=== PATIENT | female | born 1975 | race Caucasian/White ===

== ENCOUNTER → 2016-07-25 | Outpatient (CLI) | payer OTHER ==
[~2016-07-25] MED LIST: CHOL100010 PO; CHOL100027 PO; CRFL PO; DICY10CA55 PO; DOCU-94 PO; GLC/500 PO; HYDR-5688 PO; LORA-741 PO; METO50TA16 PO; MOME50SP5; ONDA4TAB10 SL; PANT40TA PO; ZNTT/150 PO
--- NOTE | 2016-07-25 16:47 | MAMMOGRAPHY REPORT ---
BILATERAL DIGITAL SCREENING MAMMOGRAM TOMOSYNTHESIS WITH CAD: 07/25/2016 CLINICAL HISTORY: Routine screening. Patient has no complaints. TECHNIQUE: Breast tomosynthesis in addition to standard 2D mammography was performed. Current study was also evaluated with a Computer Aided Detection (CAD) system. COMPARISON: Comparison is made to exams dated: 07/23/2015 mammogram, 03/04/2014 mammogram - [facility], and 02/11/2013 mammogram. BREAST COMPOSITION: There are scattered areas of fibroglandular density in both breasts. FINDINGS: The parenchymal pattern is similar to prior mammograms. No suspicious mass, architectural distortion or cluster of microcalcifications is seen. IMPRESSION: ACR BI-RADS CATEGORY 2: BENIGN There is no mammographic evidence of malignancy. A 1 year screening mammogram is recommended. The p atient will receive written notification of the results. Approximately 10% of breast cancers are not detected with mammography. A negative mammographic repor t should not delay biopsy if a clinically suggestive mass is present. Radha Hendrickson M.D. ay/:07/25/2016 16:19:43 Client Engagement Manager: Ebony DOMINGUEZ(R)(M), [facility] letter sent: Normal 1/2 BI-RADS Code: ACR BI-RADS Category 2: Benign
== END | disposition home or self-care (01) ==
LOC: C.MAMM 13:35
PROVIDERS: ATTEND Internal Medicine
DX: Z12.31 Encounter for screening mammogram for malignant neoplasm of breast (principal)

== ENCOUNTER 2016-08-15 05:40 | Emergency (ER) | payer OTHER ==
[~2016-08-15] VITALS: Ht 162.6 cm; Wt 77.9 kg
[~2016-08-15 05:40] MED LIST changes: -CHOL100027 PO; -CRFL PO; -DICY10CA55 PO; -HYDR-5688 PO
[2016-08-15 05:44] VITALS: TEMP 36.7; Ht 162.6 cm; Wt 77.9 kg
[2016-08-15] MEDS ORDERED: ONDANSETRON INJ 2 MG/ML 2 ML VIAL IV STA (06:02)
[2016-08-15] MEDS ORDERED: CHOL100027 PO (06:11)
[2016-08-15] MEDS ORDERED: MoRPHine SULFATE 4 MG/ML 1 ML CARP\\VIAL IV ONE (06:15)
[2016-08-15] MEDS ORDERED: SODIUM CHLORIDE 0.9% 1000ML 1,000 ML IV ONE (06:15)
[2016-08-15 06:32] LABS: BASO % 0.3 %; BASO ABS # 0.03 K/uL (0-0.2); COMPLETE YES; EOS % 2.3 %; HEMATOCRIT 42.8 % (37-47); IG% 0.3 %; LYMPH % 31.9 %; MEAN CELL VOLUME 90.3 fL (80-100); MEAN CORPUSCULAR HEMOGLOBIN 31.4 pg (25-34); MEAN CORPUSCULAR HGB CONC 34.8 g/dl (32-36); MEAN PLATELET VOLUME 10.4 fL (7.4-10.4); MONO % 6.1 %; NEUT % 59.1 %; PLATELET COUNT 217 K/uL (130-400); RED BLOOD COUNT 4.74 M/uL (4.2-5.4); WHITE BLOOD COUNT 11.28 K/uL (4.8-10.8)
[2016-08-15 06:51] LABS: BUN/CREATININE RATIO 12.5 (10-20); CALCIUM 8.8 mg/dl (8.5-10.1); CREATININE 0.96 mg/dl (0.60-1.20); MANUAL MICROSCOPIC REQUIRED? YES; URINE APPEARANCE CLEAR (CLEAR); URINE BILIRUBIN NEG (NEG); URINE COLOR YELLOW; URINE NITRITE NEG (NEG); URINE SPECIFIC GRAVITY >= 1.030 (1.000-1.030); UROBILINOGEN NEG (NEG)
[2016-08-15 06:53] LABS: ALB/GLOB RATIO 1.1 (0.9-2)
[2016-08-15 07:01] LABS: REVIEW REQ? NO
[2016-08-15 07:13] LABS: URINE BACTERIA 1+ (NEG); URINE MUCUS PRESENT (NONE PRSENT)
[2016-08-15 07:14] LABS: URINE RBC 0-4 /hpf (0-4)
[2016-08-15 07:16] LABS: ZZUR CULT IF INDIC CLEAN CATCH YES
--- NOTE | 2016-08-15 07:46 | DIAGNOSTIC IMAGING REPORT ---
Right upper quadrant ultrasound GALLBLADDER-ABD LIMITED CLINICAL HISTORY: RUQ abd pain TECHNIQUE: Ultrasound COMPARISON STUDY: None Findings: Normal gallbladder. Liver is uniform. Pancreas and right kidney are unremarkable. IMPRESSION: Negative study Electronically signed by: Diego Landers M.D. 08/15/2016 7:45 AM Dictated Date/Time: 08/15/2016 7:43 AM
--- NOTE | 2016-08-15 09:09 | EMERGENCY ROOM VISIT NOTE ---
ED Visit Note Patient was signed to me at change of shift by Cecil Uribe PA-C pending ultrasound reports. Please refer to his dictation for entire historical and physical examination information. Ultrasound results demonstrate no acute findings. Patient's labs were reviewed. Patient was seen and evaluated by myself. She is complaining of increasing pain in the RIGHT upper quadrant after having an ultrasound performed. I did repeat abdominal exam. Patient is minimally tender in the RIGHT upper quadrant. She had no tenderness with distraction. She is not guarding. Abdomen is soft otherwise. Patient was provided one [place] for breakthrough pain. She was provided a short prescription at home. Prescription drug monitoring per gram was reviewed prior to providing a prescription for home. The patient was encouraged to follow up with her primary care provider in 24-48 hours for repeat abdominal exam. She was educated on worrisome symptoms for return visit to the emergency department. Patient discharged home afebrile and in good condition.
[2016-08-15] MEDS ORDERED: HYDR-5688 PO (09:12)
[2016-08-15] MEDS ORDERED: HYDROCODONE/ACETAMOPHEN 5/325MG TAB PO ONE (09:15)
[2016-08-15 09:31] VITALS: BP 97/48; PULSE 64; O2SAT 99
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
== END 2016-08-15 09:32 | disposition home or self-care (01) ==
LOC: C.EDB 05:42
DX: R10.11 Right upper quadrant pain (principal); E11.9 Type 2 diabetes mellitus without complications; F41.9 Anxiety disorder, unspecified; F17.200 Nicotine dependence, unspecified, uncomplicated; Z98.51 Tubal ligation status; Z79.84 Long term (current) use of oral hypoglycemic drugs; Z79.899 Other long term (current) drug therapy; Z88.5 Allergy status to narcotic agent; Z91.041 Radiographic dye allergy status; Z91.09 Other allergy status, other than to drugs and biological substances; Z83.3 Family history of diabetes mellitus; Z80.9 Family history of malignant neoplasm, unspecified; Z82.49 Family history of ischemic heart disease and other diseases of the circulatory system

== ENCOUNTER 2016-11-16 10:40 | Emergency (ER) | payer OTHER ==
[~2016-11-16] VITALS: Ht 162.6 cm; Wt 77.9 kg
[~2016-11-16 10:40] MED LIST changes: -CHOL100010 PO; +CHOL100027 PO; +HYDR-5688 PO; -MOME50SP5
[2016-11-16 10:44] VITALS: TEMP 36.6; Ht 162.6 cm; Wt 77.9 kg
[2016-11-16 12:05] LABS: BASO % 0.2 %; BASO ABS # 0.02 K/uL (0-0.2); COMPLETE YES; EOS % 1.9 %; HEMATOCRIT 42.5 % (37-47); IG% 0.2 %; LYMPH % 37.7 %; LYMPH ABS # 3.25 K/uL (1.2-3.4); MEAN CELL VOLUME 90.6 fL (80-100); MEAN CORPUSCULAR HEMOGLOBIN 30.9 pg (25-34); MEAN CORPUSCULAR HGB CONC 34.1 g/dl (32-36); MEAN PLATELET VOLUME 10.7 fL (7.4-10.4); MONO % 7.1 %; NEUT % 52.9 %; PLATELET COUNT 203 K/uL (130-400); RED BLOOD COUNT 4.69 M/uL (4.2-5.4); WHITE BLOOD COUNT 8.61 K/uL (4.8-10.8)
[2016-11-16 12:11] LABS: URINE APPEARANCE CLEAR (CLEAR); URINE BILIRUBIN NEG (NEG); URINE COLOR YELLOW; URINE NITRITE NEG (NEG); URINE PH 7.5 (4.5-7.5); URINE SPECIFIC GRAVITY 1.007 (1.000-1.030); UROBILINOGEN NEG (NEG); ZZUR CULT IF INDIC CLEAN CATCH NO
[2016-11-16 12:17] LABS: MANUAL MICROSCOPIC REQUIRED? NO; REVIEW REQ? NO
[2016-11-16 12:29] LABS: BUN/CREATININE RATIO 11.5 (10-20); CREATININE 0.87 mg/dl (0.60-1.20); POTASSIUM 4.3 mmol/L (3.5-5.1)
[2016-11-16 12:31] LABS: ALB/GLOB RATIO 1.2 (0.9-2)
[2016-11-16] MEDS ORDERED: SODIUM CHLORIDE 0.9% 1000ML 1,000 ML IV STA (12:31)
[2016-11-16] MEDS ORDERED: ONDANSETRON INJ 2 MG/ML 2 ML VIAL IV STA (12:31)
[2016-11-16] MEDS ORDERED: MoRPHine SULFATE 4 MG/ML 1 ML CARP\\VIAL IV STA (12:31)
--- NOTE | 2016-11-16 13:15 | DIAGNOSTIC IMAGING REPORT ---
Right upper quadrant ultrasound GALLBLADDER-ABD LIMITED CLINICAL HISTORY: ABDOMINAL PAIN/GI pain. Nausea. TECHNIQUE: Ultrasound COMPARISON STUDY: 08/15/2016 FINDINGS: Negative gallbladder. Common bile duct 4.5 mm. Liver spleen and pancreas are unremarkable. Right kidney is negative for hydronephrosis. IMPRESSION: Negative study. No change from the prior exam. Electronically signed by: Diego Landers M.D. 11/16/2016 1:14 PM Dictated Date/Time: 11/16/2016 1:12 PM
[2016-11-16] MEDS ORDERED: SUCRALFATE 1 GM/10 ML UDC PO STA (14:04)
[2016-11-16] MEDS ORDERED: DICYCLOMINE HCL 10 MG CAP PO ONE (14:15)
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
[2016-11-16] MEDS ORDERED: DICY10CA55 PO (15:49)
[2016-11-16] MEDS ORDERED: CRFL PO (15:49)
[2016-11-16 16:23] VITALS: BP 97/60; PULSE 53; O2SAT 100
== END 2016-11-16 16:24 | disposition home or self-care (01) ==
LOC: C.EDC 11:49
DX: R10.13 Epigastric pain (principal); E11.9 Type 2 diabetes mellitus without complications; F41.9 Anxiety disorder, unspecified; K21.9 Gastro-esophageal reflux disease without esophagitis; Z98.51 Tubal ligation status; F17.200 Nicotine dependence, unspecified, uncomplicated; Z79.4 Long term (current) use of insulin; Z79.899 Other long term (current) drug therapy; Z88.5 Allergy status to narcotic agent; Z91.041 Radiographic dye allergy status; Z91.09 Other allergy status, other than to drugs and biological substances; Z83.3 Family history of diabetes mellitus; Z80.9 Family history of malignant neoplasm, unspecified; Z82.49 Family history of ischemic heart disease and other diseases of the circulatory system

== ENCOUNTER → 2016-11-25 | Outpatient (CLI) | payer OTHER ==
[~2016-11-25] MED LIST changes: +CRFL PO; +DICY10CA55 PO
[2016-11-30 16:27] LABS: IGA SERUM 168 mg/dL (81-463); TIS TRANS IGA 1 U/mL (<4)
== END | disposition home or self-care (01) ==
LOC: C.LAB1850 16:55
PROVIDERS: ATTEND Registered Nurse
DX: R11.0 Nausea (principal); R10.9 Unspecified abdominal pain

== ENCOUNTER → 2016-12-06 | Outpatient (CLI) | payer OTHER ==
[~2016-12-06] MED LIST changes: +SINCALIDE INJ 1.5 MCG in SODIUM CHLORIDE 0.9% 100ML 100 ML IV SCH
--- NOTE | 2016-12-06 13:05 | DIAGNOSTIC IMAGING REPORT ---
NUCLEAR MEDICINE HEPATOBILIARY SCAN WITH EJECTION FRACTION ANALYSIS CLINICAL HISTORY: R11.0 [id number] Abdominal [id number] COMPARISON STUDY: Biliary ultrasound dated 11/16/2016 FINDINGS: The patient was injected with 5.3 mCi of technetium 90 9M Choletec. Anterior imaging was performed. Hepatic excretion appeared unremarkable. There was normal passage of activity into small bowel. The gallbladder was first visualized on the 15 minute image. A 1 hour, the patient was administered 1.5 mcg of sincalide utilizing a 30 minute infusion. The gallbladder ejection fraction was normal measuring 74%. The patient did report abdominal pain with Kinevac infusion. IMPRESSION: 1. No evidence of cystic duct obstruction 2. Normal gallbladder ejection fraction of 74% 3. The patient reported abdominal pain with Kinevac infusion. Electronically signed by: Nathen Sweet M.D. 12/06/2016 1:04 PM Dictated Date/Time: 12/06/2016 1:02 PM
== END | disposition home or self-care (01) ==
LOC: C.NUCL 10:35
PROVIDERS: ATTEND Registered Nurse
DX: R11.0 Nausea (principal); R10.9 Unspecified abdominal pain

== ENCOUNTER → 2017-01-23 | Outpatient (CLI) | payer OTHER ==
[~2017-01-23] MED LIST changes: -SINCALIDE INJ 1.5 MCG in SODIUM CHLORIDE 0.9% 100ML 100 ML IV SCH
--- NOTE | 2017-01-23 10:51 | DIAGNOSTIC IMAGING REPORT ---
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 The cardiomediastinal silhouette is normal. The lungs are clear. The pulmonary vasculature is normal. IMPRESSION: Negative study. No change from the prior exam. The above report was generated using voice recognition software. It may contain grammatical, syntax or spelling errors. Electronically signed by: Diego Landers M.D. 01/23/2017 10:50 AM Dictated Date/Time: 01/23/2017 10:49 AM
[2017-01-23 12:33] LABS: ALT/SGPT 19 U/L (12-78); AST/SGOT 12 U/L (15-37); BLOOD UREA NITROGEN 10 mg/dl (7-18); BUN/CREATININE RATIO 11.1 (10-20); CALCIUM 8.7 mg/dl (8.5-10.1); CARBON DIOXIDE 28 mmol/L (21-32); CHLORIDE 106 mmol/L (98-107); CREATININE 0.94 mg/dl (0.60-1.20); GLUCOSE 134 mg/dl (70-99); POTASSIUM 4.1 mmol/L (3.5-5.1); SODIUM 139 mmol/L (136-145)
[2017-01-23 12:36] LABS: ALB/GLOB RATIO 1.2 (0.9-2); ALKALINE PHOSPHATASE 65 U/L (45-117)
== END | disposition home or self-care (01) ==
LOC: C.RAD1850 09:53
PROVIDERS: ATTEND Urology
DX: N28.89 Other specified disorders of kidney and ureter (principal)

== ENCOUNTER → 2017-02-16 | Outpatient (CLI) | payer OTHER ==
[~2017-02-16] MED LIST changes: -HYDR-5688 PO
== END | disposition home or self-care (01) ==
LOC: C.PATHSPEC 17:29
PROVIDERS: ATTEND Dermatology
DX: L91.8 Other hypertrophic disorders of the skin (principal)

== ENCOUNTER 2017-02-18 13:56 | Emergency (ER) | payer OTHER ==
[~2017-02-18] VITALS: Ht 162.6 cm; Wt 77.9 kg
[2017-02-18 14:04] VITALS: TEMP 36.6; Ht 162.6 cm; Wt 77.9 kg
[2017-02-18] MEDS ORDERED: MoRPHine SULFATE 4 MG/ML 1 ML CARP\\VIAL IV STA (14:16)
[2017-02-18] MEDS ORDERED: ONDANSETRON INJ 2 MG/ML 2 ML VIAL IV STA (14:16)
[2017-02-18 15:01] LABS: BASO % 0.3 %; BASO ABS # 0.02 K/uL (0-0.2); COMPLETE YES; HEMATOCRIT 41.3 % (37-47); IG% 0.3 %; LYMPH % 40.1 %; LYMPH ABS # 3.05 K/uL (1.2-3.4); MEAN CELL VOLUME 90.6 fL (80-100); MEAN CORPUSCULAR HGB CONC 35.4 g/dl (32-36); MEAN PLATELET VOLUME 10.4 fL (7.4-10.4); MONO % 5.8 %; NEUT % 51.5 %; PLATELET COUNT 230 K/uL (130-400); RED BLOOD COUNT 4.56 M/uL (4.2-5.4); WHITE BLOOD COUNT 7.61 K/uL (4.8-10.8)
[2017-02-18] MEDS ORDERED: HYDROmorphone INJ 1 MG/ML SYR IV STA (15:06)
[2017-02-18 15:20] LABS: BUN/CREATININE RATIO 10.1 (10-20); CALCIUM 8.9 mg/dl (8.5-10.1); CREATININE 0.95 mg/dl (0.60-1.20); POTASSIUM 3.9 mmol/L (3.5-5.1)
--- NOTE | 2017-02-18 15:46 | DIAGNOSTIC IMAGING REPORT ---
CHEST 2 VIEWS ROUTINE CLINICAL HISTORY: Chest pain. Evaluate for pneumothorax. COMPARISON STUDY: Chest radiograph January 23, 2017. FINDINGS: Lung volumes are normal. No consolidation is identified. No pneumothorax or pleural effusion is present. Cardiomediastinal silhouette is normal. Appearance of the chest is unchanged. IMPRESSION: No acute cardiopulmonary findings. Electronically signed by: Ricky Mendoza M.D. 02/18/2017 3:45 PM Dictated Date/Time: 02/18/2017 3:44 PM
--- NOTE | 2017-02-18 15:48 | DIAGNOSTIC IMAGING REPORT ---
THORACIC SPINE 3 VIEWS ROUTINE CLINICAL HISTORY: Chest and upper back pain. Evaluate for fracture. COMPARISON STUDY: Chest radiograph March 28, 2016. FINDINGS: Alignment of the thoracic spine is anatomic. There is no acute fracture. Several Schmorl's nodes are unchanged since earlier CT of March 25, 2016 with slight loss of vertebral body height at the T10 and L2 levels. There is minimal multilevel degenerative disc disease. There is no acute thoracic spine fracture. IMPRESSION: 1. No acute thoracic spine fracture or subluxation. 2. No change in a few Schmorl's nodes with slight loss of height of the superior endplates of L2 and T10. This is chronic. 3. Minimal multilevel degenerative disc disease of the thoracic spine. Electronically signed by: Ricky Mendoza M.D. 02/18/2017 3:47 PM Dictated Date/Time: 02/18/2017 3:45 PM
[2017-02-18 16:52] VITALS: BP 154/76; PULSE 54; O2SAT 98
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
== END 2017-02-18 16:59 | disposition home or self-care (01) ==
LOC: C.EDB 13:59
DX: R07.9 Chest pain, unspecified (principal); M54.6 Pain in thoracic spine; E11.9 Type 2 diabetes mellitus without complications; F17.210 Nicotine dependence, cigarettes, uncomplicated; F41.9 Anxiety disorder, unspecified; Z83.3 Family history of diabetes mellitus; Z80.9 Family history of malignant neoplasm, unspecified; Z82.49 Family history of ischemic heart disease and other diseases of the circulatory system; Z79.899 Other long term (current) drug therapy

== ENCOUNTER → 2017-03-09 | Outpatient (CLI) | payer OTHER ==
[~2017-03-09] MED LIST changes: -CRFL PO; -DICY10CA55 PO; -DOCU-94 PO; -ONDA4TAB10 SL
== END | disposition home or self-care (01) ==
LOC: C.PATHSPEC 11:05
PROVIDERS: ATTEND Plastic Surgery
DX: L72.0 Epidermal cyst (principal)

== ENCOUNTER 2017-04-02 21:45 | Emergency (ER) | payer OTHER ==
[~2017-04-02] VITALS: Ht 162.6 cm; Wt 79.0 kg
[2017-04-02 21:51] VITALS: TEMP 37.3; Ht 162.6 cm; Wt 79.0 kg
[2017-04-02] MEDS ORDERED: HYDROmorphone INJ 1 MG/ML SYR IV STA (22:12)
[2017-04-02] MEDS ORDERED: ONDANSETRON INJ 2 MG/ML 2 ML VIAL IV STA (22:12)
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
[2017-04-02 23:20] VITALS: BP 114/80; PULSE 78; O2SAT 98
== END 2017-04-02 23:21 | disposition home or self-care (01) ==
LOC: C.EDB 21:46 → C.EDC 23:21
DX: M25.512 Pain in left shoulder (principal); F41.9 Anxiety disorder, unspecified; E11.9 Type 2 diabetes mellitus without complications; Z83.3 Family history of diabetes mellitus; Z82.49 Family history of ischemic heart disease and other diseases of the circulatory system; F17.200 Nicotine dependence, unspecified, uncomplicated

== ENCOUNTER → 2017-05-17 | Outpatient (CLI) | payer OTHER | END | disposition home or self-care (01) | LOC: C.LABBFT 14:12 | PROVIDERS: ATTEND Nurse Practitioner | DX: R39.9 Unspecified symptoms and signs involving the genitourinary system (principal) ==

== ENCOUNTER → 2017-06-07 | Outpatient (CLI) | payer OTHER ==
[2017-06-07 18:04] LABS: URINE APPEARANCE CLEAR (CLEAR); URINE BILIRUBIN NEG (NEG); URINE COLOR YELLOW; URINE EPITHELIAL CELL AUTO >30 /lpf (0-5); URINE NITRITE NEG (NEG); URINE PH 6.5 (4.5-7.5); URINE SPECIFIC GRAVITY 1.012 (1.000-1.030); UROBILINOGEN NEG (NEG)
[2017-06-07 18:20] LABS: REVIEW REQ? NO
[2017-06-07 18:21] LABS: MANUAL MICROSCOPIC REQUIRED? NO
== END | disposition home or self-care (01) ==
LOC: C.LABBFT 14:54
PROVIDERS: ATTEND Nurse Practitioner
DX: R39.9 Unspecified symptoms and signs involving the genitourinary system (principal)

== ENCOUNTER → 2017-07-13 | Outpatient (CLI) | payer OTHER ==
[2017-07-13 12:45] LABS: ALBUMIN 3.9 gm/dl (3.4-5.0); ALT/SGPT 17 U/L (12-78); BLOOD UREA NITROGEN 12 mg/dl (7-18); CALCIUM 9.5 mg/dl (8.5-10.1); CARBON DIOXIDE 26 mmol/L (21-32); CHOLESTEROL 173 mg/dl (0-200); CREATININE 0.83 mg/dl (0.60-1.20); GLUCOSE 90 mg/dl (70-99); POTASSIUM 4.3 mmol/L (3.5-5.1); SODIUM 138 mmol/L (136-145)
[2017-07-13 12:48] LABS: ALKALINE PHOSPHATASE 59 U/L (45-117); AST/SGOT 10 U/L (15-37); LDL CHOLESTEROL CALCULATED 105 mg/dl; TOTAL PROTEIN 7.3 gm/dl (6.4-8.2)
[2017-07-13 13:17] LABS: HEMOGLOBIN A1C 5.3 % (4.5-5.6)
== END | disposition home or self-care (01) ==
LOC: C.LABBFT 10:21
PROVIDERS: ATTEND Physician Assistant Medical
DX: C64.9 Malignant neoplasm of unspecified kidney, except renal pelvis (principal); E11.9 Type 2 diabetes mellitus without complications

== ENCOUNTER → 2017-07-26 | Outpatient (CLI) | payer OTHER ==
--- NOTE | 2017-07-27 13:43 | MAMMOGRAPHY REPORT ---
BILATERAL DIGITAL SCREENING MAMMOGRAM TOMOSYNTHESIS WITH CAD: 07/26/2017 CLINICAL HISTORY: Routine screening. The patient reported pain in the left breast for 3-4 weeks to o interventional technologist during this screening exam. TECHNIQUE: Breast tomosynthesis in addition to standard 2D mammography was performed. Current study was also evaluated with a Computer Aided Detection (CAD) system. COMPARISON: Comparison is made to exams dated: 07/25/2016 mammogram, 07/23/2015 mammogram, 03/04/2014 ma mmogram - [facility], and 02/11/2013 mammogram. BREAST COMPOSITION: There are scattered areas of fibroglandular density in both breasts. FINDINGS: There is a newly visualized oval circumscribed 11 x 8 mm mass in the approximate 1:00 midd le one third of the left breast. A square-shaped pain marker overlies the left breast at approximate ly 12:00 and it is unclear if this new mass corresponds with the patient's pain. Nevertheless, addit ional targeted ultrasound and possible additional mammographic views are recommended. No other suspicious mass, architectural distortion or cluster of microcalcifications is seen bilatera lly. IMPRESSION: ACR BI-RADS CATEGORY 0: INCOMPLETE EVALUATION: NEED ADDITIONAL IMAGING EVALUATION The newly visualized oval, 11 x 8 mm mass in the approximate 1:00 left breast needs additional evalua tion. The area of pain described by the patient should also be evaluated with ultrasound during diag nostic workup. The patient will be called to schedule an appointment. Approximately 10% of breast cancers are not detected with mammography. A negative mammographic report should not delay biopsy if a clinically suggestive mass is present. Radha Hendrickson M.D. ay/:07/26/2017 15:49:33 Delivery Rep: Ebony DOMINGUEZ(Moraima)(M), [facility] letter sent: Addl Imaging 0 BI-RADS Code: ACR BI-RADS Category 0: Incomplete Evaluation: Need Additional Imaging Evaluation
== END | disposition home or self-care (01) ==
LOC: C.MAMM 13:33
PROVIDERS: ATTEND Internal Medicine
DX: Z12.13 Encounter for screening for malignant neoplasm of small intestine (principal); N63.21 Unspecified lump in the left breast, upper outer quadrant

== ENCOUNTER 2017-07-29 17:42 | Emergency (ER) | payer OTHER ==
[~2017-07-29] VITALS: Ht 162.6 cm; Wt 79.6 kg
[2017-07-29 17:48] VITALS: TEMP 36.9; Ht 162.6 cm; Wt 79.6 kg
[2017-07-29 17:53] VITALS: O2SAT 100
[2017-07-29] MEDS ORDERED: ONDANSETRON INJ 2 MG/ML 2 ML VIAL IV STA ×2 (18:01→20:42)
[2017-07-29] MEDS ORDERED: METOPROLOL TARTRATE 1 MG/ML VIAL IV STA ×2 (18:01→19:14)
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
[2017-07-29] MEDS ORDERED: SODIUM CHLORIDE 0.9% 1000ML 1,000 ML IV ONE (18:15)
[2017-07-29 18:20] LABS: BASO % 0.2 %; BASO ABS # 0.02 K/uL (0-0.2); EOS % 1.4 %; EOS ABS # 0.13 K/uL (0-0.5); HEMATOCRIT 44.5 % (37-47); HEMOGLOBIN 15.7 g/dL (12.0-16.0); IG# 0.01 K/uL (0.00-0.02); LYMPH % 38.6 %; LYMPH ABS # 3.62 K/uL (1.2-3.4); MEAN CELL VOLUME 88.5 fL (80-100); MEAN CORPUSCULAR HEMOGLOBIN 31.2 pg (25-34); MEAN CORPUSCULAR HGB CONC 35.3 g/dl (32-36); MONO % 6.3 %; MONO ABS # 0.59 K/uL (0.11-0.59); NEUT % 53.4 %; PLATELET COUNT 267 K/uL (130-400); RED CELL DISTRIBUTION WIDTH CV 12.8 % (11.5-14.5); RED CELL DISTRIBUTION WIDTH SD 41.3 fL (36.4-46.3); WHITE BLOOD COUNT 9.37 K/uL (4.8-10.8)
--- NOTE | 2017-07-29 19:03 | DIAGNOSTIC IMAGING REPORT ---
CHEST ONE VIEW PORTABLE HISTORY: Atypical chest pain to shoulder blades. COMPARISON: Chest 02/18/2017. FINDINGS: The lungs are clear. Cardiac silhouette is normal in size. No pleural effusions. No pneumothorax. IMPRESSION: No acute process. Electronically signed by: Gen Eason M.D. 07/29/2017 7:02 PM Dictated Date/Time: 07/29/2017 7:01 PM
[2017-07-29] MEDS ORDERED: METH8TAB5 PO (19:11)
[2017-07-29] MEDS ORDERED: PANT40TA2 PO (19:11)
[2017-07-29] MEDS ORDERED: RANI150T2 PO (19:11)
[2017-07-29] MEDS ORDERED: LORA0.5T12 PO (19:11)
[2017-07-29] MEDS ORDERED: GLC500 PO (19:11)
[2017-07-29] MEDS ORDERED: METO25TA56 PO (19:11)
[2017-07-29 19:24] LABS: ALBUMIN 4.2 gm/dl (3.4-5.0); CALCIUM 9.5 mg/dl (8.5-10.1); CREATININE 1.07 mg/dl (0.60-1.20); TOTAL PROTEIN 8.1 gm/dl (6.4-8.2)
[2017-07-29 19:25] LABS: CKMB 1.6 ng/ml (0.5-3.6); LIPASE 136 U/L (73-393)
[2017-07-29] MEDS ORDERED: HYDROmorphone INJ 1 MG/ML SYR IV STA (19:30)
[2017-07-29 19:53] LABS: POTASSIUM 3.8 mmol/L (3.5-5.1)
[2017-07-29] MEDS ORDERED: TRAM-10 PO (20:56)
[2017-07-29 21:03] VITALS: BP 110/85; PULSE 89; O2SAT 99
--- NOTE | 2017-07-29 21:09 | EMERGENCY ROOM VISIT NOTE ---
ED Visit Note First contact with patient: 17:49 The patient was seen and examined with Keli Pandey PA-C. I agree with the history, physical and findings. Please see the note for disposition and details. She is doing well and feeling much better. She was counseled on drinking and her medications.
== END 2017-07-29 21:12 | disposition home or self-care (01) ==
LOC: C.EDB 17:43 → C.EDC 21:12
DX: R00.2 Palpitations (principal); R07.9 Chest pain, unspecified; F41.9 Anxiety disorder, unspecified; E11.9 Type 2 diabetes mellitus without complications; Z79.84 Long term (current) use of oral hypoglycemic drugs; Z87.891 Personal history of nicotine dependence; Z83.3 Family history of diabetes mellitus; Z80.9 Family history of malignant neoplasm, unspecified; Z82.49 Family history of ischemic heart disease and other diseases of the circulatory system

== ENCOUNTER → 2017-07-31 | Outpatient (CLI) | payer OTHER ==
[~2017-07-31] MED LIST changes: -CHOL100027 PO; -GLC/500 PO; +GLC500 PO; -LORA-741 PO; +LORA0.5T12 PO; +METH8TAB5 PO; +METO25TA56 PO; -METO50TA16 PO; -PANT40TA PO; +PANT40TA2 PO; +RANI150T2 PO; +TRAM-10 PO; -ZNTT/150 PO
--- NOTE | 2017-07-31 10:39 | DIAGNOSTIC IMAGING REPORT ---
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 TECHNIQUE: Multidetector CT of the abdomen and pelvis was performed before and after the administration of intravenous contrast. IV contrast: 121 mL of Optiray 320. A dose lowering technique was used consistent with the principles of ALARA (as low as reasonably achievable). COMPARISON: 03/25/2016. CT DOSE (mGy.cm): The estimated cumulative dose is 1981.43 mGycm. 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 Lung bases: Minimal basilar opacities, likely atelectasis. Mosaic attenuation at the lung bases could suggest small airways disease. Normal heart size. No pericardial or pleural effusion. Liver: Normal morphology. No liver lesion. Patent hepatic vasculature. Biliary: No intrahepatic or extrahepatic biliary ductal dilatation. Normal gallbladder. Pancreas: Normal. Spleen: Normal. Adrenal glands: Normal. Kidneys and ureters: Postsurgical changes of the anterior aspect of the interpolar region of the right kidney consistent with partial nephrectomy. The appearance is unchanged since the prior exam. No evidence of suspicious soft tissue nodularity to suggest residual or recurrent disease. No new renal mass. No nephrolithiasis. No hydronephrosis. No filling defect within the renal collecting systems allowing for suboptimal opacification of the mid to distal ureters bilaterally. Bladder: Normal. Pelvic organs: Suggestion of left hydrosalpinx. Prominent follicles in the ovaries bilaterally. Normal appearance of the uterus. Bowel: Mild stool burden throughout normal caliber colon. The appendix is normal. Feces in the distal small bowel could suggest delayed transit. No bowel obstruction. Peritoneal cavity: No free fluid or intraperitoneal gas. Lymph nodes: Mildly prominent lymph nodes in the portacaval region, possibly reactive. This is unchanged since the prior exam. No new adenopathy. Vasculature: Aorta and IVC patent and normal in caliber. Retroaortic left renal vein. Abdominal wall: Small fat-containing umbilical hernia. Musculoskeletal: Degenerative changes of the spine. No destructive osseous lesion. IMPRESSION: 1. Stable appearance of the postsurgical changes of partial right nephrectomy. No residual or recurrent disease. No lymphadenopathy. 2. Cystic lesion in the left adnexa is felt to most likely represent left hydrosalpinx. This was likely present dating back to 2014 and would be better evaluated on transvaginal pelvic ultrasound. The etiology for this is indeterminate. Electronically signed by: Ananth Campuzano M.D. 07/31/2017 10:38 AM Dictated Date/Time: 07/31/2017 10:28 AM
--- NOTE | 2017-07-31 10:48 | DIAGNOSTIC IMAGING REPORT ---
TWO VIEW CHEST CLINICAL HISTORY: Renal cell carcinoma. FINDINGS: PA and lateral chest radiographs are compared to study dated 07/29/2017. Correlation is made with chest CT dated 01/29/2015. The cardiomediastinal silhouette is unremarkable. Chronic interstitial thickening is similar to previous. No airspace consolidation or pleural effusion is identified. There is no radiographic evidence of pulmonary nodule. There is no pneumothorax. The bony thorax appears intact. Surgical clips are noted in the right upper quadrant. IMPRESSION: No active disease in the chest. Electronically signed by: Paco Mcconnell M.D. 07/31/2017 10:47 AM Dictated Date/Time: 07/31/2017 10:45 AM
== END | disposition home or self-care (01) ==
LOC: C.CTS 09:47
PROVIDERS: ATTEND Urology
DX: C64.9 Malignant neoplasm of unspecified kidney, except renal pelvis (principal); Z90.5 Acquired absence of kidney; R19.09 Other intra-abdominal and pelvic swelling, mass and lump

== ENCOUNTER → 2017-08-02 | Outpatient (CLI) | payer OTHER ==
[2017-08-02 12:36] LABS: BLOOD UREA NITROGEN 10 mg/dl (7-18); CREATININE 0.93 mg/dl (0.60-1.20)
== END | disposition home or self-care (01) ==
LOC: C.LAB 09:44
PROVIDERS: ATTEND Urology
DX: C64.9 Malignant neoplasm of unspecified kidney, except renal pelvis (principal); E11.9 Type 2 diabetes mellitus without complications

== ENCOUNTER → 2017-08-07 | Outpatient (CLI) | payer OTHER ==
--- NOTE | 2017-08-07 15:04 | MAMMOGRAPHY REPORT ---
ULTRASOUND OF LEFT BREAST: 08/07/2017 CLINICAL HISTORY: 41-year-old woman called back from screening mammography for an oval 11 mass in the left upper outer quadrant. She had also reported focal left breast pain during that screening appoi ntment and ultrasound was also performed in the area of pain pointed out by the patient. COMPARISON: Comparison is made to exams dated: 07/26/2017 mammogram, 07/25/2016 mammogram, 07/23/2015 m ammogram, 03/04/2014 mammogram - [facility], and 02/11/2013 mammogram. FINDINGS: Targeted ultrasound was first performed in the area of pain pointed out by the patient in t he approximate 10:00 to 10:30 left breast, 20 cm from the nipple and then additional scanning was per formed more laterally in the left breast to assess for the oval and circumscribed mammographic mass. In the area of approximate pain pointed out by the patient, the 10:00 left breast, 20 cm from the nip ple, no discrete solid or cystic mass is seen. However, in the 10:00 left breast, 9 cm from the nipp le, there is an oval parallel circumscribed hypoechoic solid appearing mass measuring 6.5 x 2.6 x 6.0 mm. This could represent a benign fibroadenoma or prominent fat lobule. Additional scanning perfor med in the 1:00 left breast, 7 cm from the nipple demonstrates an oval parallel circumscribed hypoech oic solid versus cystic mass with possible mild posterior acoustic enhancement. This mass measures 1 0.9 x 4.1 x 10.6 mm and again this could represent a cyst, or fibroadenoma. Given the benign sonogra phic features of the mass in the 1:00 axis and also the mass in the 10:00 axis which was incidentally identified, a short interval follow-up targeted left breast ultrasound and tomosynthesis mammogram i s recommended to ensure stability in 6 months. IMPRESSION: ACR-BI-RADS CATEGORY 3: PROBABLY BENIGN - FOLLOW-UP RECOMMENDED 1. There is no suspicious sonographic abnormality in the area of pain pointed out by the patient, wi thin the 10:00 left breast, 20 cm from the nipple. Therefore, clinical follow-up is recommended. 2. The 11 mm oval circumscribed mass seen in the left upper outer quadrant on recent screening mammo gram corresponds to a benign-appearing circumscribed, parallel, solid versus cystic 10.9 mm mass in t he 1:00 breast on ultrasound. A second similar appearing oval, parallel and circumscribed subcentime ter mass is incidentally identified in the 10:00 left breast, 9 cm from the nipple. A short interval follow-up left diagnostic tomosynthesis mammogram and repeat targeted ultrasound in both the 10:00 a nd 1:00 axes is recommended to ensure stability in 6 months. These results and recommendations were discussed with the patient at the time of the exam. She tenta tively scheduled the left breast follow-up appointment prior to leaving our department. Radha Hendrickson M.D. ay/:08/07/2017 12:19:33 Rotary Furnace Operator: Angela VALDIVIA)(Leeann), [facility] letter sent: Follow Up Recommended 3 BI-RADS Code: ACR-BI-RADS Category 3: Probably Benign
== END | disposition home or self-care (01) ==
LOC: C.MAMM 10:49
PROVIDERS: ATTEND Internal Medicine
DX: N63.21 Unspecified lump in the left breast, upper outer quadrant (principal); N63.22 Unspecified lump in the left breast, upper inner quadrant; N64.4 Mastodynia

== ENCOUNTER → 2017-08-29 | Outpatient (CLI) | payer OTHER | END | disposition home or self-care (01) | LOC: C.PAPS 16:42 | PROVIDERS: ATTEND Obstetrics & Gynecology | DX: Z12.4 Encounter for screening for malignant neoplasm of cervix (principal) ==

== ENCOUNTER → 2017-09-01 | Outpatient (CLI) | payer OTHER ==
--- NOTE | 2017-09-01 15:55 | DIAGNOSTIC IMAGING REPORT ---
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 TECHNIQUE: Multisequence, multiplanar MR imaging of the brain was performed without the use of intravenous contrast. IV contrast: None. COMPARISON: None. FINDINGS: Ventricles and sulci normal in size. Periventricular and subcortical white matter T2/FLAIR hyperintensity, nonspecific but likely indicative of chronic small vessel ischemic change. No mass effect or midline shift. No restricted diffusion to suggest acute ischemia. No hemorrhage. No extra-axial fluid collection. T2 skull base flow voids preserved. Bone marrow signal intensity within the calvarium within normal limits. IMPRESSION: 1. No acute intracranial abnormality. Electronically signed by: Ananth Campuzano M.D. 09/01/2017 3:53 PM Dictated Date/Time: 09/01/2017 3:48 PM
== END | disposition home or self-care (01) ==
LOC: C.MRIBC 14:59
PROVIDERS: ATTEND Internal Medicine
DX: C64.9 Malignant neoplasm of unspecified kidney, except renal pelvis (principal); G51.4 Facial myokymia; H57.9 Unspecified disorder of eye and adnexa; I67.9 Cerebrovascular disease, unspecified; R51 Headache; R90.89 Other abnormal findings on diagnostic imaging of central nervous system

== ENCOUNTER → 2017-09-18 | Outpatient (CLI) | payer OTHER ==
--- NOTE | 2017-09-18 10:47 | DIAGNOSTIC IMAGING REPORT ---
PELVIC COMPLETE NON OB CLINICAL HISTORY: 41 years-old Female presenting with N94.9 Adnexal [id number], , history of tubal ligation with reversal, no abnormal bleeding, last menstrual period 09/08/2017, adnexal lesion. TECHNIQUE: Real-time grayscale and color and spectral Doppler ultrasound imaging of the pelvis was performed first using a transabdominal probe and subsequently transvaginal for better characterization. COMPARISON: Ultrasound from [address] from 07/31/2017. 2 FINDINGS: Uterus: Normal. Anteverted. The uterus measures 8.1 x 3.9 x 5.0 cm. Endometrial stripe measures 9 mm in thickness. Endometrium normal-appearing. Cervix normal. Right adnexa: Right ovary contains a dominant follicle.. Right ovary measures 3.2 x 1.7 x 2.1 cm. Normal color Doppler flow and arterial and venous waveforms within the ovarian parenchyma. Left adnexa: Left ovary contains a dominant follicle.. Left ovary measures 2.5 x 2.1 x 2.7 cm. Normal color Doppler flow and arterial and venous waveforms within the ovarian parenchyma. Thick-walled tubular structure in the left adnexa medial to the left ovary has a cogwheel configuration and anechoic contents. This is consistent with hydrosalpinx. Other: No free fluid. IMPRESSION: Findings consistent with left hydrosalpinx. Normal uterus and ovaries without evidence of ovarian torsion. Electronically signed by: Ananth Campuzano M.D. 09/18/2017 10:46 AM Dictated Date/Time: 09/18/2017 10:41 AM
--- NOTE | 2017-09-25 10:08 | DIAGNOSTIC IMAGING REPORT ---
PELVIC COMPLETE NON OB CLINICAL HISTORY: 41 years-old Female presenting with N94.9 Adnexal [id number], , history of tubal ligation with reversal, no abnormal bleeding, last menstrual period 09/08/2017, adnexal lesion. TECHNIQUE: Real-time grayscale and color and spectral Doppler ultrasound imaging of the pelvis was performed first using a transabdominal probe and subsequently transvaginal for better characterization. COMPARISON: Ultrasound from [address] from 07/31/2017. 2 FINDINGS: Uterus: Normal. Anteverted. The uterus measures 8.1 x 3.9 x 5.0 cm. Endometrial stripe measures 9 mm in thickness. Endometrium normal-appearing. Cervix normal. Right adnexa: Right ovary contains a dominant follicle.. Right ovary measures 3.2 x 1.7 x 2.1 cm. Normal color Doppler flow and arterial and venous waveforms within the ovarian parenchyma. Left adnexa: Left ovary contains a dominant follicle.. Left ovary measures 2.5 x 2.1 x 2.7 cm. Normal color Doppler flow and arterial and venous waveforms within the ovarian parenchyma. Thick-walled tubular structure in the left adnexa medial to the left ovary has a cogwheel configuration and anechoic contents. This is consistent with hydrosalpinx. Other: No free fluid. IMPRESSION: Findings consistent with left hydrosalpinx. Normal uterus and ovaries without evidence of ovarian torsion. Electronically signed by: Ananth Campuzano M.D. 09/18/2017 10:46 AM Dictated Date/Time: 09/18/2017 10:41 AM
== END | disposition home or self-care (01) ==
LOC: C.ULTR 09:47
PROVIDERS: ATTEND Obstetrics & Gynecology
DX: N94.9 Unspecified condition associated with female genital organs and menstrual cycle (principal); N70.11 Chronic salpingitis

== ENCOUNTER → 2017-09-27 | Outpatient (CLI) | payer OTHER | END | disposition home or self-care (01) | LOC: C.LABSPEC 11:06 | PROVIDERS: ATTEND Urology | DX: C64.9 Malignant neoplasm of unspecified kidney, except renal pelvis (principal) ==

== ENCOUNTER 2017-11-20 22:44 | Emergency (ER) | payer OTHER ==
[~2017-11-20] VITALS: Ht 162.6 cm; Wt 80.8 kg
[2017-11-20 22:49] VITALS: TEMP 36.7; Ht 162.6 cm; Wt 80.8 kg
[2017-11-20] MEDS ORDERED: SODIUM CHLORIDE 0.9% 500ML 500 ML IV STA (23:12)
[2017-11-20] MEDS ORDERED: ONDANSETRON INJ 2 MG/ML 2 ML VIAL IV STA (23:12)
[2017-11-20] MEDS ORDERED: FENTANYL CITRATE INJ 50 MCG/1 ML 2 ML VIAL IV STA (23:12)
[2017-11-20 23:31] LABS: BASO % 0.3 %; BASO ABS # 0.03 K/uL (0-0.2); EOS % 2.5 %; EOS ABS # 0.26 K/uL (0-0.5); HEMOGLOBIN 13.8 g/dL (12.0-16.0); IG# 0.01 K/uL (0.00-0.02); LYMPH ABS # 4.45 K/uL (1.2-3.4); MEAN CELL VOLUME 89.4 fL (80-100); MEAN CORPUSCULAR HEMOGLOBIN 31.7 pg (25-34); MEAN CORPUSCULAR HGB CONC 35.4 g/dl (32-36); MEAN PLATELET VOLUME 10.3 fL (7.4-10.4); MONO % 5.9 %; MONO ABS # 0.62 K/uL (0.11-0.59); NEUT % 49.2 %; NEUT ABS # 5.22 K/uL (1.4-6.5); PLATELET COUNT 221 K/uL (130-400); RED CELL DISTRIBUTION WIDTH SD 42.8 fL (36.4-46.3); WHITE BLOOD COUNT 10.59 K/uL (4.8-10.8)
[2017-11-20] MEDS ORDERED: CHOL1000 PO (23:44)
[2017-11-20] MEDS ORDERED: CAL1CHW4 PO (23:45)
[2017-11-20] MEDS ORDERED: ONDA4TAB46 PO (23:48)
[2017-11-20] MEDS ORDERED: CYCL5TAB PO (23:49)
[2017-11-20] MEDS ORDERED: MELO7.5T5 PO (23:50)
[2017-11-20] MEDS ORDERED: ESCI10TA17 PO (23:51)
[2017-11-20 23:57] LABS: ALBUMIN 3.6 gm/dl (3.4-5.0); CALCIUM 8.3 mg/dl (8.5-10.1); CREATININE 0.94 mg/dl (0.60-1.20); POTASSIUM 3.7 mmol/L (3.5-5.1); TOTAL PROTEIN 6.9 gm/dl (6.4-8.2)
[2017-11-21] MEDS ORDERED: ONDANSETRON INJ 2 MG/ML 2 ML VIAL IV STA (02:02)
[2017-11-21] MEDS ORDERED: KETOROLAC TROMETHAMINE 30 MG/ML VIAL IV STA (02:02)
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
[2017-11-21 04:13] VITALS: BP 105/72; PULSE 76; O2SAT 98
[2017-11-21] MEDS ORDERED: TRAMADOL HCL 50 MG HOME PACK PO ONE (04:15)
--- NOTE | 2017-11-21 06:56 | DIAGNOSTIC IMAGING REPORT ---
CT OF THE ABDOMEN AND PELVIS WITHOUT CONTRAST CLINICAL HISTORY: Right-sided abdominal pain and nausea. COMPARISON STUDY: CT of the abdomen and pelvis December or 2017 and right upper quadrant ultrasound November 21, 2017. TECHNIQUE: Axial images of the abdomen and pelvis were obtained without IV contrast. Images were reviewed in the axial, sagittal, and coronal planes. A dose lowering technique was utilized adhering to the principles of ALARA. FINDINGS: Lung bases are clear. No renal, ureteral or bladder calculi are present. Evaluation of the abdomen and pelvis is suboptimal on this unenhanced examination. There are stable post operative findings consistent with a partial right nephrectomy. Unenhanced images of the liver, spleen, adrenal glands and pancreas are within normal limits. There is no evidence for bowel obstruction. The appendix is normal. No pneumatosis, free air or portal venous gas is present. There are no suspicious osseous lesions. There is no lymphadenopathy. Gallbladder is contracted. Cystic left adnexal structure remains unchanged dating back to CT of April 08, 2015. IMPRESSION: 1. No acute process within the abdomen or pelvis on unenhanced exam. 2. No bowel obstruction. Normal appendix. 3. Stable postoperative findings consistent with a partial right nephrectomy. No evidence for recurrent malignancy. 4. Stable cystic left adnexal structure. Electronically signed by: Ricky Mendoza M.D. 11/21/2017 6:55 AM Dictated Date/Time: 11/21/2017 6:49 AM
--- NOTE | 2017-11-21 07:11 | DIAGNOSTIC IMAGING REPORT ---
ABDOMINAL ULTRASOUND, RIGHT UPPER QUADRANT HISTORY: Right upper quadrant abdominal pain. COMPARISON: CT of the abdomen and pelvis July 31, 2017 FINDINGS: Liver is sonographically normal. Gallbladder is contracted. No gallstones are identified. Pancreas is obscured by overlying bowel gas. There is no biliary ductal dilatation. Echogenic shadowing foci along the right capsule of the right kidney reflect postsurgical change as shown on prior CT of July 31, 2017. There is no right hydronephrosis. IMPRESSION: No significant abnormality identified within the right upper quadrant. Electronically signed by: Ricky Mendoza M.D. 11/21/2017 7:10 AM Dictated Date/Time: 11/21/2017 7:09 AM
== END 2017-11-21 04:14 | disposition home or self-care (01) ==
LOC: C.EDB 22:45 → C.EDA 11-21 04:14
DX: R10.11 Right upper quadrant pain (principal); R11.0 Nausea; F41.9 Anxiety disorder, unspecified; E11.9 Type 2 diabetes mellitus without complications; F17.210 Nicotine dependence, cigarettes, uncomplicated; Z79.84 Long term (current) use of oral hypoglycemic drugs; Z79.899 Other long term (current) drug therapy; Z91.048 Other nonmedicinal substance allergy status; Z91.041 Radiographic dye allergy status; Z88.5 Allergy status to narcotic agent

== ENCOUNTER → 2018-02-05 | Outpatient (CLI) | payer OTHER ==
[~2018-02-05] MED LIST changes: +CAL1CHW4 PO; +CHOL1000 PO; +CYCL5TAB PO; +ESCI10TA17 PO; -METH8TAB5 PO; +ONDA4TAB46 PO; -TRAM-10 PO
--- NOTE | 2018-02-05 15:12 | MAMMOGRAPHY REPORT ---
UNILATERAL LEFT DIGITAL DIAGNOSTIC MAMMOGRAM TOMOSYNTHESIS WITH CAD AND LEFT ULTRASOUND: 02/05/2018 CLINICAL HISTORY: 42-year-old woman presents for follow-up in the left breast, for benign-appearing s olid versus cystic masses identified in the 10:00 and 1:00 axes on targeted ultrasound. The 1:00 mass was also thought to be identified mammographically on the tomosynthesis images. TECHNIQUE: Left breast CC and MLO 2D and tomosynthesis images were obtained. Current study was also evaluated with a Computer Aided Detection (CAD) system. COMPARISON: Comparison is made to exams dated: 07/26/2017 mammogram, 07/25/2016 mammogram, 07/23/2015 m ammogram, 03/04/2014 mammogram - [facility], and 02/11/2013 mammogram. BREAST COMPOSITION: There are scattered areas of fibroglandular density in left breast. FINDINGS: An oval 12 mm mass is no longer seen in the lateral, middle one third of the left breast on the CC tomosynthesis images. Overall, no definite masses, asymmetries, areas of architectural disto rtion or suspicious calcifications are seen throughout the left breast including the tomosynthesis im ages. No focal skin thickening or nipple retraction. Targeted ultrasound was performed in the left breast at 1:00 and 10:00. In the 1:00 left breast, 7 c m from the nipple, there is a small hypoechoic oval parallel circumscribed mass measuring 4.0 x 2.4 x 5.0 mm. This represents significant interval decrease in size comparing to the prior ultrasound, at which time the visualized mass measured 10.9 x 4.1 x 10.6 mm. The interval decrease in size confirm s benignity, this likely also explains why this mass is no longer visualized mammographically. In the 10:00 left breast, 9 cm from the nipple, there is an oval parallel circumscribed hypoechoic so lid versus cystic mass measuring 6.5 x 2.9 x 4.1 mm. This is unchanged in size and appearance dating back to August 07, 2017 at which time it measured 6.5 x 2.6 x 6.0 mm. This could represent a compl icated cyst or benign solid mass such as a fibroadenoma. Another six-month follow-up targeted ultras ound is recommended to ensure longer stability. IMPRESSION: ACR-BI-RADS CATEGORY 3: PROBABLY BENIGN, ULTRASOUND ACR-BI-RADS CATEGORY 3: PROBABLY PORTER GN 1. Mammographically, a circumscribed oval mass is no longer evident in the lateral, middle one third of the left breast on the CC tomosynthesis images. Overall, there is no evidence of a suspicious ma mmographic mass, asymmetry, distortion or calcifications. 2. Decreased size of a benign mass in the 1:00 left breast on targeted ultrasound, which most likely represents a decreasing cyst, and also explains resolution of the mammographic finding. No further close follow-up is needed in the 1:00 left breast at this time. 3. Stable sonographic size and appearance of a benign-appearing solid versus cystic mass in the 10:0 0 left breast, 9 cm from the nipple, for which another six-month follow-up targeted left breast ultra sound is recommended to ensure longer stability. Annual bilateral mammography will also be due at at time.(08/07/2018) These results and recommendations were discussed with the patient at the time of the exam. Some breast cancers are not detected with mammography. A negative mammographic report should not aniya y biopsy if a clinically suggestive mass is present. Radha Hendrickson M.D. ay/:02/05/2018 12:19:17 [employer]liance [employer]: Michelle Durbin, [facility]; Radha Hendrickson [facility] letter sent: Follow Up Recommended 3 OVERALL STUDY BIRADS: 3 Probably benign
== END | disposition home or self-care (01) ==
LOC: C.MAMM 10:55
PROVIDERS: ATTEND Internal Medicine
DX: N63.21 Unspecified lump in the left breast, upper outer quadrant (principal); N63.22 Unspecified lump in the left breast, upper inner quadrant

== ENCOUNTER 2019-03-11 07:49 | Inpatient (IN) ==
--- NOTE | 2019-02-27 15:10 | PAT Medication Instructions ---
Medication Instructions Date of Service February 27, 2019 Home Medications Medication Instructions Recorded cyclobenzaprine 10 mg PO TID PRN #15 tab 01/28/19 calcium carbonate-mag hydroxid [Rolaids] 2 tab PO Q6H PRN lorazepam 0.5 mg PO Q6H PRN metoprolol tartrate 25 mg PO BID ondansetron 4 mg PO Q8H PRN ranitidine HCl 150 mg PO HS aspirin 81 mg tablet,delayed release 81 mg PO QAM cholecalciferol (vitamin D3) 5,000 unit PO QPM cyclobenzaprine 10 mg PO TID PRN phentermine 30 mg capsule 30 mg PO QAM pantoprazole 80 mg PO QAM acetaminophen [Tylenol Extra Strength] 1,250 mg PO BID PRN escitalopram oxalate 20 mg PO QPM fluticasone propionate [Flonase Allergy Relief] 2 spray INTRANASAL DAILY PRN metformin 500 mg PO QPM ASK your prescriber and surgeon aspirin 81 mg tablet,delayed release 81 mg PO QAM DO NOT take the morning of surgery calcium carbonate-mag hydroxid [Rolaids] 2 tab PO Q6H PRN cyclobenzaprine 10 mg PO TID PRN Take morning of surgery With a small sip of water, OTHERWISE NOTHING TO EAT OR DRINK AFTER MIDNIGHT: lorazepam 0.5 mg PO Q6H PRN (if needed) metoprolol tartrate 25 mg PO BID ondansetron 4 mg PO Q8H PRN (if needed) pantoprazole 80 mg PO QAM acetaminophen [Tylenol Extra Strength] 1,250 mg PO BID PRN (okay to take up to 4 hours prior to surgery if needed) fluticasone propionate [Flonase Allergy Relief] 2 spray INTRANASAL DAILY PRN (if needed) Take evening before surgery lorazepam 0.5 mg PO Q6H PRN (if needed) metoprolol tartrate 25 mg PO BID ondansetron 4 mg PO Q8H PRN (if needed) ranitidine HCl 150 mg PO HS cholecalciferol (vitamin D3) 5,000 unit PO QPM cyclobenzaprine 10 mg PO TID PRN (if needed) acetaminophen [Tylenol Extra Strength] 1,250 mg PO BID PRN (if needed) escitalopram oxalate 20 mg PO QPM metformin 500 mg PO QPM Other Notes *STOP taking phentermine 5 days prior to surgery* If you have any questions please call us at [phone] or [phone] or [phone] or [phone]
--- NOTE | 2019-02-27 16:00 | Anesthesiology Consultation ---
Date of Service February 27, 2019 Assessment & Plan (1) Encounter for pre-operative examination: - Check BSG, AM DOS - Phentermine for weight loss: patient advised to stop 5 days prior to surgery - ASA instructions per surgeon/presciber Chart Review Chart Review: Acceptable Risk for Surgery (pending preop testing (labs, EKG)) and Patient seen in Pre Admission Testing Teaching & Discussion Pre-Anesthesia Teaching/Discussion Notes: Instructed NPO after midnight before surgery,except medications with 15 cc of water. Medication instructions provided according to the PAT guidelines. History Surgery Operation Date: 03/11/19 11:30 Proposed Procedures p C4-C5, C5-C6 Anterior Cervical Discectomy and [place] with Iliac Crest Bone Graft - Julius Lee, Height/Weight Height: 5 ft 4 in Weight: 83.4 kg Allergies Allergy/AdvReac Type Severity Reaction Status Date / Time mold Allergy Severe SHORTNESS Verified 02/26/19 08:57 OF BREATH fentanyl Allergy Unknown SKIN RASH Verified 02/26/19 08:57 Iodinated Contrast- Oral and Allergy Unknown PALPITATIONS, Verified 02/26/19 08:57 IV Dye FLUSHING nicotine Allergy Unknown HEART Verified 02/26/19 08:57 RACES WITH PATCH oxycodone AdvReac Mild GI SYMPTOMS Verified 02/26/19 08:57 morphine AdvReac Unknown RASH Verified 02/26/19 08:57 Medications Home Medications Medication Instructions Recorded Confirmed Last Taken calcium carbonate-mag hydroxid 2 tab PO Q6H PRN 05/23/18 02/26/19 Unknown [Rolaids] lorazepam 0.5 mg PO Q6H PRN 05/23/18 02/26/19 Unknown metoprolol tartrate 25 mg PO BID 05/23/18 02/26/19 Unknown ondansetron 4 mg PO Q8H PRN 05/23/18 02/26/19 Unknown ranitidine HCl 150 mg PO HS 05/23/18 02/26/19 Unknown aspirin 81 mg tablet,delayed 81 mg PO QAM tab 01/28/19 02/26/19 Unknown release cholecalciferol (vitamin D3) 5,000 unit PO QPM 01/28/19 02/26/19 Unknown cyclobenzaprine 10 mg PO TID PRN #15 tab 01/28/19 02/26/19 Unknown phentermine 30 mg capsule 30 mg PO QAM #30 cap 01/28/19 02/26/19 Unknown pantoprazole 80 mg PO QAM 02/22/19 02/26/19 Unknown acetaminophen [Tylenol Extra 1,250 mg PO BID PRN 02/26/19 02/26/19 Unknown Strength] escitalopram oxalate 20 mg PO QPM 02/26/19 02/26/19 Unknown fluticasone propionate [Flonase 2 spray INTRANASAL DAILY PRN 02/26/19 02/26/19 Unknown Allergy Relief] metformin 500 mg PO QPM 02/26/19 02/26/19 Unknown Past Medical History Medical History Premature atrial complexes Acid reflux controlled Anxiety Diabetes mellitus, type 2 NIDDM Exercise / Class Metabolic Activity II 4-5 Yardwork/Stairs/Walk up hill Past Family History Family History Uncle Anemia Kidney stones Mother Asthma Breast cancer Hypertension Father Diabetes Atrial fibrillation Grandmother Diabetes Myocardial infarction Grandfather Myocardial infarction Heart disease Stroke Sister Obesity Thyroid disease Past Surgical History Surgical History [place] teeth extracted H/O tubal ligation H/O partial nephrectomy RIGHT (2014) FOR RENAL MASS History of reversal of tubal ligation History of colonoscopy History of dilatation and curettage History of esophagogastroduodenoscopy (EGD) *Patient reports that after partial nephrectomy she had chronic right arm pain which she feels was secondary to positioning*- patient requesting caution with positioning. Past Anesthesia History No Hx of Anesthesia Complications and No Family Hx of Anesthesia Complications History of PONV No Hx of PONV and No Hx of Motion Sickness STOP BANG Total 1 Social History Smoking Status: Current every day smoker tobacco type: cigarettes Smoking cigarettes per day: 1 PPD X 20+ YRS Do You Dip or Chew Tobacco: No Hx Alcohol Use: Yes Alcohol type: beer and hard liquor alcohol intake frequency: a few times a month Hx Substance Use: No Review of Systems Right hand, feet neuropathy, radiculopathy. Patient denies chest pain, shortness of breath, dyspnea on exertion, cough, wheezing, palpitations. Physical Exam Vital Signs VITALS BP 101/66 P 67 TEMP 97.8 SP02 96%RA RESP 16 PHYSICAL Full neck and c-spine range of motion. Full TMJ range of motion. TMD 3 finger breaths Mallampati Score 1 Dentition: missing molars Lungs: clear throughout to auscultation Cardiac: regular rate and rhythm, no murmurs noted Spine: normal Carotid arteries: negative bruit Extremities: no edema Testing Laboratory Results 02/22/19 WBC 9.54 H/H 13.8/41.0 PLATELETS 224 SODIUM 137 POTASSIUM 3.8 CHLORIDE 104 CO2 28 BUN 17 CREATININE 0.89 GLUCOSE 105 UA negative Chest X-Ray Date: 02/22/19 Findings: + NAD Stress Test Date: 01/22/14 Type: exercise Negative exercise stress EKG/ECHO for ischemia at 91% MPHR. Chest pain prior to exercise. No significant valvular disease. 13 METS.
[2019-02-27 16:36] LABS: Partial Thromboplastin Time 27.9 Seconds (21.0-31.0); Prothrombin Time 10.3 Seconds (9.0-12.0)
[2019-02-28 06:34] LABS: Estimated Average Glucose 128 mg/dl; Hemoglobin A1C 6.1 % (4.5-5.6)
--- NOTE | 2019-03-08 17:57 | History and Physical Report ---
DATE OF ADMISSION: 03/11/2019 HISTORY OF PRESENT ILLNESS: She has neck pain, arm pain, trapezius pain and upper and lower extremity difficulty. She has cord compression cervical spine, C4-C5 and C5-C6 cervical spine. PAST MEDICAL HISTORY: Positive for diabetes, carcinoma, rheumatoid arthritis, anxiety. PAST SURGICAL HISTORY: [place] teeth, reversal tubal ligation, kidney carcinoma. ALLERGIES: Negative. FAMILY HISTORY: Heart disease. SOCIAL HISTORY: She is . Moderate tobacco use. Moderate alcohol use. Active lifestyle. REVIEW OF SYSTEMS: Denies any fevers, sweats, chills. Admits to some sinus difficulties. No chest pain, heart problems, palpitations. No asthma, wheezing, shortness of breath. Denies bowel and bladder dysfunction. She admits to numbness and tingling, weakness of the extremities. MEDICATIONS: Include vitamin D, lorazepam, metformin. PHYSICAL EXAMINATION: GENERAL: She is 5 feet 4 inches, 176. She is in moderate distress. VITAL SIGNS: Blood pressure 130/80, pulse 80. HEENT: Normal. CARDIAC: Normal S1, S2. No S3. LUNGS: Clear to auscultation. No rales, rhonchi, wheezing. ABDOMEN: Soft, nontender. MUSCULOSKELETAL: She has pain with flexion, extension of the cervical spine, Spurling maneuver and Lhermitte sign. She has numbness and tingling, weakness and signs of upper motor neuron issues. Images demonstrate cord compression C4-C6 cervical spine. PLAN: Includes an anterior cervical discectomy and fusion C4-C6 cervical spine with iliac crest bone graft. ANDREWS
[~2019-03-11 07:49] MED LIST changes: -CAL1CHW4 PO; +CEFAZOLIN 2000MG 2,000 MG/15 ML SYR IV SCH; -CHOL1000 PO; -CYCL5TAB PO; -ESCI10TA17 PO; -GLC500 PO; -LORA0.5T12 PO; +LR 15ML/HR IV SCH; -METO25TA56 PO; -ONDA4TAB46 PO; -PANT40TA2 PO; -RANI150T2 PO; +SODIUM CHLORIDE 0.9% 1,000 ML IV SCH
[2019-03-11] MEDS ORDERED: LIDOCAINE HCL 2% 2 ML VIAL/AMP(20MG/ML) INFIL ONE (08:08)
[2019-03-11] MEDS ORDERED: LARYING-O-JET KIT (LTA) ONE (08:08)
[2019-03-11] MEDS ORDERED: ROCURONIUM BROMIDE 10 MG/ML 5 ML VIAL ONE (08:08)
[2019-03-11] MEDS ORDERED: ePHEDrine sulfate 50 MG/ML SYR ONE (08:08)
[2019-03-11] MEDS ORDERED: ONDANSETRON INJ 2 MG/ML 2 ML VIAL ONE (08:08)
[2019-03-11] MEDS ORDERED: PROPOFOL IV EMULSION 10 MG/ML 20 ML VIAL IV ONE (08:08)
[2019-03-11] MEDS ORDERED: DEXAMETHASONE SOD INJ 4 MG/ML VIAL ONE (08:08)
[2019-03-11] MEDS ORDERED: MIDAZOLAM HCL 1 MG/ML 2ML VIAL ONE (08:08)
[2019-03-11] MEDS ORDERED: NEOSTIGMINE METHYLSULFATE 5 MG/5 ML SYR ONE (08:08)
[2019-03-11] MEDS ORDERED: GLYCOPYRROLATE 0.2 MG/ML VIAL ONE (08:08)
[2019-03-11] MEDS ORDERED: fentaNYL citrate 100 MCG/2 ML VIAL ONE (08:09)
[2019-03-11] MEDS ORDERED: ePHEDrine sulfate 50 MG/ML AMP IV PRN (09:06)
[2019-03-11] MEDS ORDERED: ATROPINE SULFATE 0.1 MG/ML 10ML SYR IV PRN (09:06)
[2019-03-11] MEDS ORDERED: ONDANSETRON INJ 2 MG/ML 2 ML VIAL IV PRN (09:06)
[2019-03-11] MEDS ORDERED: THROMBIN FOR SOLN 20000 UNIT KIT ONE (09:14)
[2019-03-11] MEDS ORDERED: GELATIN SPONGE SZ 100 ONE (09:14)
[2019-03-11] MEDS ORDERED: BUPIVACAINE/EPINEPHRINE 0.5% MPF 1:200,000 30 ML VIAL ONE ×2 (09:14→09:25)
[2019-03-11] MEDS ORDERED: BACITRACIN INJ 50,000 UNIT VIAL ONE (09:14)
--- NOTE | 2019-03-11 09:22 | History & Physical Bridge Note ---
Date of Service March 11, 2019 History & Physical Bridge Note I have examined the patient, reviewed the History & Physical and in the interval since the performance of the History & Physical I have noted the following changes of clinical significance: no changes noted
[2019-03-11] MEDS ORDERED: HYDROmorphone INJ 2 MG/ML SYR/VIAL ONE (10:20)
--- NOTE | 2019-03-11 11:27 | Post Operative Brief Note ---
PG Immediate Post Op with CF Date of Surgery March 11, 2019 Pre & Post Diagnosis Operation Date: 03/11/19 09:00 Pre-Op Diagnosis: Cord Compression Post-Op Diagnosis: Cord Compression Procedure Operation Date: 03/11/19 09:00 Actual Procedures p C4-C5, C5-C6 Anterior Cervical Discectomy and Fusion.(Not Applicable) - Julius Lee DO Surgeon Juan David Grewal, ROSE Production Artist karen Estimated Blood Loss 10 Findings Consistent with Post-Op Diagnosis Specimens Specimen Description: NONE PER SURGEON Drains [place] Drain
--- NOTE | 2019-03-11 11:38 | Fluoroscopy Report ---
FL spine 1V any level CLINICAL HISTORY: C4-C5, C5-C6 CERVICAL DISCECTOMY AND FUSION COMPARISON STUDY: Cervical spine MRI February 20, 2019. FLUOROSCOPY TIME: 4 seconds. FLUOROSCOPIC IMAGES: 2. FINDINGS: These images demonstrate C4-C5 and C5-C6 anterior discectomies and fusion. Alignment is vernon tomic. Hardware is intact. IMPRESSION: Expected findings following C4-C5 and C5-C6 anterior discectomies and fusion. Electronically signed by: Ricky Mendoza M.D. 03/11/2019 11:37 AM
[2019-03-11] MEDS ORDERED: HYDROmorphone INJ 0.5 MG/0.5 ML SYR ONE (12:00)
[2019-03-11] MEDS: HYDROmorphone INJ 1 MG/ML SYRINGE IV PRN ×2 (12:00→12:05)
--- NOTE | 2019-03-11 12:08 | Operative Report ---
DATE OF OPERATION: 03/11/2019 PREOPERATIVE DIAGNOSIS: Cord compression, cervical spine, C4-C5 and C5-C6. POSTOPERATIVE DIAGNOSIS: Cord compression, cervical spine, C4-C5 and C5-C6. PROCEDURE: Anterior cervical discectomy and fusion C4-C5 and C5-C6. SURGEON: Julius Lee DO ACCOUNTING SYSTEM EXPERT: Juan David Grewal PA-C. DESCRIPTION OF PROCEDURE: The patient was positively identified in the preop holding area, brought back to the operating room. A formal bridge note provided. A general intubated anesthetic provided to the patient, placed on the [place] table. Scrubbed, prepped, draped sterile. Antibiotics administered along with a [place] catheter. We made a transverse skin incision over the C5 area of the cervical spine. We dissected the soft tissue in the same plane with a fairly easy dissection. We came down on the C5-C6 interspace with relative ease. We marked this with a spinal needle. We did a formal discectomy first with a large rongeur to pull off due to bite off the extra bone. We incised the disc with 15 scalpel blade with curettes. We did a formal discectomy. I used curettes all the way back and through the posterior longitudinal ligament. I took off a significant amount of osteophyte formation. I think was part of her cord compression. We did the same thing at the L4-L5 interval of the cervical spine. I weighed her pain along with obesity and I felt it was prudent not to go to the left iliac crest. I was able to harvest some local autograft from the cervical spine vertebral body extra osteophyte formations and I think this did well in the devices. After the discectomies were prepared, I went with the [employer] called Coalition 6 mm device with a wide foot plate. This was packed with a combination of autograft and demineralized bone matrix. The fit was near anatomic. The devices were secured. We irrigated and closed over a [place] drain in layers. Sterile dressings applied. The patient returned to PACU. BLOOD LOSS: 10 mL. SURGEON: Julius Lee DO ACCOUNTING SYSTEM EXPERT: Juan David Grewal PA-C. COMPLICATIONS: Zero. IMPLANTS USED: [employer]. Bone graft used was demineralized bone matrix along with autograft. Sterile dressings applied. Collar applied. The patient extubated to PACU stable. I attest to the content of the Intraoperative Record and any orders documented therein. Any exception s are noted below.
--- NOTE | 2019-03-11 12:25 | Anesthesiology Progress Note ---
Date of Service March 11, 2019 Anesthesia Post Procedure Vital Signs Vital Signs: Temp Pulse Pulse Resp BP Pulse Ox 03/11/19 12:15 70 16 124/79 94 03/11/19 12:05 63 16 139/87 94 03/11/19 11:55 76 16 160/106 H 97 03/11/19 11:45 71 16 159/100 H 96 03/11/19 11:36 96.8 F L 86 16 137/90 99 03/11/19 08:13 97.7 F 63 20 112/71 97 Pain Intensity Neck: Pain Intensity: 5 Transfer of Care Handoff Completed per policy Notes Mental Status: alert / awake / arousable and participated in evaluation Patient Amnestic to Procedure: Yes Nausea / Vomiting: adequately controlled Pain: adequately controlled Airway Patency, RR, SpO2: stable & adequate BP & HR: stable & adequate Hydration State: stable & adequate Anesthetic Complications: no major complications apparent and Pt Satisfied with anesthetic care
[2019-03-11] MEDS ORDERED: FLUTICASONE PROPIONATE NA SPR 16 GM BTL PRN (13:04)
[2019-03-11] MEDS ORDERED: ACETAMINOPHEN 1,000 MG/100 ML VIAL IV PRN (13:04)
[2019-03-11] MEDS ORDERED: NALOXONE HCL 0.4 MG/1 ML VIAL/CARP IV PRN (13:04)
[2019-03-11] MEDS ORDERED: HYDROCODONE/ACETAMOPHEN 5/325MG TAB PO PRN (13:04)
[2019-03-11] MEDS ORDERED: DEXAMETHASONE SOD PHOSPHATE 8 MG in SYRINGE 0 ML IV PRN (13:04)
[2019-03-11] MEDS ORDERED: RACEPINEPHRINE 2.25% NEBU SOLN 0.5 ML VIAL INH PRN (13:04)
[2019-03-11] MEDS ORDERED: ONDANSETRON 4 MG OD TAB PO PRN (13:39)
[2019-03-11] MEDS: SODIUM CHLORIDE 0.9% 1000ML 1,000 ML IV SCH (13:47)
[2019-03-11] MEDS: LORazepam 0.5 MG/1 ML VIAL IV PRN (13:47)
[2019-03-11] MEDS ORDERED: METFORMIN HCL 500 MG TAB PO SCH ×2 (17:00→21:00)
[2019-03-11] MEDS: ONDANSETRON INJ 2 MG/ML 2 ML VIAL IV PRN ×2 (17:05→21:17)
[2019-03-11] MEDS: HYDROmorphone INJ 0.5 MG/0.5 ML SYR IV PRN (17:06)
[2019-03-11] MEDS: CEFAZOLIN 2000MG 2,000 MG/15 ML SYR IV SCH (17:44)
[2019-03-11] MEDS ORDERED: ESCITALOPRAM OXALATE 20 MG TAB PO SCH (21:00)
[2019-03-11] MEDS ORDERED: METOCLOPRAMIDE HCL INJ 5 MG/ML 2 ML VIAL IV PRN (21:35)
[2019-03-11] MEDS: METOPROLOL TARTRATE 25 MG TAB PO SCH (22:29)
[2019-03-12] MEDS: LORazepam 0.5 MG/1 ML VIAL IV PRN ×2 (00:16→08:42)
[2019-03-12] MEDS: SODIUM CHLORIDE 0.9% 1000ML 1,000 ML IV SCH (01:08)
[2019-03-12] MEDS: HYDROmorphone INJ 0.5 MG/0.5 ML SYR IV PRN ×2 (03:09→06:45)
[2019-03-12] MEDS: ONDANSETRON INJ 2 MG/ML 2 ML VIAL IV PRN ×2 (03:09→03:50)
[2019-03-12] MEDS: CEFAZOLIN 2000MG 2,000 MG/15 ML SYR IV SCH ×2 (03:09→09:53)
[2019-03-12] MEDS ORDERED: KETOROLAC TROMETHAMINE 10 MG TABLET PO PRN (07:35)
--- NOTE | 2019-03-12 07:40 | Anesthesiology Progress Note ---
Date of Service March 12, 2019 Anesthesia Post Procedure Vital Signs Vital Signs: Temp Pulse Pulse Pulse Resp BP Pulse Ox 03/12/19 07:35 79 16 94 03/12/19 06:50 36.8 C 83 16 148/95 H 97 03/12/19 04:50 36.7 C 70 16 136/91 98 03/12/19 02:50 36.8 C 87 16 145/86 H 97 03/12/19 02:38 98 H 18 98 03/12/19 00:50 36.8 C 76 16 126/85 99 03/11/19 23:15 86 16 99 03/11/19 22:50 36.4 C L 76 16 142/92 H 98 03/11/19 21:04 36.4 C L 74 16 141/98 H 98 03/11/19 19:25 67 16 99 03/11/19 18:50 36.5 C 76 16 132/72 97 03/11/19 17:11 36.6 C 81 16 150/90 H 98 03/11/19 16:20 36.4 C L 76 18 150/88 H 98 03/11/19 15:32 97 H 17 96 03/11/19 14:49 95 H 18 112/77 96 03/11/19 13:49 67 16 114/68 96 03/11/19 13:19 70 15 134/83 97 03/11/19 12:51 68 16 96 03/11/19 12:35 87 16 129/84 95 03/11/19 12:25 36.4 C L 70 16 126/87 95 03/11/19 12:15 70 16 124/79 94 03/11/19 12:05 63 16 139/87 94 03/11/19 11:55 76 16 160/106 H 97 03/11/19 11:45 71 16 159/100 H 96 03/11/19 11:36 36.0 C L 86 16 137/90 99 03/11/19 08:13 36.5 C 63 20 112/71 97 Pain Intensity Neck: Pain Intensity: 8 Notes Mental Status: alert / awake / arousable and participated in evaluation Patient Amnestic to Procedure: Yes Nausea / Vomiting: adequately controlled Pain: adequately controlled and improving with treatment Airway Patency, RR, SpO2: stable & adequate BP & HR: stable & adequate Hydration State: stable & adequate Anesthetic Complications: no major complications apparent
[2019-03-12] MEDS: METOPROLOL TARTRATE 25 MG TAB PO SCH (08:42)
[2019-03-12] MEDS ORDERED: ASPIRIN 81 MG ECTAB PO SCH (09:00)
[2019-03-12] MEDS ORDERED: PANTOprazole 40 MG TAB PO SCH (09:00)
--- NOTE | 2019-03-12 22:29 | Discharge Summary ---
HOSPITAL COURSE: Bruna has had uneventful cervical spine surgery. She had 2-level ACDF of the cervical spine. She had bone grafting and implants placed. She has done superb. She was seen on rounds in the evening, seen on rounds this morning on 03/12/2019. She is improved, stable, minimal difficulties. No chest pain, shortness of breath. No fevers, sweats, chills, mild swallowing impairment. Images not needed. Vital signs stable. ASSESSMENT: Uneventful postoperative course from an anterior cervical discectomy and fusion, 2-level, of spine. PLAN: She was given instructions and precautions in the office and here. We will change her dressing. She has a followup appointment and Toradol was offered for pain and she wants to avoid narcotics.
== END 2019-03-12 13:38 | disposition home or self-care (01) | DRG 30 ==
LOC: ASU 07:49 → 3E 11:40

== ENCOUNTER 2020-02-28 06:11 | Inpatient (IN) ==
[~2020-02-28 06:11] MED LIST changes: -CEFAZOLIN 2000MG 2,000 MG/15 ML SYR IV SCH; +CITRIC ACID/SODIUM CITRATE 15 ML UDC PO SCH; -LR 15ML/HR IV SCH; -SODIUM CHLORIDE 0.9% 1,000 ML IV SCH
[2020-02-28] MEDS ORDERED: LACTATED RINGER'S 1,000 ML IV SCH ×2 (06:15→09:14)
--- NOTE | 2020-02-28 06:22 | History & Physical Report ---
Date of Service February 28, 2020 Assessment & Plan (1) History of injury: Cervix is 3 cm she is an active labor 100% effaced. Patient has not had a COVID test yet we will do a rapid test per hospital policy I asked the patient if she wished to attempt to labor the patient adamantly says no due to the outcome in her last she wishes a section and tubal ligation I discussed that we would respect her wishes discussed the risks of section including bleeding injury to bowel bladder ureter vessels deep vein thrombosis pulmonary embolus potential harm to the baby discussed the irreversibility of tubals in general although she has had a tubal and reversal in the past We will make arrangements for section and bilateral tubal ligation consent signed risk discussed patient declines option of labor Admission and Anticipated Discharge Date Admission Date: February 28, 2020 History of Present Illness Primary Care Provider: Viktoria Ballesteros MD Patient known to our practice is a type II diabetic on insulin smoker AMA prior vaginal but is she had a wishing a section there were complications at her last vaginal and she wishes to proceed with section if she is an active labor she is in fact scheduled for repeat section March 06 tonight she presented in active labor alison every 2 to 3 minutes rating the contractions 10 out of 10 she is not leaking fluid Allergies Allergy/AdvReac Type Severity Reaction Status Date / Time mold Allergy Severe SHORTNESS Verified 02/24/20 17:51 OF BREATH fentanyl Allergy Unknown SKIN RASH Verified 02/24/20 17:51 Iodinated Contrast Media Allergy Unknown PALPITATIONS, Verified 02/24/20 17:51 FLUSHING nicotine Allergy Unknown HEART Verified 02/24/20 17:51 RACES WITH PATCH oxycodone AdvReac Mild GI SYMPTOMS Verified 02/24/20 17:51 morphine AdvReac Unknown RASH Verified 02/24/20 17:51 Home Medications Home Medications Medication Instructions Recorded Confirmed Type acetaminophen [Tylenol Extra 1,250 mg PO BID PRN 02/26/19 02/24/20 History Strength] prenat.vits,dorcas,[id number]-[id number] 1 tab PO DAILY 08/02/19 02/24/20 History acetone (urine) test #50 ea 08/20/19 02/24/20 Rx lancets #120 ea 08/20/19 02/24/20 Rx levothyroxine 75 mcg tablet 75 mcg PO DAILY #90 tab 09/09/19 02/24/20 Rx pen needle, diabetic 32 gauge x #100 ea 09/13/19 02/24/20 Rx 5/32" Accu-Chek Dena Plus test strp #200 ea NS 09/17/19 02/24/20 Rx cholecalciferol (vitamin D3) 125 5,000 unit PO QPM #90 tab 09/17/19 02/24/20 Rx mcg (5,000 unit) tablet insulin syringe-needle U-100 0.5 #100 ea 09/19/19 02/24/20 Rx mL 31 gauge x 5/16" blood-glucose meter #1 ea 10/18/19 02/24/20 Rx insulin NPH isoph U-100 human 100 22 units SQ QPM ml 12/05/19 02/24/20 History unit/mL subcutaneous suspension insulin regular human 100 unit/mL 12 units SQ DAILY ml 12/05/19 02/24/20 History injection solution escitalopram oxalate 20 mg tablet 20 mg PO QPM #90 tab 01/01/20 02/24/20 Rx breast pump #1 ea 01/13/20 02/24/20 Rx pantoprazole 40 mg tablet,delayed See Rx Instructions .ROUTE 01/22/20 02/24/20 Rx release .COMPLEX #60 tab metoprolol tartrate 25 mg tablet 25 mg PO BID #60 tab 01/27/20 02/24/20 Rx aspirin 81 mg tablet,delayed 81 mg PO DAILY tab 02/24/20 02/24/20 History release Patient History Medical History Abnormal mammography Acid reflux controlled Adnexal cyst Anxiety Diabetes mellitus, type 2 NIDDM Elderly multigravida History of chicken pox Irregular uterine contractions Premature atrial complexes Premature uterine contractions Surgical History H/O partial nephrectomy RIGHT (2014) FOR RENAL MASS H/O tubal ligation subsequent reversal History of colonoscopy History of dilatation and curettage History of esophagogastroduodenoscopy (EGD) History of reversal of tubal ligation Previous delivery affecting , antepartum Renal mass CANCER RIGHT-PARTIAL [id number] CHEMO/NO RADIATION F/U DR LOVETT [place] teeth extracted Family History Uncle Anemia Kidney stones Mother Asthma Breast cancer Hypertension Father Diabetes Atrial fibrillation Grandmother Diabetes Myocardial infarction Grandfather Myocardial infarction Heart disease Stroke Sister Obesity Thyroid disease Denies family history of Colon cancer Ovarian cancer Prostate cancer Colorectal cancer Social History Smoking Status: Current every day smoker packs per day: 0.5; Cigarettes Per Day: 10; Second Hand Exposure: Yes; Hx Alcohol Use: No Hx Substance Use: No Preferred Language: Croatian Communication Ability: Effective Visual Impairment: No Limitations Warp Knitter Helper Required: No Beliefs That Will Affect Care: None marital status: marital status details: Ortiz Cabrera (39) [phone] Current Living Situation: Spouse and Family Current Living Situation Comment: lives at home with , son 21, and pets current occupational status: disabled Feels Safe at Home: Yes Safety Concerns: Feels Safe At This Time Childhood Exposure to Second-Hand Smoke: Yes caffeine: No Physical Activity Frequency: 5-6 Times per Week Seatbelt Use: always Sunscreen Use: Yes Physical Exam Constitutional: WD/WN, vitals as above Respiratory: normal respiratory effort, lungs clear to auscultation Cardiovascular: RRR, no murmur, no edema Gastrointestinal (Abdomen): normal bowel sounds, soft, nontender, no hepatosplenomegaly Genitourinary: Manual OB Exam: + cervical dilation 3 cm, + cervical effacement 100% and + station -2 Results & Data ([facility]) Vital Signs (Past 12 Hours) Vital Signs Temp Pulse Resp BP 02/28/20 06:07 98.4 F 61 18 129/96 Coding Level of Care Code None Diagnoses History of injury Z87.828
[2020-02-28] MEDS ORDERED: CEFAZOLIN 2000MG 2,000 MG/15 ML SYR IV SCH (06:30)
[2020-02-28] MEDS ORDERED: OXYTOCIN 10 UNITS/ML VIAL ONE ×2 (06:42→07:45)
[2020-02-28] MEDS ORDERED: MoRPHine SULFATE PF 1 MG/ML 10 ML AMP/VIAL ONE (06:51)
[2020-02-28] MEDS ORDERED: fentaNYL citrate 100 MCG/2 ML VIAL ONE (06:52)
--- NOTE | 2020-02-28 06:54 | Anesthesiology Consultation ---
Date of Service February 28, 2020 Assessment & Plan ASA [id number] Proposed Anesthesia Anesthesia Type: Spinal Risk / Benefits Reviewed With: PT / POA / Parent / Guardian, Accepts Plan and Informed Consent Obtained History Surgery Operation Date: 02/28/20 06:30 Proposed Procedures p Section in LD - J. Franc Montes MD, FACOG Height/Weight Height: 5 ft 4 in Weight: 97.522 kg Allergies Allergy/AdvReac Type Severity Reaction Status Date / Time mold Allergy Severe SHORTNESS Verified 02/24/20 17:51 OF BREATH fentanyl Allergy Unknown SKIN RASH Verified 02/24/20 17:51 Iodinated Contrast Media Allergy Unknown PALPITATIONS, Verified 02/24/20 17:51 FLUSHING nicotine Allergy Unknown HEART Verified 02/24/20 17:51 RACES WITH PATCH oxycodone AdvReac Mild GI SYMPTOMS Verified 02/24/20 17:51 morphine AdvReac Unknown RASH Verified 02/24/20 17:51 Medications Home Medications Medication Instructions Recorded Confirmed Last Taken acetaminophen [Tylenol Extra 1,250 mg PO BID PRN 02/26/19 02/28/20 02/20/20 Strength] prenat.vits,dorcas,[id number]-[id number] 1 tab PO DAILY 08/02/19 02/24/20 Unknown acetone (urine) test #50 ea 08/20/19 02/24/20 Unknown lancets #120 ea 08/20/19 02/24/20 Unknown levothyroxine 75 mcg tablet 75 mcg PO DAILY #90 tab 09/09/19 02/28/20 02/27/20 pen needle, diabetic 32 gauge x #100 ea 09/13/19 02/24/20 Unknown 5/32" Accu-Chek Dena Plus test strp #200 ea NS 09/17/19 02/24/20 Unknown cholecalciferol (vitamin D3) 125 5,000 unit PO QPM #90 tab 09/17/19 02/28/20 02/27/20 mcg (5,000 unit) tablet insulin syringe-needle U-100 0.5 #100 ea 09/19/19 02/24/20 Unknown mL 31 gauge x 5/16" blood-glucose meter #1 ea 10/18/19 02/24/20 Unknown insulin NPH isoph U-100 human 100 22 units SQ QPM ml 12/05/19 02/28/2002/26/20 unit/mL subcutaneous suspension insulin regular human 100 unit/mL 12 units SQ DAILY ml 12/05/19 02/28/20 02/27/20 injection solution escitalopram oxalate 20 mg tablet 20 mg PO QPM #90 tab 01/01/20 02/28/20 02/27/20 breast pump #1 ea 01/13/20 02/24/20 Unknown pantoprazole 40 mg tablet,delayed See Rx Instructions .ROUTE 01/22/20 02/24/20 Unknown release .COMPLEX #60 tab metoprolol tartrate 25 mg tablet 25 mg PO BID #60 tab 01/27/20 02/28/20 02/27/20 aspirin 81 mg tablet,delayed 81 mg PO DAILY tab 02/24/20 02/28/20 02/26/20 release Active Medications Generic Name Dose Route Start Last Admin Trade Name Freq PRN Reason Stop Dose Admin Lactated Ringer's 1,000 mls @ 999 mls/hr 02/28/20 06:15 02/28/20 06:34 Lr IV 02/28/20 07:15 999 mls/hr .Q1H1M ONEAL Administration NPO Date Last Intake of Fluids: 02/28/20 Time Last Intake of Fluids: 04:00 Date Last Intake of Solids: 02/27/20 Time Last Intake of Solids: 21:30 Past Medical History Medical History Abnormal mammography Acid reflux controlled Adnexal cyst Anxiety Diabetes mellitus, type 2 NIDDM Elderly multigravida History of chicken pox Irregular uterine contractions Premature atrial complexes Premature uterine contractions Exercise / Class Metabolic Activity II 4-5 Yardwork/Stairs/Walk up hill Past Family History Family History Uncle Anemia Kidney stones Mother Asthma Breast cancer Hypertension Father Diabetes Atrial fibrillation Grandmother Diabetes Myocardial infarction Grandfather Myocardial infarction Heart disease Stroke Sister Obesity Thyroid disease Denies family history of Colon cancer Ovarian cancer Prostate cancer Colorectal cancer Past Surgical History Surgical History H/O partial nephrectomy RIGHT (2014) FOR RENAL MASS H/O tubal ligation subsequent reversal History of colonoscopy History of dilatation and curettage History of esophagogastroduodenoscopy (EGD) History of reversal of tubal ligation Previous delivery affecting , antepartum Renal mass CANCER RIGHT-PARTIAL [id number] CHEMO/NO RADIATION F/U DR LOVETT [place] teeth extracted Past Anesthesia History No Hx of Anesthesia Complications and No Family Hx of Anesthesia Complications History of PONV No Hx of PONV and No Hx of Motion Sickness Social History Smoking Status: Current every day smoker tobacco type: cigarettes Smoking cigarettes per day: 10 Hx Alcohol Use: No Alcohol type: beer and hard liquor alcohol intake frequency: a few times a month Hx Substance Use: No Review of Systems denies fever/cough/ colds/ chest pain/ SOB/ NAVNEET Constitutional: no fever and no chills Respiratory: no cough and no dyspnea denies NAVNEET Cardiovascular: no chest pain and no dyspnea on exertion Physical Exam Vital Signs Last Vital Signs Temp 36.9 C 02/28/20 06:09 Pulse 61 02/28/20 06:09 Resp 18 02/28/20 06:09 BP 129/96 02/28/20 06:09 ENMT Mouth: no TMJ abnormality and no dentition abnormality Thyromental Distance: > or= 3.5 Finger Breadths Mallampati Class: II Neck neck extension not limited Respiratory normal respiratory effort; no respiratory distress Auscultation: lungs clear to auscultation bilaterally Cardiovascular Rate/Rhythm: regular rate and regular rhythm Neurologic moves all extremities Psychiatric Orientation: alert and oriented x 3
[2020-02-28 07:00] LABS: Basophils # (auto) 0.01 K/uL (0-0.2); Basophils % (auto) 0.1 %; Eosinophils # (auto) 0.11 K/uL (0-0.5); Hematocrit (blood only) 37.5 % (37-47); Hemoglobin 12.8 g/dL (12.0-16.0); Immature Granulocytes # (auto) 0.02 K/uL (0.00-0.02); Immature Granulocytes % (auto) 0.2 %; Lymphocytes % (auto) 22.5 %; Mean Corpuscular Hemoglobin 30.8 pg (25-34); Mean Corpuscular Volume 90.4 fL (80-100); Mean Platelet Volume 11.3 fL (7.4-10.4); Monocytes # (auto) 0.68 K/uL (0.11-0.59); Monocytes % (auto) 6.1 %; Neutrophils # (auto) 7.77 K/uL (1.4-6.5); Neutrophils % (auto) 70.1 %; Platelet Count 202 K/uL (130-400); RDW Coefficient of Variation 13.4 % (11.5-14.5); RDW Standard Deviation 43.8 fL (36.4-46.3); Red Blood Count 4.15 M/uL (4.2-5.4); White Blood Count 11.09 K/uL (4.8-10.8)
[2020-02-28 07:07] LABS: Mean Corpuscular Hgb Conc 34.1 g/dL (32-36)
[2020-02-28 08:19] LABS: Base Excess Cord Arterial Bld -1.6 mEq/L (-9-1.8); CO2 Cord Arterial Blood 62 mmHg (39.1-73.5); HCO3 Cord Arterial Blood 27 mmol/L (19.7-28.5); pH Cord Arterial Blood 7.26 (7.1-7.38)
[2020-02-28 08:23] LABS: Base Excess Cord Venous Blood -2.1 mEq/L (-7.7-1.9); Cord Venous Blood HCO3 25 mmol/L (18.4-26.8); Cord Venous Blood PCO2 49 mmHg (30.4-57.2); Cord Venous Blood PO2 20 mmHg (14.1-43.3); Cord Venous Blood pH 7.32 (7.20-7.44)
--- NOTE | 2020-02-28 08:27 | Operative Report ---
PG Post Operative Report Pre & Post Diagnosis Request permanent sterilization Operation Date: 02/28/20 06:30 Pre-Op Diagnosis: Maternal Request for Caesarean Section; Active labor Post-Op Diagnosis: Same; Delivery of a live male child at 0741 I identified the patient and participated in the time-out.: Yes Procedure Operation Date: 02/28/20 06:30 Actual Procedures p Section in LD - Sammy Montes MD, FACOG And bilateral tubal ligation Surgeon Sammy Montes MD, FACOG Personal Investment Adviser Dr. Paul Estimated Blood Loss 600 Findings Consistent with Post-Op Diagnosis Specimens Blood gases cord blood portion of left fallopian tube Description of Procedure Regional anesthetic was given by anesthesia patient had a [place] catheter inserted by nursing patient was prepped and draped in supine position with a leftward tilt preoperative antibiotics were given timeout performed Pickups with teeth were used to test the skin site and it was found adequate for incision scalpel used to make a Pfannenstiel incision cutting down through subcutaneous fat through the fascia fascia was then dissected laterally with the curved Butcher's fascia was released superiorly and inferiorly from the rectus muscles with the curved Butcher scissors, rectus muscle split peritoneal cavity entered in a superior location. Opening enlarged to allow exposure bladder retractor placed Metzenbaums used to dissect away the bladder flap low segment transverse incision made on the uterus with scalpel entry was done bluntly with the liquid natural gas plant operator's finger hysterotomy incision extended with the liquid natural gas plant operator's finger in the usual fashion baby was delivered then by flexion of the head and pressure from the speech language pathologist assistant on the abdomen mouth and then nares were suctioned baby was then delivered fully without difficulty without excessive force live vigorous cord clamped and cut cord gases obtained cord blood obtained placenta removed manually within ensured all placenta removed with a moist lap sponge uterus exteriorized IV Pitocin had been started by anesthesia and uterine tone improved. The uterus was closed in 2 layers first layer and 0 Monocryl running locked second layer 0 Monocryl nonlocked after generous irrigation and suction of the cul-de-sac and bladder flap regions hemostasis was excellent. Tubal ligation was then performed should be noted that the right fallopian tube was abnormal patient had a previous tubal ligation and reversal patient had informed me that only one tube was functional I suspect the right was not I was able to attempt to find the right fimbriated end placed a 0 chromic suture around the fimbriated end of the right fallopian tube this was then tied a second tie was then performed as well I did not remove any right fallopian tube as it was minimal tube to be removed On the left side I was able to grasp an area of isthmic fallopian tube and perform modified Brainard grabbing with a Alexi and tying 2 times with 0 chromic and cutting a small section of left fallopian tube. Hemostasis was excellent on repeat placement of the uterus back in the peritoneal cavity it should be noted that the uterus and fallopian tube sites were hemostatic uterus was placed back in the peritoneal cavity and hemostasis was excellent rectus muscles were inspected and found to be dry fascia closed with 0 Vicryl subcutaneous fat closed with 3-0 Vicryl prior to this subcutaneous fat was irrigated skin closed with 4-0 subcuticular Monocryl incision Steri-Stripped urine was clear at the end of the procedure I attest to the content of the Intraoperative Record and any orders documented therein. Any exceptions are noted below.
[2020-02-28 08:29] LABS: Oxygen Sat Cord Arterial Blood < 60.0 % (<60)
[2020-02-28] MEDS ORDERED: KETOROLAC 30 MG/ML VIAL ONE (08:31)
[2020-02-28] MEDS ORDERED: PHENYLEPHRINE 100MCG/ML 5ML SYR ONE (08:31)
[2020-02-28 08:32] LABS: O2 Saturation Cord Venous Bld < 60.0 % (<68); PO2 Cord Arterial Blood < 10 mmHg (4.1-31.7)
[2020-02-28] MEDS ORDERED: NON-FORMULARY MEDICATION (Prenat.Vits,Cal,Min-Iron-Folic 1 TAB) PO SCH (09:14)
[2020-02-28] MEDS ORDERED: KETOROLAC 30 MG/ML VIAL IV PRN (09:14)
[2020-02-28] MEDS ORDERED: MAGNESIUM HYDROXIDE SUSP 30 ML UDC PO PRN (09:14)
[2020-02-28] MEDS ORDERED: DIPHTHERIA/TETANUS/PERTUSSIS 0.5 ML SYR/VIAL IM ONE (09:14)
[2020-02-28] MEDS ORDERED: MEPERIDINE HCL 50 MG/ML CARP IV PRN (09:14)
[2020-02-28] MEDS ORDERED: HYDROCORTISONE ACETATE 25 MG SUPP PR PRN (09:14)
[2020-02-28] MEDS ORDERED: BENZOCAINE 20% AER SPR 82.5 GM CAN EXT PRN (09:14)
[2020-02-28] MEDS ORDERED: DiphenhydrAMINE HCL 50 MG/ML VIAL IV PRN ×3 (09:14→11:17)
[2020-02-28] MEDS ORDERED: NovoLIN-R INSULIN PER UNIT CHARGE SQ SCH (09:14)
[2020-02-28] MEDS ORDERED: PROMETHAZINE HCL 25 MG in SODIUM CHLORIDE 0.9% 50 ML IV PRN ×2 (09:14→11:17)
[2020-02-28] MEDS ORDERED: ONDANSETRON INJ 2 MG/ML 2 ML VIAL IV PRN ×2 (09:14→11:17)
[2020-02-28] MEDS ORDERED: SENNA 8.6 MG TAB PO PRN (09:14)
[2020-02-28] MEDS ORDERED: SUPERCREAM 0.870% 15 GM JAR EXT PRN (09:14)
[2020-02-28] MEDS: OXYTOCIN 20 UNITS in LACTATED RINGER'S 1,000 ML IV SCH ×2 (10:11→20:00)
[2020-02-28] MEDS ORDERED: Nursing to Pharmacy Communication SCH (11:00)
[2020-02-28] MEDS ORDERED: LACTATED RINGER'S 500 ML IV ONE (11:06)
--- NOTE | 2020-02-28 11:16 | Anesthesiology Progress Note ---
Date of Service February 28, 2020 Anesthesia Post Procedure Vital Signs Vital Signs: Temp Pulse Resp BP Pulse Ox 02/28/20 11:09 74 98 02/28/20 11:06 67 112/64 02/28/20 11:04 66 97 02/28/20 10:59 69 98 02/28/20 10:56 66 113/63 02/28/20 10:54 65 98 02/28/20 10:49 68 98 02/28/20 10:46 74 129/66 02/28/20 10:44 70 98 02/28/20 10:39 65 98 02/28/20 10:37 71 118/54 L 02/28/20 10:34 67 98 02/28/20 10:29 70 98 02/28/20 10:27 88 130/72 02/28/20 10:24 69 98 02/28/20 10:19 78 98 02/28/20 10:16 63 124/72 02/28/20 10:14 91 H 97 02/28/20 10:09 76 98 02/28/20 10:07 20 02/28/20 10:06 63 120/68 02/28/20 10:04 69 98 02/28/20 09:59 62 100 02/28/20 09:56 60 115/61 02/28/20 09:54 69 99 02/28/20 09:49 62 99 02/28/20 09:46 67 127/63 02/28/20 09:44 69 99 02/28/20 09:39 61 99 02/28/20 09:37 20 02/28/20 09:36 65 20 128/61 02/28/20 09:34 72 100 02/28/20 09:29 78 100 02/28/20 09:26 71 20 133/65 02/28/20 09:24 71 100 02/28/20 09:19 81 99 02/28/20 09:16 80 20 135/67 02/28/20 09:14 87 94 02/28/20 09:09 73 98 02/28/20 09:06 72 20 128/71 02/28/20 09:04 67 100 02/28/20 08:59 79 100 02/28/20 08:56 83 20 115/77 02/28/20 08:54 85 100 02/28/20 08:49 69 100 02/28/20 08:46 20 02/28/20 08:44 70 98 02/28/20 08:41 64 89 L 02/28/20 08:39 66 99 02/28/20 08:36 20 02/28/20 08:35 69 96/51 L 02/28/20 08:34 71 100 02/28/20 06:09 36.9 C 61 18 129/96 02/28/20 06:07 36.9 C 61 18 129/96 Transfer of Care Handoff Completed per policy Notes Mental Status: alert / awake / arousable and participated in evaluation Patient Amnestic to Procedure: Yes Nausea / Vomiting: adequately controlled Pain: adequately controlled Airway Patency, RR, SpO2: stable & adequate BP & HR: stable & adequate Hydration State: stable & adequate Neuraxial Anesthesia: was administered and sensory block is resolving Anesthetic Complications: no major complications apparent
[2020-02-28] MEDS ORDERED: HYDROmorphone INJ 0.5 MG/0.5 ML SYR IV PRN (11:17)
[2020-02-28] MEDS ORDERED: ePHEDrine sulfate 50 MG/ML AMP IV PRN (11:17)
[2020-02-28] MEDS ORDERED: MoRPHine SULFATE PF 1 MG/ML 10 ML AMP/VIAL INT SPINAL ONE (11:17)
[2020-02-28] MEDS ORDERED: NALOXONE HCL 0.08 MG in SYRINGE 1.8 ML IV PRN (11:17)
[2020-02-28] MEDS ORDERED: LACTATED RINGER'S 500 ML IV PRN (11:17)
[2020-02-28] MEDS ORDERED: METOCLOPRAMIDE HCL 20 MG in SODIUM CHLORIDE 0.9% 50 ML IV PRN (11:17)
[2020-02-28] MEDS ORDERED: NALOXONE HCL 1 MG in SODIUM CHLORIDE 0.9% 1000ML 1,000 ML IV PRN (11:17)
[2020-02-28] MEDS ORDERED: NALOXONE HCL 0.4 MG/1 ML VIAL/CARP IV PRN (11:17)
[2020-02-28] MEDS ORDERED: MEPERIDINE HCL 25 MG/ML CARP/VIAL IV PRN (11:17)
[2020-02-28] MEDS ORDERED: NO NARCOTICS OR SEDATIVES SCH (11:30)
[2020-02-28] MEDS ORDERED: DC INTRASPINAL MORPHINE SCH (11:30)
[2020-02-28] MEDS ORDERED: SODIUM CHLORIDE 0.9% 1000ML 1,000 ML IV SCH (11:30)
[2020-02-28] MEDS ORDERED: ASPIRIN 81 MG ECTAB PO SCH (12:00)
[2020-02-28] MEDS: METOPROLOL TARTRATE 25 MG TAB PO SCH ×2 (14:25→20:57)
[2020-02-28] MEDS: LEVOTHYROXINE SODIUM 75 MCG TABLET PO SCH (14:26)
[2020-02-28] MEDS: SIMETHICONE 80 MG CHEW PO SCH ×3 (14:26→20:55)
[2020-02-28] MEDS: KETOROLAC 30 MG/ML VIAL IV PRN ×2 (15:42→22:06)
[2020-02-28] MEDS: DOCUSATE SODIUM 100 MG CAP PO SCH (20:55)
[2020-02-28] MEDS: ESCITALOPRAM OXALATE 20 MG TAB PO SCH (20:55)
[2020-02-28] MEDS: CHOLECALCIFEROL 1,000 UNITS 25 MCG TAB PO SCH (20:56)
[2020-02-28] MEDS ORDERED: INSULIN ISOPHANE SQ SCH (21:00)
[2020-02-28] MEDS ORDERED: [UNRECOGNIZED DRUG - OTHER] SQ SCH (21:00)
[2020-02-29] MEDS ORDERED: MEPERIDINE HCL 50 MG/ML CARP IV PRN
[2020-02-29] MEDS ORDERED: KETOROLAC 30 MG/ML VIAL IV PRN
[2020-02-29] MEDS ORDERED: DiphenhydrAMINE HCL 50 MG/ML VIAL IV PRN
[2020-02-29 06:13] LABS: Basophils # (auto) 0.01 K/uL (0-0.2); Basophils % (auto) 0.1 %; Eosinophils % (auto) 0.9 %; Hematocrit (blood only) 28.9 % (37-47); Immature Granulocytes # (auto) 0.02 K/uL (0.00-0.02); Immature Granulocytes % (auto) 0.2 %; Lymphocytes # (auto) 1.56 K/uL (1.2-3.4); Lymphocytes % (auto) 14.8 %; Mean Corpuscular Hemoglobin 31.1 pg (25-34); Mean Corpuscular Hgb Conc 34.6 g/dL (32-36); Mean Corpuscular Volume 89.8 fL (80-100); Mean Platelet Volume 11.4 fL (7.4-10.4); Monocytes % (auto) 5.7 %; Neutrophils # (auto) 8.24 K/uL (1.4-6.5); Neutrophils % (auto) 78.3 %; Platelet Count 162 K/uL (130-400); RDW Coefficient of Variation 13.3 % (11.5-14.5); RDW Standard Deviation 43.3 fL (36.4-46.3); Red Blood Count 3.22 M/uL (4.2-5.4); White Blood Count 10.53 K/uL (4.8-10.8)
[2020-02-29] MEDS: LEVOTHYROXINE SODIUM 75 MCG TABLET PO SCH (06:18)
--- NOTE | 2020-02-29 06:40 | Obstetrical Progress Note ---
Date of Service <Daniel Wong MD - Last Filed: 02/29/20 07:19> February 29, 2020 Assessment & Plan <Daniel Wong MD - Last Filed: 02/29/20 07:19> (1) state: Bruna Cabrera is a 44 y/o w/ hx of T2DM, AMA on insulin (9 ectopic pregnancies) who presented w/ PLTCS + BL at 38w3d. O neg. Neg Abm. Rubella immune. GBS neg. Baby is O+, SHAILESH neg. s/p LTCS + BTL - vitals reviewed, stable. Labs reviewed. H/H 04/29.9. Hb 12.8->10.0. - pain controlled, no complaints about abd wound site. bandage appears c/d/i plan: routine care. pain control. advance diet from clear liquid. encourage ambulation. assistance Hx T2DM on insulin - not on insulin during this admission plan: will check POC glucose today. Rh neg - baby is O+, SHAILESH neg - last rhogam 12/17/19 plan: administer rhogam Subjective <Daniel Wong MD - Last Filed: 02/29/20 07:19> 7/10 pain. toradol helping some, tolerable. itchy from epidural that she had yesterday. all ros neg, no calf ttp. moderate lochia. +flatus, no bm. will eat soon. drinking. no amb. Unable to breast feed, so temporarily bottle feeding w/ Enfamil. Off of fluids Review of Systems Denies fever, chills, sweats Denies shortness of breath, difficulty breathing, chest pain, palpitations. Denies breast pain. Denies dysuria. Denies headache or changes in vision. Denies nausea/vomiting. Denies numbness, tingling, weakness. Physical Exam <Daniel Wong MD - Last Filed: 02/29/20 07:19> General: Alert, oriented. No acute distress. Cardiac: Regular rate and rhythm, no murmurs/rubs/gallops. Respiratory: Mild low-pitches expiratory wheezes bilaterally. Abdomen: LTCS scar bandaged, c/d/i Lower Extremities: 1+ LE edema. No deep calf pain. Ananda's negative bilaterally. Results & Data ([facility]) <Daniel Wong MD - Last Filed: 02/29/20 07:19> Vital Signs (Past 12 Hours) Vital Signs Temp Pulse Resp BP Pulse Ox 02/29/20 05:20 18 98 02/29/20 04:30 37.1 C 77 17 100/57 L 94 02/29/20 04:15 18 97 02/29/20 03:10 18 96 02/29/20 02:05 18 96 02/29/20 01:00 18 95 02/29/20 00:00 37.0 C 73 17 107/60 94 02/28/20 23:25 17 94 02/28/20 22:20 18 95 02/28/20 21:30 18 96 02/28/20 20:30 18 97 02/28/20 19:35 37.2 C 68 20 96/48 L 96 <Bobby Paul MD - Last Filed: 02/29/20 08:58> Co-Signing Physician Notes Patient seen and evaluated with resident and agree with the above findings and plan. Routine care. Patient is a type 2 DM but was on Metformin prepregnancy. Will monitor BG and restart insulin or consult Endocrine if abnormal
[2020-02-29] MEDS: PRENATAL VITAMIN 1 TAB PO SCH (08:02)
[2020-02-29] MEDS: SIMETHICONE 80 MG CHEW PO SCH ×4 (08:02→22:09)
[2020-02-29] MEDS: DOCUSATE SODIUM 100 MG CAP PO SCH ×2 (08:03→20:30)
[2020-02-29] MEDS: FERROUS SULFATE 325 MG TAB PO SCH (08:03)
[2020-02-29] MEDS: METOPROLOL TARTRATE 25 MG TAB PO SCH ×2 (08:08→20:29)
[2020-02-29] MEDS: IBUPROFEN 600 MG TAB PO PRN ×2 (10:28→15:54)
[2020-02-29] MEDS: ACETAMINOPHEN 325 MG TAB PO PRN ×2 (12:30→20:27)
[2020-02-29] MEDS ORDERED: bisacodyL 5 MG TABEC PO SCH (20:00)
[2020-02-29] MEDS: CHOLECALCIFEROL 1,000 UNITS 25 MCG TAB PO SCH (20:28)
[2020-02-29] MEDS: ESCITALOPRAM OXALATE 20 MG TAB PO SCH (20:29)
[2020-02-29] MEDS ORDERED: CALCIUM CARBONATE 500 MG CHEWABLE TAB PO PRN (21:57)
[2020-02-29] MEDS: PANTOprazole 40 MG TAB PO SCH (22:24)
[2020-03-01 06:28] LABS: Hematocrit (blood only) 30.5 % (37-47); Hemoglobin 9.8 g/dL (12.0-16.0)
[2020-03-01] MEDS: LEVOTHYROXINE SODIUM 75 MCG TABLET PO SCH (06:31)
[2020-03-01] MEDS: ACETAMINOPHEN 325 MG TAB PO PRN ×2 (06:36→12:18)
[2020-03-01] MEDS: METOPROLOL TARTRATE 25 MG TAB PO SCH (07:47)
[2020-03-01] MEDS: DOCUSATE SODIUM 100 MG CAP PO SCH (07:47)
[2020-03-01] MEDS: FERROUS SULFATE 325 MG TAB PO SCH (07:47)
[2020-03-01] MEDS: PRENATAL VITAMIN 1 TAB PO SCH (07:47)
[2020-03-01] MEDS: PANTOprazole 40 MG TAB PO SCH (07:48)
[2020-03-01] MEDS: SIMETHICONE 80 MG CHEW PO SCH (07:48)
[2020-03-01] MEDS ORDERED: bisacodyL 10 MG SUPP PR PRN (08:22)
--- NOTE | 2020-03-01 09:41 | Obstetrical Progress Note ---
Date of Service March 01, 2020 Assessment & Plan (1) Status post emergency section: satisfactory progress wishes to be discharged f/u in 6 weeks Day #:: 2 Subjective Ambulation: ambulating normally Voiding: no voiding problems Passing Gas:: Yes Diet Tolerance:: regular diet Lochia:: Small Feeding Type:: breast feeding pain well controlled with tylenol & motrin Review of Systems All systems reviewed & are unremarkable except as noted in HPI & below Physical Exam Constitutional WD/WN, vitals as above Gastrointestinal (Abdomen) Inspection/Auscultation: + abdominal surgical incision (clean dry & intact) Psychiatric A+Ox3, euthymic affect Genitourinary OB Exam Abdomen: + fundal height (2 below U) Fundus: + firm Results & Data ([facility]) Vital Signs (Past 12 Hours) Vital Signs Temp Pulse Resp BP 03/01/20 07:45 98.6 F 65 20 121/75 02/29/20 23:45 98.2 F 65 16 117/76
[2020-03-01] MEDS: IBUPROFEN 600 MG TAB PO PRN (12:19)
--- NOTE | 2020-03-03 15:45 | Discharge Summary ---
Date of Service March 03, 2020 Admission HPI Per Admitting Provider Patient known to our practice is a type II diabetic on insulin smoker AMA prior vaginal but is she had a wishing a section there were complications at her last vaginal and she wishes to proceed with section if she is an active labor she is in fact scheduled for repeat section March 06 tonight she presented in active labor alison every 2 to 3 minutes rating the contractions 10 out of 10 she is not leaking fluid Admission Exam (Per Admitting) Constitutional WD/WN, vitals as above Respiratory normal respiratory effort, lungs clear to auscultation Cardiovascular RRR, no murmur, no edema Gastrointestinal (Abdomen) normal bowel sounds, soft, nontender, no hepatosplenomegaly Discharge Data Consultations 02/28/20 06:10 Consult Anesthesiology Stat Procedures Performed Operation Date: 02/28/20 06:30 Actual Procedures p Section in - J. Franc Montes MD, FACOG Hospital Course (1) Status post emergency section: satisfactory progress wishes to be discharged f/u in 6 weeks Coding Level of Care Code None Diagnoses Status post emergency section Z98.891
== END 2020-03-01 13:30 | disposition home or self-care (01) | DRG 785 ==
LOC: 4S1 → 4S2 11:41

== ENCOUNTER 2021-12-21 14:25 | Observation (INO) ==
[2021-12-21 14:57] LABS: Basophils # (auto) 0.02 K/uL (0-0.2); Basophils % (auto) 0.2 %; Eosinophils # (auto) 0.14 K/uL (0-0.5); Eosinophils % (auto) 1.5 %; Hematocrit (blood only) 37.2 % (37-47); Hemoglobin 11.8 g/dL (12.0-16.0); Immature Granulocytes # (auto) 0.01 K/uL (0.00-0.02); Immature Granulocytes % (auto) 0.1 %; Lymphocytes # (auto) 3.15 K/uL (1.2-3.4); Lymphocytes % (auto) 33.5 %; Mean Corpuscular Hemoglobin 25.1 pg (25-34); Mean Corpuscular Hgb Conc 31.7 g/dL (32-36); Mean Corpuscular Volume 79.1 fL (80-100); Mean Platelet Volume 10.1 fL (7.4-10.4); Monocytes # (auto) 0.42 K/uL (0.11-0.59); Monocytes % (auto) 4.5 %; Neutrophils # (auto) 5.67 K/uL (1.4-6.5); Neutrophils % (auto) 60.2 %; Platelet Count 295 K/uL (130-400); RDW Coefficient of Variation 15.8 % (11.5-14.5); RDW Standard Deviation 46.1 fL (36.4-46.3); White Blood Count 9.41 K/uL (4.8-10.8)
[2021-12-21] MEDS ORDERED: CYCLOBENZAPRINE HCL 10 MG TAB PO STA (15:04)
[2021-12-21] MEDS ORDERED: KETOROLAC TROMETHAMINE 15 MG/ML VIAL IV STA (15:04)
[2021-12-21] MEDS ORDERED: SODIUM CHLORIDE 0.9% 1000ML 1,000 ML IV ONE (15:04)
[2021-12-21] MEDS ORDERED: ACETAMINOPHEN 1000 MG/100 ML IV IV STA (15:04)
--- NOTE | 2021-12-21 15:13 | Emergency Department Note ---
Impression & Plan Weakness, Fall, Abnormal magnetic resonance imaging of cervical spine, Acute thoracic back pain, Hypomagnesemia ED Provider Note NAME: JOSELITO CABRERA AGE: 46 SEX: F : 1975 ARRIVES VIA: Walk-In INFORMANT: [Patient] ED PROVIDER(S): [Paco Gaytan MD] CHIEF COMPLAINT: Back pain, weak HISTORY OF PRESENT ILLNESS: The patient is a 46-year-old female with a history of spinal cord compression requiring decompressive surgery. The surgery was in 2017. The patient states that in the last 2 weeks, she has had increasing pain in her left scapula and increasing pain and numbness in her left arm and hand. She also has noticed weakness in both legs and she has at times fallen because of the weakness, although, she has not suffered trauma. She has noticed some pain across the chest. She just does not feel well. The back and chest pain has gotten to the point where it has become severe. The patient denies fever, no cough or congestion or shortness of breath. No urinary complaints. She is concerned that her spinal cord issue has returned. Of note, the patient has noticed some left facial numbness at times as well. She had never noticed this before with her spinal cord problem. She has tried some opby-brj-paggxlo pain meds for relief. REVIEW OF SYSTEMS: See HPI for pertinent positives and negatives. A total of ten systems were reviewed and were otherwise negative. PMHx/PSHx: See Below SOCIAL HISTORY: See Below. PHYSICAL EXAM: GENERAL: Patient is in no acute distress. HEENT: No acute trauma, normocephalic atraumatic, mucous membranes moist, no nasal congestion, no scleral icterus. No facial droop. NECK: No stridor, no adenopathy, no meningismus, trachea is midline. LUNGS: Clear to auscultation bilaterally, no wheeze, no rhonchi, breath sounds equal. HEART: Without murmurs gallops or rubs, regular rate and rhythm. ABDOMEN: Soft, nontender, bowel sounds positive, no peritonitis. EXTREMITIES: No cyanosis or edema, full range of motion of all the joints without pain or difficulty, no signs for acute trauma. NEUROLOGIC: Oriented x 3, no acute motor or sensory deficits, no focal weakness. I cannot elicit any weakness in the upper or lower extremities. There is no facial droop or speech slur, there is no cerebellar dysfunction or pronator drift. There is no extremity drift. Reflexes are 2 out of 4 in the patella and Achilles bilaterally. SKIN: No rash, no jaundice, no diaphoresis. DIFFERENTIAL DIAGNOSIS: Stroke, intracranial mass, spinal cord compression, anemia, electrolyte imbalance, UTI, [place], dysrhythmia, musculoskeletal pain, transverse myelitis, among others. EMERGENCY DEPARTMENT COURSE/PROCEDURES: ECG: Indication was chest pain. The ECG shows a normal sinus rhythm with a rate of 69. There is some nonspecific ST change. There is no ST elevation, no PVCs. The QTc is 415. Continuous Cardiac Monitoring: An order was placed for continuous cardiac monitoring. The monitor shows a rate of 82 with normal sinus rhythm. Critical Care Note: I have personally spent 41 minutes of critical care time in the direct management of this patient. This includes bedside care, interpretation of diagnostic studies, and testing, discussion with consultants, patient, and family members, and other required patient management activities. This 41 minutes is in excess of all separately billable procedures. MEDICAL DECISION MAKING: There is no leukocytosis or concerning anemia. There is a normal platelet count. No renal failure. Magnesium slightly low at 1.6. No concerning liver enzyme elevation. The patient appears to be in a euthyroid state. ECG shows a normal sinus rhythm, no acute ischemia. Cardiac enzyme testing x1 is not consistent with acute cardiac injury. Urinalysis does not show infection. COVID test is negative. Chest film does not show mediastinal widening, pneumonia or pneumothorax. MRI of the brain showed some nonspecific changes, no stroke or mass. MRI of the cervical spine did show some narrowing and myelomalacia. No mention of abscess, no mention of severe stenosis. On exam, the patient had adequate reflexes in her lower extremities. She had good strength in all 4 extremities. She was not toxic or febrile. The patient was given IV Tylenol for pain, oral Flexeril for muscle spasm. She was given IV hydralazine for her slightly elevated blood pressure. She received IV Toradol, IV magnesium and IV saline. She was eventually given a dose of IV Decadron, 10 mg. I did speak with neurology as well as neurosurgery (Dr. Denson) at [facility] in [place]. They were able to review the images through life image. At this point, there is no acute surgical intervention required. They recommended IV steroids, observation, transfer to their facility potentially if the patient were to worsen. The neurosurgeon felt the patient had a chronic issue which was likely exacerbated with recent activity. I spoke to the patient, I talked to case management. I did speak with the on- call hospitalist. I did check the patient several times, her strength and reflexes have remained adequate. Past Med/Surg History Medical History Abnormal mammography Acid reflux controlled Adnexal cyst Anxiety Diabetes mellitus, type 2 NIDDM Diabetes type 2, uncontrolled Elderly multigravida History of chicken pox Insulin controlled gestational diabetes mellitus (GDM) during , antepartum Irregular contractions Irregular uterine contractions Need for rhogam due to Rh negative mother state with 35 completed weeks gestation Premature atrial complexes Premature uterine contractions Supervision of elderly multigravida, antepartum Tobacco smoking affecting Surgical History H/O partial nephrectomy H/O tubal ligation History of colonoscopy History of dilatation and curettage History of esophagogastroduodenoscopy (EGD) History of reversal of tubal ligation Previous delivery affecting , antepartum 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 Family History Uncle Anemia Kidney stones Mother Asthma Breast cancer Hypertension Father Diabetes Atrial fibrillation Grandmother Diabetes Myocardial infarction Grandfather Myocardial infarction Heart disease Stroke Sister Obesity Thyroid disease Denies family history of Colon cancer Ovarian cancer Prostate cancer Colorectal cancer Social History Smoking Status: Current every day smoker Tobacco Type: Cigarettes Age Started Using Tobacco: 15; packs per day: 0.5; Cigarettes Per Day: 10; Second Hand Exposure: Yes (); Hx Alcohol Use: No Hx Substance Use: No Preferred Language: Irish Communication Ability: Effective Visual Impairment: No Limitations Hearing Ability: Normal 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 Beliefs That Will Affect Care: None marital status: marital status details: Ortiz Cabrera (39) [phone] Current Living Situation: Spouse and Family Current Living Situation Comment: lives at home with , son 21, and pets current occupational status: disabled Feels Safe at Home: Yes Childhood Exposure to Second-Hand Smoke: Yes caffeine: No Dental Care, Regularly: Yes Physical Activity Frequency: Daily Physical Activity Frequency Comment: walking, House work Seatbelt Use: always Sunscreen Use: Yes Assistive Devices: Glasses Allergies Allergies Allergy/AdvReac Type Severity Reaction Status Date / Time mold Allergy Severe SHORTNESS Verified 12/21/21 18:41 OF BREATH fentanyl Allergy Intermediate SKIN RASH Verified 12/21/21 18:41 morphine Allergy Intermediate RASH Verified 12/21/21 18:41 Iodinated Contrast Media AdvReac Intermediate PALPITATIONS, Verified 12/21/21 18:41 FLUSHING nicotine AdvReac Intermediate HEART Verified 12/21/21 18:41 RACES WITH PATCH oxycodone AdvReac Intermediate GI SYMPTOMS Verified 12/21/21 18:41 Home Meds Home Medications Medication Instructions Recorded Confirmed acetaminophen 650 mg 650 mg PO Q8H PRN 02/16/21 12/21/21 tablet,extended release aspirin 81 mg tablet,delayed 81 mg PO DAILY 02/16/21 12/21/21 release dulaglutide 0.75 mg/0.5 mL 0.75 mg SUBCUT WK 12/21/21 12/21/21 subcutaneous pen injector (Trulicity) escitalopram oxalate 10 mg tablet 10 mg PO QAM 12/21/21 12/21/21 (Lexapro) Previous Rx's Medication Instructions Recorded cholecalciferol (vitamin D3) 125 5,000 unit PO QPM #90 tab 09/17/19 mcg (5,000 unit) tablet metformin 500 mg tablet 1,000 mg PO BID #360 tab 03/12/21 metoprolol tartrate 25 mg tablet 25 mg PO BID #60 tab 08/03/21 blood sugar diagnostic (Accu-Chek #300 ea 08/09/21 Dena Plus test strp) lancets 33 gauge (BD Ultra Fine #300 ea 08/09/21 Lancets) ondansetron 4 mg disintegrating 4 mg PO Q8H PRN #30 tab 10/05/21 tablet escitalopram oxalate 20 mg tablet 20 mg PO QPM #90 tab 12/20/21 Results & Data (ED) Vital Signs Vital Signs - 24 hr 12/21/21 14:26 12/21/21 15:45 12/21/21 18:16 Temperature 37.1 C Temperature Source Temporal Artery Scan Pulse Rate 82 Pulse Rate [Right Finger] 71 57 L Pulse Rhythm [Right Finger] Regular Pulse Strength [Right Finger] Normal Respiratory Rate 18 20 15 Respiratory Effort / Characteristics Non-Labored Non-Labored Non-Labored Respiratory Depth Normal Normal Normal Blood Pressure 109/75 Blood Pressure [Right Arm] 137/106 H 172/106 H Blood Pressure Mean 86 Blood Pressure Mean [Right Arm] 116 128 Blood Pressure Position Sitting Blood Pressure Position [Right Arm] Lying Pulse Oximetry 95 98 97 Oxygen Delivery Method Room Air Room Air Room Air Sepsis Recent Fever Within 48 Hours No Sepsis New/Unexplained Change in Mental Status N/A Sepsis Action Taken by Nursing No Action Required 12/21/21 18:25 12/21/21 19:20 12/21/21 21:20 Temperature Temperature Source Pulse Rate Pulse Rate [Right Finger] 66 Pulse Rhythm [Right Finger] Pulse Strength [Right Finger] Respiratory Rate 16 Respiratory Effort / Characteristics Non-Labored Respiratory Depth Normal Blood Pressure Blood Pressure [Right Arm] 174/109 H 146/97 H 137/99 Blood Pressure Mean Blood Pressure Mean [Right Arm] 130 113 111 Blood Pressure Position Blood Pressure Position [Right Arm] Pulse Oximetry 97 Oxygen Delivery Method Room Air Sepsis Recent Fever Within 48 Hours Sepsis New/Unexplained Change in Mental Status Sepsis Action Taken by [facility] Medications Current Medication List: was personally reviewed by me Laboratory Data Attestation: I reviewed the patient's lab results. Result diagrams: 12/21/21 14:40 12/21/21 14:40 Lab Results 12/21/21 12/21/21 12/21/21 Range/Units 14:40 14:40 14:40 WBC 9.41 (4.8-10.8) K/uL RBC 4.70 (4.2-5.4) M/uL Hgb 11.8 L (12.0-16.0) g/dL Hct 37.2 (37-47) % MCV 79.1 L (80-100) fL MCH 25.1 (25-34) pg MCHC 31.7 L (32-36) g/dL RDW Std Deviation 46.1 (36.4-46.3) fL RDW Coeff of Gabby 15.8 H (11.5-14.5) % Plt Count 295 (130-400) K/uL MPV 10.1 (7.4-10.4) fL Immature Gran % (Auto) 0.1 % Neut % (Auto) 60.2 % Lymph % (Auto) 33.5 % [place] % (Auto) 4.5 % Eos % (Auto) 1.5 % Baso % (Auto) 0.2 % Neut # (Auto) 5.67 (1.4-6.5) K/uL Lymph # (Auto) 3.15 (1.2-3.4) K/uL [place] # (Auto) 0.42 (0.11-0.59) K/uL Eos # (Auto) 0.14 (0-0.5) K/uL Baso # (Auto) 0.02 (0-0.2) K/uL Immature Gran # (Auto) 0.01 (0.00-0.02) K/uL Sodium 135 L (136-145) mmol/L Potassium 4.1 (3.5-5.1) mmol/L Chloride 103 (98-107) mmol/L Carbon Dioxide 25 (21-32) mmol/L Anion Gap 7 (3-11) BUN 10 (6-23) mg/dl Creatinine 0.85 (0.6-1.2) mg/dl Est Cr Clr Drug Dosing 89.8 ml/min Est GFR ( Amer) 96.6 ml/min Est GFR (Non-Af Amer) 83.3 ml/min BUN/Creatinine Ratio 11.8 (10-20) Glucose 111 H (70-99(Fasting)) mg/dl Calcium 9.1 (8.5-10.1) mg/dl Magnesium 1.6 L (1.7-2.4) mg/dl Total Bilirubin 0.5 (0.2-1.0) mg/dl AST 12 L (13-39) U/L ALT 11 (7-52) U/L Alkaline Phosphatase 85 (34-104) U/L Troponin I High Sens < 2.3 (0-14) pg/ml Total Protein 6.8 (6.0-8.3) gm/dl Albumin 4.1 (3.4-5.0) gm/dl Globulin 2.7 (2.5-4.0) gm/dl Albumin/Globulin Ratio 1.5 (0.9-2) TSH (0.300-4.500) uIu/ml Urine Color Urine Appearance (Clear) Urine pH (4.5-7.5) Ur Specific [place] (1.000-1.030) Urine Protein (Negative) Urine Glucose (UA) (Negative) Urine Ketones (Negative) Urine Blood (Negative) Urine Nitrite (Negative) Urine Bilirubin (Negative) Urine Urobilinogen (Negative) Ur Leukocyte Esterase (Negative) SARS-CoV-2, RNA, NAAT (NEGATIVE) 12/21/21 12/21/21 12/21/21 Range/Units 14:40 18:30 20:23 WBC (4.8-10.8) K/uL RBC (4.2-5.4) M/uL Hgb (12.0-16.0) g/dL Hct (37-47) % MCV (80-100) fL MCH (25-34) pg MCHC (32-36) g/dL RDW Std Deviation (36.4-46.3) fL RDW Coeff of Gabby (11.5-14.5) % Plt Count (130-400) K/uL MPV (7.4-10.4) fL Immature Gran % (Auto) % Neut % (Auto) % Lymph % (Auto) % [place] % (Auto) % Eos % (Auto) % Baso % (Auto) % Neut # (Auto) (1.4-6.5) K/uL Lymph # (Auto) (1.2-3.4) K/uL [place] # (Auto) (0.11-0.59) K/uL Eos # (Auto) (0-0.5) K/uL Baso # (Auto) (0-0.2) K/uL Immature Gran # (Auto) (0.00-0.02) K/uL Sodium (136-145) mmol/L Potassium (3.5-5.1) mmol/L Chloride (98-107) mmol/L Carbon Dioxide (21-32) mmol/L Anion Gap (3-11) BUN (6-23) mg/dl Creatinine (0.6-1.2) mg/dl Est Cr Clr Drug Dosing ml/min Est GFR ( Amer) ml/min Est GFR (Non-Af Amer) ml/min BUN/Creatinine Ratio (10-20) Glucose (70-99(Fasting)) mg/dl Calcium (8.5-10.1) mg/dl Magnesium (1.7-2.4) mg/dl Total Bilirubin (0.2-1.0) mg/dl AST (13-39) U/L ALT (7-52) U/L Alkaline Phosphatase (34-104) U/L Troponin I High Sens (0-14) pg/ml Total Protein (6.0-8.3) gm/dl Albumin (3.4-5.0) gm/dl Globulin (2.5-4.0) gm/dl Albumin/Globulin Ratio (0.9-2) TSH 3.226 (0.300-4.500) uIu/ml Urine Color Yellow Urine Appearance Clear (Clear) Urine pH 6.0 (4.5-7.5) Ur Specific [place] 1.020 (1.000-1.030) Urine Protein Negative (Negative) Urine Glucose (UA) Negative (Negative) Urine Ketones Negative (Negative) Urine Blood Negative (Negative) Urine Nitrite Negative (Negative) Urine Bilirubin Negative (Negative) Urine Urobilinogen Negative (Negative) Ur Leukocyte Esterase Negative (Negative) SARS-CoV-2, RNA, NAAT NEGATIVE (NEGATIVE) Administered Medications Discontinued Medications Acetaminophen (Acetaminophen 1000 Mg/100 Ml Iv) 1,000 mg IV NOW STA Stop: 12/21/21 15:05 Last Admin: 12/21/21 15:36 Dose: 1,000 mg Documented by: [id number] Cyclobenzaprine HCl (Cyclobenzaprine Hcl 10 Mg Tab) 10 mg PO NOW STA Stop: 12/21/21 15:05 Last Admin: 12/21/21 15:36 Dose: 10 mg Documented by: [id number] Dexamethasone Sodium Phosphate (DexamethasonePf 10 Mg/Ml Vial) 10 mg IV NOW ONE Stop: 12/21/21 19:41 Last Admin: 12/21/21 19:47 Dose: 10 mg Documented by: [id number] Gadobutrol (Gadobutrol 65ml Vial) 8.6 ml IV ONCE ONE Stop: 12/21/21 17:33 Last Admin: 12/21/21 17:30 Dose: 8.6 ml Documented by: [id number] Hydralazine HCl (Hydralazine Hcl 20 Mg/Ml Vial) 5 mg IV NOW STA Stop: 12/21/21 18:48 Last Admin: 12/21/21 18:56 Dose: 5 mg Documented by: [id number] Sodium Chloride (Nss 1000ml) 1,000 mls @ 999 mls/hr IV .Q1H1M ONE Stop: 12/21/21 16:04 Last Infusion: 12/21/21 16:39 Dose: 0 mls/hr Documented by: [id number] Admin: 12/21/21 15:31 Dose: 999 mls/hr Documented by: [id number] Magnesium Sulfate/Dextrose (Magnesium Sulfate / D5w) 1 gm in 100 mls @ 100 mls/hr IV NOW STA Stop: 12/21/21 17:41 Last Infusion: 12/21/21 19:14 Dose: 0 mls/hr Documented by: [id number] Admin: 12/21/21 18:12 Dose: 100 mls/hr Documented by: [id number] Ketorolac Tromethamine (Ketorolac Tromethamine 15 Mg/Ml Vial) 15 mg IV NOW STA Stop: 12/21/21 15:05 Last Admin: 12/21/21 15:36 Dose: 15 mg Documented by: [id number] Imaging Data Radiologist's Impression: Cervical Spine MRI 12/21/21 15:04 MRI OF THE CERVICAL SPINE WITH AND WITHOUT CONTRAST CLINICAL HISTORY: History of cord compression, falling, weak COMPARISON: MRI of the cervical spine February 20, 2019. Cervical spine radiographs April 19, 2019. TECHNIQUE: Utilizing a 1.5 Suki magnet and dedicated coil, multiplanar, multiecho imaging of the cervical spine was performed before and after intravenous administration of 8.6 of Gadavist. FINDINGS: There is mild reversal of the normal cervical lordosis. Postoperative findings consistent with C4-C5 and C5-C6 anterior discectomy and fusion is noted. No cervical spine fracture is noted. There is no suspicious marrow replacement. Paravertebral soft tissues are unremarkable. There is possible increased cord si gnal at the C5-C6 level shown on sagittal STIR sequence image 9 of 17. Cord signal is suboptimally assessed due to artifact on this exam. No abnormal enhancement within the cervical canal is present. C2-C3: The central canal and neural foramen are patent. C3-C4: Mild posterior disc osteophyte complex effaces the ventral thecal sac. There is no significant central canal stenosis. There is mild bilateral neural foraminal stenosis. C4-C5: Evaluation is compromised due to artifact from surgical hardware. There is suggestion of mild central canal stenosis. There is moderate to severe bilateral neural foraminal stenosis. C5-C6: Evaluation is compromised by artifact from hardware. There is mild to moderate central canal stenosis. Probable moderate bilateral neural foraminal stenosis. C6-C7: Posterior disc osteophyte complex contacts the ventral aspect of the c ord. There is moderate central canal stenosis. There is mild to moderate bilateral neural foraminal stenosis. C7-T1: Central canal and neural foramen are patent. IMPRESSION: 1. Status post C4-C5 and C5-C6 anterior discectomy and fusion. 2. Moderate central canal stenosis at C6-C7 due to posterior disc osteophyte complex. In addition, mild to moderate central canal stenosis at C4-C5 and C5-C6 which is suboptimally assessed on this exam. 3. Multilevel neural foraminal stenosis, suboptimally assessed due to artifact from surgical hardware. 4. Possible mild increased cord signal at the C5-C6 level. This may be artifactual. However, myelomalacia could have this appearance. Cord edema is considered less likely. ACT 112: Negative or not required by law. Electronically signed by: Ricky Mendoza M.D. 12/21/2021 6:36 PM Chest X-Ray 12/21/21 15:05 XR chest 1V portable CLINICAL HISTORY: weakness. Evaluate cardiopulmonary status COMPARISON STUDY: 02/22/2019 TECHNIQUE: 1 view of the chest FINDINGS: Single frontal view of the chest demonstrates the cardiomediastinal silhouette to be within normal limits. The lungs are clear of alveolar opacities. There is no evidence for pleural effusion. There is no evidence for vascular congestion. There is no acute osseous pathology. IMPRESSION: 1. No acute cardiopulmonary disease. ACT 112: Negative or not required by law. Electronically signed by: Timoteo Klein M.D. 12/21/2021 3:23 PM Brain MRI 12/21/21 15:35 MRI OF THE BRAIN WITHOUT AND WITH IV CONTRAST CLINICAL HISTORY: left face numb, legs weak, falling COMPARISON STUDY: Head CT January 18, 2018. MRI of the brain September 01, 2017. TECHNIQUE: Utilizing a 1.5 Suki magnet and dedicated coil, multiplanar, multiecho imaging of the brain was performed pre and postcontrast administration. IV administration of 8.6 mL of Gadavist contrast was uneventful. FINDINGS: There are no foci of restricted diffusion to suggest acute infarct. No acute intracranial hemorrhage, midline shift or mass effect is present. Ventricular system is unremarkable. Basal cisterns are patent. There are no extra-axial collections. There is no intracranial mass or pathologic enhancemen t. There are multiple small white matter T2 hyperintense foci. These have minimally increased since MRI of September 01, 2017. These are nonspecific. Calvarial signal is within normal limits. There are postoperative findings within the sinuses. No evidence for acute sinusitis. There is no mastoid fluid. IMPRESSION: 1. No acute intracranial findings. 2. No intracranial mass or pathologic enhancement. 3. Multiple small white matter T2 hyperintense foci. Slight increase since MRI of September 01, 2017. These are nonspecific. Although within the differential, the appearance is not highly suggestive of demyelinating disease. ACT 112: Negative or not required by law. Electronically signed by: Ricky Mendoza M.D. 12/21/2021 6:23 PM Discharge Plan Visit Data Chief Complaint: Back Injury/Pain Stated Complaint: BACK PAIN, ARM/LEG PAIN ED Provider: Paco Gaytan Discharge Problem: Weakness, Fall, Abnormal magnetic resonance imaging of cervical spine, Acute thoracic back pain, Hypomagnesemia Patient Disposition: Admitted As Inpatient Condition: Fair Forms Stand Alone Forms: [facility] Prescriptions Prescriptions: No Action metformin 500 mg tablet 1,000 mg PO BID Qty: 360 RF: 1 metoprolol tartrate 25 mg tablet 25 mg PO BID Qty: 60 RF: 5 (DME) Accu-Chek Dena Plus test strp Strip See Rx Instructions .ROUTE .MEDSUPPLY Qty: 300 RF: 3 (DME) lancets [BD Ultra Fine Lancets] 33 gauge misc See Rx Instructions .ROUTE .MEDSUPPLY Qty: 300 RF: 3 ondansetron 4 mg tablet,disintegrating 4 mg PO Q8H PRN (Reason: nausea and vomiting) Qty: 30 RF: 0 escitalopram oxalate 20 mg tablet 20 mg PO QPM Qty: 90 RF: 3 cholecalciferol (vitamin D3) 125 mcg (5,000 unit) tablet 5,000 unit PO QPM Qty: 90 RF: 3 aspirin 81 mg Tablet,Delayed Release (Dr/Ec) 81 mg PO DAILY RF: 0 acetaminophen [Tylenol Arthritis] 650 mg Tablet Extended Release 650 mg PO Q8H PRN (Reason: Pain) RF: 0 escitalopram oxalate [Lexapro] 10 mg tablet 10 mg PO QAM RF: 0 Trulicity 0.75 mg/0.5 mL pen injector 0.75 mg subcut WK RF: 0 Referrals Referrals: Viktoria Ballesteros MD [Primary Care Provider] -
[2021-12-21 15:22] LABS: Albumin Globulin Ratio 1.5 (0.9-2); Albumin Level 4.1 gm/dl (3.4-5.0); BUN Creatinine Ratio 11.8 (10-20); Bilirubin,Total 0.5 mg/dl (0.2-1.0); Calcium 9.1 mg/dl (8.5-10.1); Creatinine Clr Calc Pharmacy 89.8 ml/min; Est GFR (African American) 96.6 ml/min; Est GFR (Non-African American) 83.3 ml/min; Globulin 2.7 gm/dl (2.5-4.0); Potassium 4.1 mmol/L (3.5-5.1); Total Protein 6.8 gm/dl (6.0-8.3)
--- NOTE | 2021-12-21 15:25 | XRay Report ---
XR chest 1V portable CLINICAL HISTORY: weakness. Evaluate cardiopulmonary status COMPARISON STUDY: 02/22/2019 TECHNIQUE: 1 view of the chest FINDINGS: Single frontal view of the chest demonstrates the cardiomediastinal silhouette to be within normal li mits. The lungs are clear of alveolar opacities. There is no evidence for pleural effusion. There is no evidence for vascular congestion. There is no acute osseous pathology. IMPRESSION: 1. No acute cardiopulmonary disease. ACT 112: Negative or not required by law. Electronically signed by: Timoteo Klein M.D. 12/21/2021 3:23 PM
[2021-12-21 16:27] LABS: Troponin I High Sensitivity < 2.3 pg/ml (0-14)
--- NOTE | 2021-12-21 16:27 | Electrocardiogram Report ---
Test Reason : Blood Pressure : / mmHG Vent. Rate : 069 BPM Atrial Rate : 069 BPM P-R Int : 128 ms QRS Dur : 074 ms QT Int : 388 ms P-R-T Axes : 030 -14 025 degrees QTc Int : 415 ms Poor data quality, interpretation may be adversely affected Normal sinus rhythm Low voltage QRS Poor R wave progression, consider anterior GA vs. lead placement vs. LVH Abnormal ECG When compared with ECG of 27-FEB-2019 16:18, No significant change was found Confirmed by Chandrakant Flores ([id number]) on 12/21/2021 4:27:36 PM Referred By: Confirmed By:Chandrakant Flores
[2021-12-21 16:29] LABS: Magnesium 1.6 mg/dl (1.7-2.4)
[2021-12-21] MEDS ORDERED: MAGNESIUM SULFATE / D5W 1 GM/100 ML BAG IV STA (16:42)
[2021-12-21] MEDS ORDERED: GADOBUTROL 65ML VIAL IV ONE (17:32)
--- NOTE | 2021-12-21 18:25 | Magnetic Resonance Report ---
MRI OF THE BRAIN WITHOUT AND WITH IV CONTRAST CLINICAL HISTORY: left face numb, legs weak, falling COMPARISON STUDY: Head CT January 18, 2018. MRI of the brain September 01, 2017. TECHNIQUE: Utilizing a 1.5 Suki magnet and dedicated coil, multiplanar, multiecho imaging of the br ain was performed pre and postcontrast administration. IV administration of 8.6 mL of Gadavist contr ast was uneventful. FINDINGS: There are no foci of restricted diffusion to suggest acute infarct. No acute intracranial h emorrhage, midline shift or mass effect is present. Ventricular system is unremarkable. Basal cistern s are patent. There are no extra-axial collections. There is no intracranial mass or pathologic enhan cement. There are multiple small white matter T2 hyperintense foci. These have minimally increased si nce MRI of September 01, 2017. These are nonspecific. Calvarial signal is within normal limits. There are postoperative findings within the sinuses. No evidence for acute sinusitis. There is no mastoid fluid . IMPRESSION: 1. No acute intracranial findings. 2. No intracranial mass or pathologic enhancement. 3. Multiple small white matter T2 hyperintense foci. Slight increase since MRI of September 01, 2017. Thes e are nonspecific. Although within the differential, the appearance is not highly suggestive of demye linating disease. ACT 112: Negative or not required by law. Electronically signed by: Ricky Mendoza M.D. 12/21/2021 6:23 PM
--- NOTE | 2021-12-21 18:38 | Magnetic Resonance Report ---
MRI OF THE CERVICAL SPINE WITH AND WITHOUT CONTRAST CLINICAL HISTORY: History of cord compression, falling, weak COMPARISON: MRI of the cervical spine February 20, 2019. Cervical spine radiographs April 19, 2019. TECHNIQUE: Utilizing a 1.5 Suki magnet and dedicated coil, multiplanar, multiecho imaging of the ce rvical spine was performed before and after intravenous administration of 8.6 of Gadavist. FINDINGS: There is mild reversal of the normal cervical lordosis. Postoperative findings consistent with C4-C5 and C5-C6 anterior discectomy and fusion is noted. No cervical spine fracture is noted. There is no s uspicious marrow replacement. Paravertebral soft tissues are unremarkable. There is possible increase d cord signal at the C5-C6 level shown on sagittal STIR sequence image 9 of 17. Cord signal is subopt imally assessed due to artifact on this exam. No abnormal enhancement within the cervical canal is pr esent. C2-C3: The central canal and neural foramen are patent. C3-C4: Mild posterior disc osteophyte complex effaces the ventral thecal sac. There is no significan t central canal stenosis. There is mild bilateral neural foraminal stenosis. C4-C5: Evaluation is compromised due to artifact from surgical hardware. There is suggestion of mild central canal stenosis. There is moderate to severe bilateral neural foraminal stenosis. C5-C6: Evaluation is compromised by artifact from hardware. There is mild to moderate central canal stenosis. Probable moderate bilateral neural foraminal stenosis. C6-C7: Posterior disc osteophyte complex contacts the ventral aspect of the cord. There is moderate central canal stenosis. There is mild to moderate bilateral neural foraminal stenosis. C7-T1: Central canal and neural foramen are patent. IMPRESSION: 1. Status post C4-C5 and C5-C6 anterior discectomy and fusion. 2. Moderate central canal stenosis at C6-C7 due to posterior disc osteophyte complex. In addition, mi ld to moderate central canal stenosis at C4-C5 and C5-C6 which is suboptimally assessed on this exam. 3. Multilevel neural foraminal stenosis, suboptimally assessed due to artifact from surgical hardware . 4. Possible mild increased cord signal at the C5-C6 level. This may be artifactual. However, myelomal acia could have this appearance. Cord edema is considered less likely. ACT 112: Negative or not required by law. Electronically signed by: Ricky Mendoza M.D. 12/21/2021 6:36 PM
[2021-12-21] MEDS ORDERED: hydrALAZINE HCL 20 MG/ML VIAL IV STA (18:47)
[2021-12-21 19:02] LABS: Appearance Urine Clear (Clear); Bilirubin Urine Negative (Negative); Blood Urine Negative (Negative); Color Urine Yellow; Glucose Urine UA Negative (Negative); Ketones Urine Negative (Negative); Leukocyte Esterase Urine Negative (Negative); Nitrite Urine Negative (Negative); Protein Urine Negative (Negative); Urobilinogen Urine Negative (Negative)
[2021-12-21] MEDS ORDERED: dexAMETHasone**PF** 10 MG/ML VIAL IV ONE (19:40)
--- NOTE | 2021-12-21 20:15 | History & Physical Report ---
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 Left scapula pain, left arm/hand numbness Patient with a two-week history of worsening of preexisting cervical radiculopathy symptoms In ED, received dexamethasone 10mg IV x1, flexeril 10mg PO x1, and toradol 15mg IV x1, leading to an improvement in pain MRI c-spine: surgical hardware noted, moderate C6-C7 d/t posterior disc osteophyte complex, mild-mod C4-C5/C5-C6 canal stenosis, multilevel foraminal stenosis, mild increased C5-C6 cord signal MRI brain: no acute intracranial findings, but does remonstrate multiple small white matter T2 foci, with a slight size increase since 2018 (read as nonspecific and not highly suggestive of demyelinating disease) Differential includes worsening DJD, spinal stenosis, inflammatory etiologies Will consult orthopedic surgery Continue dexamethasone 4mg IV q6h Pain adequately controlled at this time with APAP, will escalate pain control if needed PT/OT ordered Bilateral lower extremity weakness Patient with a two-week history of intermittent BL LE weakness leading to a few non-traumatic falls, no weakness between episodes; no bowel/bladder incontinence or saddle anesthesia to suggest cauda equina Differential includes spinal stenosis, inflammatory conditions, others Given that this symptom and patient's above symptoms have the same duration of worsening, suspicious for a unifying diagnosis like C-spine stenosis Consult ortho as above, steroids as above Fall precautions PT/OT ordered DM2 HbA1c 8.3% (07/2021) Home metformin and trulicity held on admission Continue BSG checks, sliding-scale insulin, hypoglycemic protocol Chest pain Low suspicion for ACS, patient's lateral left CP likely just part of her DJD; CP is non-exertional, EKG without overt ischemic change Initial hsTrop negative, repeat 2.9, no further trops indicated Hypomagnesemia: received mag sulfate in ED, repeat mag level in AM Iron deficiency anemia: started ferrous gluconate q48h Tobacco dependence: declined patch/gum at this time, discuss possible cessation MDD: continue home escitalopram (which is 30mg qPM rather than a split dose as listed in home meds) Palpitations: continue home metoprolol FEN: DM2 diet Code status: full code DVT ppx: SCDs Held home meds: metformin, trulicity Consults: orthopedic surgery PT/OT: ordered Dispo: med/surg (2) Diabetes type 2, uncontrolled: (3) GERD without esophagitis: (4) Hyperlipidemia: (5) Tobacco dependence: (6) Anxiety and depression: History of Present Illness Primary Care Provider: Viktoria Ballesteros MD 46yo female with a history of DM2, 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 It is primarily left scapular pain that radiates a bit towards her chest. The pain does not radiate down her arm though her left arm and hand numbness has worsened as well. Patient has noticed her pain and numbness are worse with certain neck positions. Patient's BL LE weakness has worsened over the past few weeks, leading to a few falls, though none with any trauma or injury. The BL LE weakness is intermittent and usually comes on quickly, though it doesn't last long. Denies change in bowel or bladder habits, denies saddle anesthesia. Patient has also noticed some bilateral facial numbness a couple times over the past two weeks, which is new - it always involves the entire face, happens about once an hour, and lasts only a few seconds. Patient denies fever, headache, vision changes, cough, congestion, SOB, abdominal pain, dysuria,nausea, vomiting, vertigo, or other symptoms. Allergies Allergy/AdvReac Type Severity Reaction Status Date / Time mold Allergy Severe SHORTNESS Verified 12/21/21 18:41 OF BREATH fentanyl Allergy Intermediate SKIN RASH Verified 12/21/21 18:41 morphine Allergy Intermediate RASH Verified 12/21/21 18:41 Iodinated Contrast Media AdvReac Intermediate PALPITATIONS, Verified 12/21/21 18:41 FLUSHING nicotine AdvReac Intermediate HEART Verified 12/21/21 18:41 RACES WITH PATCH oxycodone AdvReac Intermediate GI SYMPTOMS Verified 12/21/21 18:41 Home Medications Medication Instructions Recorded Confirmed Type cholecalciferol (vitamin D3) 125 5,000 unit PO QPM #90 tab 09/17/19 12/21/21 Rx mcg (5,000 unit) tablet acetaminophen 650 mg 650 mg PO Q8H PRN 02/16/21 12/21/21 History tablet,extended release aspirin 81 mg tablet,delayed 81 mg PO DAILY 02/16/21 12/21/21 History release metformin 500 mg tablet 1,000 mg PO BID #360 tab 03/12/21 12/21/21 Rx metoprolol tartrate 25 mg tablet 25 mg PO BID #60 tab 08/03/21 12/21/21 Rx blood sugar diagnostic (Accu-Chek #300 ea 08/09/21 Rx Dena Plus test strp) lancets 33 gauge (BD Ultra Fine #300 ea 08/09/21 Rx Lancets) ondansetron 4 mg disintegrating 4 mg PO Q8H PRN #30 tab 10/05/21 12/21/21 Rx tablet escitalopram oxalate 20 mg tablet 20 mg PO QPM #90 tab 12/20/21 12/21/21 Rx dulaglutide 0.75 mg/0.5 mL 0.75 mg SUBCUT WK 12/21/21 12/21/21 History subcutaneous pen injector (Trulicity) escitalopram oxalate 10 mg tablet 10 mg PO QAM 12/21/21 12/21/21 History (Lexapro) Past Med/Surg History Medical History (Updated 12/22/21 @ 10:37 by Wesly Kahn MD) Abnormal mammography Acid reflux controlled Adnexal cyst Anxiety Cervical spinal stenosis Diabetes mellitus, type 2 NIDDM Diabetes type 2, uncontrolled Elderly multigravida History of chicken pox Insulin controlled gestational diabetes mellitus (GDM) during , antepartum Irregular contractions Irregular uterine contractions Need for rhogam due to Rh negative mother state with 35 completed weeks gestation Premature atrial complexes Premature uterine contractions Supervision of elderly multigravida, antepartum Tobacco smoking affecting Surgical History H/O partial nephrectomy RIGHT (2014) FOR RENAL MASS H/O tubal ligation subsequent reversal History of colonoscopy History of dilatation and curettage History of esophagogastroduodenoscopy (EGD) History of reversal of tubal ligation Previous delivery affecting , antepartum Renal mass CANCER RIGHT-PARTIAL [id number] CHEMO/NO RADIATION F/U DR LOVETT [place] teeth extracted Family History Uncle Anemia Kidney stones Mother Asthma Breast cancer Hypertension Father Diabetes Atrial fibrillation Grandmother Diabetes Myocardial infarction Grandfather Myocardial infarction Heart disease Stroke Sister Obesity Thyroid disease Denies family history of Colon cancer Ovarian cancer Prostate cancer Colorectal cancer Social History (Updated 12/22/21 @ 10:26 by Wesly Kahn MD) Smoking Status: Current every day smoker Tobacco Type: Cigarettes Age Started Using Tobacco: 15; packs per day: 0.5; Cigarettes Per Day: 10; Second Hand Exposure: Yes (); Hx Alcohol Use: Yes Alcohol type: beer and hard liquor Alcohol Intake Frequency: Monthly or Less Hx Substance Use: Yes Substance Use Type Other:: medical marijuana Preferred Language: Kitt[place] Communication Ability: Effective Visual Impairment: No Limitations Hearing Ability: Normal 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: No Beliefs That Will Affect Care: None marital status: marital status details: Ortiz Cabrera (41) [phone] Current Living Situation: Family Current Living Situation Comment: lives at home with , son 21, and pets current occupational status: disabled Other Information That Helps Us Care for You: No Feels Safe at Home: Yes Safety Concerns: Feels Safe At This Time Childhood Exposure to Second-Hand Smoke: Yes caffeine: No Dental Care, Regularly: Yes Physical Activity Frequency: Daily Physical Activity Frequency Comment: walking, House work Seatbelt Use: always Sunscreen Use: Yes Assistive Devices: Cane Assistive Devices Comment: glasses Physical Exam Physical Exam: Constitutional: well-appearing, no acute distress HEENT: NCAT CV: regular rhythm, no murmur appreciated, extremities well-perfused, no LE edema Resp: CTABL, no wheezes/rales/rhonchi appreciated, no increased work of breathing GI: soft, nondistended, nontender, BS normoactive MSK: no gross deformities appreciated Skin: warm, dry, no rash appreciated Neuro: alert, oriented, no focal neurologic deficit appreciated, CN2-12 grossly intact, upper and lower extremity strength 5/5 bilaterally, no appreciable sensory deficits appreciated Results & Data Results & Data ([facility]) Vital Signs (Past 12 Hours) Vital Signs Temp Pulse Pulse Resp BP BP Pulse Ox 12/21/21 19:20 146/97 H 12/21/21 18:25 174/109 H 12/21/21 18:16 57 L 15 172/106 H 97 12/21/21 15:45 71 20 137/106 H 98 12/21/21 14:26 37.1 C 82 18 109/75 95 Supervising Physician Co-Signing Physician Notes Attending addendum: I have physically seen this patient, have supervised the medical residents activities, and agree with the H&P unless as otherwise noted. Assessment and Plan: Cervical degenerative disc disease/left upper extremity radiculopathy- MRI brain and C-spine reports as noted Dexamethasone 10 mg IV from the ED Continue dexamethasone at 4 mg IV every 6 hours PT/OT consults Consult orthopedic surgery Bilateral lower extremity weakness-intermittent symptoms Negative bowel or bladder findings No suggestion of multiple sclerosis or demyelinating disease on MRI of brain and cervical spine Further assessment of cervical spine disease as noted May benefit from neurology consult as well Remaining orders and notations as noted Resident Activity Tracking Resident Involvement: Resident Care Provided and Parboiler Coverage Note Care Provided: Adult Hospital Medicine
[2021-12-21] MEDS ORDERED: GLUCOSE 40% GEL 15 GM TUBE PO PRN (22:44)
[2021-12-21] MEDS ORDERED: GLUCAGON FOR INJ 1 MG VIAL SQ PRN (22:44)
[2021-12-21] MEDS ORDERED: GLUCOSE 10 TABS/TUBE PO PRN (22:44)
[2021-12-21] MEDS ORDERED: DEXTROSE 50% 50 ML SYRINGE IV PRN (22:44)
[2021-12-21] MEDS ORDERED: CARBOHYDRATES FOR HYPOGLYCEMIA PO PRN (22:44)
[2021-12-21] MEDS ORDERED: ONDANSETRON INJ 2 MG/ML 2 ML VIAL IV PRN (22:44)
[2021-12-21] MEDS: ESCITALOPRAM OXALATE 10 MG TAB PO SCH (23:55)
[2021-12-21] MEDS: METOPROLOL TARTRATE 25 MG TAB PO SCH (23:55)
[2021-12-22] MEDS: dexAMETHasone 4 MG in SYRINGE 0 ML IV SCH ×2 (01:45→07:44)
[2021-12-22] MEDS: ACETAMINOPHEN 325 MG TAB PO SCH ×4 (01:46→20:24)
[2021-12-22 06:55] LABS: Hematocrit (blood only) 35.1 % (37-47); Hemoglobin 11.7 g/dL (12.0-16.0); Immature Granulocytes # (auto) 0.02 K/uL (0.00-0.02); Immature Granulocytes % (auto) 0.2 %; Lymphocytes # (auto) 0.98 K/uL (1.2-3.4); Lymphocytes % (auto) 10.6 %; Mean Corpuscular Hemoglobin 26.4 pg (25-34); Mean Corpuscular Hgb Conc 33.3 g/dL (32-36); Mean Corpuscular Volume 79.2 fL (80-100); Mean Platelet Volume 10.4 fL (7.4-10.4); Monocytes # (auto) 0.05 K/uL (0.11-0.59); Monocytes % (auto) 0.5 %; Neutrophils # (auto) 8.16 K/uL (1.4-6.5); Neutrophils % (auto) 88.7 %; Platelet Count 267 K/uL (130-400); RDW Coefficient of Variation 15.5 % (11.5-14.5); RDW Standard Deviation 45.4 fL (36.4-46.3); Red Blood Count 4.43 M/uL (4.2-5.4); White Blood Count 9.21 K/uL (4.8-10.8)
[2021-12-22 07:14] LABS: BUN Creatinine Ratio 18.7 (10-20); Calcium 8.6 mg/dl (8.5-10.1); Creatinine Clr Calc Pharmacy 101.9 ml/min; Est GFR (African American) 112.4 ml/min; Est GFR (Non-African American) 96.9 ml/min; Magnesium 1.8 mg/dl (1.7-2.4); Potassium 4.1 mmol/L (3.5-5.1)
[2021-12-22] MEDS: FERROUS GLUCONATE 324 MG TAB PO SCH ×2 (07:45→17:46)
[2021-12-22] MEDS: ASPIRIN 81 MG ECTAB PO SCH (07:45)
[2021-12-22] MEDS: METOPROLOL TARTRATE 25 MG TAB PO SCH ×2 (07:46→20:24)
[2021-12-22] MEDS: INSULIN ASPART PER UNIT SC SCH ×4 (08:34→21:36)
[2021-12-22] MEDS ORDERED: KETOROLAC TROMETHAMINE 15 MG/ML VIAL IV ONE ×2 (09:04→17:34)
--- NOTE | 2021-12-22 10:10 | Neurology Consultation ---
Date of Consultation December 22, 2021 Assessment & Plan (1) Cervical spinal stenosis: (2) Myelopathy: (3) Cervical radiculopathy: (4) Low back pain: (5) Leg weakness: (6) Chronic cerebral ischemia: This patient is neurologically complicated : She has a history of cervical spinal stenosis post decompression and fusion at C4-5 and C5-6 , March of 2019. At that time she was having cervical radiculopathy in the left upper extremity and cervical spinal cord irritation creating leg weakness, all of which improved with surgery. Currently the patient is having similar symptoms with cervical spine pain, cervical radicular symptoms in the left upper extremity (C7) and a sensation of leg weakness likely from cervical spinal cord compression /irritation. MRI of the cervical spine shows a cervical cord lesion and significant spinal stenosis. On neurologic examination she has no actual weakness but has very brisk reflexes diffusely including her hands and feet. She has clonus and equivocal upgoing toes. the patient has a mild amount of old white matter spots on MRI of the brain consistent with chronic cerebral ischemia. Her risk factors for this include longstanding cigarette smoking, diabetes, and dyslipidemia. She probably has hypertension as well. She has already been taking and baby aspirin tablet daily. None of these lesions appear new. She does not have any history to suggest and central nervous system demyelinating disease such as multiple sclerosis. Other causes of white matter spots could be considered. Based on sensory exam in her legs a mild sensory polyneuropathy is present, which would most likely be due to diabetes. Other causes could be considered. Recommendations: 1. orthopedic spine consult - I found out that Dr. Acevedo is not in town until late next week. Therefore we have no other orthopedic or neurosurgical consultation capabilities here and the patient may need to be transferred to another institution 2. consider MRIs of the thoracic and lumbar spine. 3. stop cigarette smoking 4. ESR, B12, Lyme antibody titers, hemoglobin A1c, fasting lipid profile 5. Control blood pressure as you are doing, aiming for a mean arterial pressure of 95-100. 6. other testing or treatment will be considered after orthopedic spine consult and the above tests. Overall, I spent a total of 100 minutes with this case including review of records, review of MRI films, direct evaluation the patient at bedside, and discussion of the case with the patient and RN at bedside, and Dr. Alejandre and orthopedic surgery, including differential diagnosis and treatment options. History of Present Illness Reason for Consultation: Patient is a 46-year-old, who I was asked to see at the request of Dr. Alejandre, for neurologic consultation regarding pain and weakness. Requesting Physician: Dr. Alejandre Attending Physician: Keturah Alejandre MD History of Present Illness This patient is a 10 year history of type 2 diabetes and has been smoking pack of cigarettes every 2 days since age 15. she also has a history of dyslipidemia, Sohan's thyroiditis anxiety and depression. She has borderline hypertension. In April of 2015 she underwent right partial nephrectomy for renal cell cancer. Apparently there has been no recurrence. Patient has had low back pain since age 15 and started having cervical spine and left upper extremity pain, weakness, and numbness several years ago. In addition the patient was having weakness in her legs and her legs would "buckle" when she would walk. In March of 2019, She underwent anterior cervical diskectomy and fusion, by Dr. Lee, at C4-5 and C5-6, because of cord compression. following the surgery, her left upper extremity improved so that she did not have any pain, weakness, or numbness. Her legs were not weak anymore and she was walking well. However, she developed left posterior shoulder pain of a stabbing nature, increasing with movement, ever since that time. She has had a number of therapies and it has been under reasonable control over this past year so. Chronically, the patient has low back pain and pain which radiates into her thighs anteriorly and posteriorly. Occasionally she feels leg weakness when she walks left greater than right side. In addition, she has the left posterior shoulder pain which waxes and wanes as well. Over the last 2 weeks the patient has had worse pain in her left posterior shoulder / scapula. She has had increased pain, weakness, and numbness in her left upper extremity down to the middle 3 fingers of her left hand. In addition, she has had the bilateral leg weakness again that she had several y ears ago. She even fell once because her legs buckle. She has been having some back and chest pain and interestingly, some numbness along her jaw line bilaterally. She arrived to the emergency room December 21 at 14:26 with a temperature 37.1, pulse is 82 and regular, respiratory rate 18 and comfortable, blood pressure 109/75 with O2 saturation 95 percent. Later on in the emergency room she had elevated blood pressure readings of 137/106 and 172/106. Neurologic examination showed no actual weakness focal neurologic findings. CBC and Chem profile were. Magnesium was mildly low at 1.6 and liver was. TSH was 2.2 and urinalysis was unremarkable. Chest x-ray was unremarkable. MRI of the brain showed multiple small white matter spots consistent with old nonspecific small-vessel ischemia. I reviewed these films and believe that this is relatively mild and does not look like lesions typical a demyelinating disease such as MS. MRI of the cervical spine revealed significant spinal stenosis at C4-5 and C5-6 the site of her original fusion. There may have been some cord signal abnormality at C5-6 as well. There were multilevel degenerative changes . I reviewed these films as well. currently the patient has relieved of her left scapular pain with IV Toradol. Allergies Allergy/AdvReac Type Severity Reaction Status Date / Time mold Allergy Severe SHORTNESS Verified 12/21/21 18:41 OF BREATH fentanyl Allergy Intermediate SKIN RASH Verified 12/21/21 18:41 morphine Allergy Intermediate RASH Verified 12/21/21 18:41 Iodinated Contrast Media AdvReac Intermediate PALPITATIONS, Verified 12/21/21 18:41 FLUSHING nicotine AdvReac Intermediate HEART Verified 12/21/21 18:41 RACES WITH PATCH oxycodone AdvReac Intermediate GI SYMPTOMS Verified 12/21/21 18:41 Home Medications Medication Instructions Recorded Confirmed Type cholecalciferol (vitamin D3) 125 5,000 unit PO QPM #90 tab 09/17/19 12/21/21 Rx mcg (5,000 unit) tablet acetaminophen 650 mg 650 mg PO Q8H PRN 02/16/21 12/21/21 History tablet,extended release aspirin 81 mg tablet,delayed 81 mg PO DAILY 02/16/21 12/21/21 History release metformin 500 mg tablet 1,000 mg PO BID #360 tab 03/12/21 12/21/21 Rx metoprolol tartrate 25 mg tablet 25 mg PO BID #60 tab 08/03/21 12/21/21 Rx blood sugar diagnostic (Accu-Chek #300 ea 08/09/21 Rx Dena Plus test strp) lancets 33 gauge (BD Ultra Fine #300 ea 08/09/21 Rx Lancets) ondansetron 4 mg disintegrating 4 mg PO Q8H PRN #30 tab 10/05/21 12/21/21 Rx tablet escitalopram oxalate 20 mg tablet 20 mg PO QPM #90 tab 12/20/21 12/21/21 Rx dulaglutide 0.75 mg/0.5 mL 0.75 mg SUBCUT WK 12/21/21 12/21/21 History subcutaneous pen injector (Trulicity) escitalopram oxalate 10 mg tablet 10 mg PO QAM 12/21/21 12/21/21 History (Lexapro) Patient History Medical History (Updated 12/22/21 @ 10:37 by Wesly Kahn MD) Abnormal mammography Acid reflux controlled Adnexal cyst Anxiety Cervical spinal stenosis Diabetes mellitus, type 2 NIDDM Diabetes type 2, uncontrolled Elderly multigravida History of chicken pox Insulin controlled gestational diabetes mellitus (GDM) during , ante Irregular contractions Irregular uterine contractions Need for rhogam due to Rh negative mother state with 35 completed weeks gestation Premature atrial complexes Premature uterine contractions Supervision of elderly multigravida, antepartum Tobacco smoking affecting Surgical History H/O partial nephrectomy RIGHT (2014) FOR RENAL MASS H/O tubal ligation subsequent reversal History of colonoscopy History of dilatation and curettage History of esophagogastroduodenoscopy (EGD) History of reversal of tubal ligation Previous delivery affecting , antepartum Renal mass CANCER RIGHT-PARTIAL [id number] CHEMO/NO RADIATION F/U DR LOVETT Papillion teeth extracted Family History Uncle Anemia Kidney stones Mother Asthma Breast cancer Hypertension Father Diabetes Atrial fibrillation Grandmother Diabetes Myocardial infarction Grandfather Myocardial infarction Heart disease Stroke Sister Obesity Thyroid disease Denies family history of Colon cancer Ovarian cancer Prostate cancer Colorectal cancer Social History (Updated 12/22/21 @ 10:26 by Wesly Kahn MD) Smoking Status: Current every day smoker Tobacco Type: Cigarettes Age Started Using Tobacco: 15; packs per day: 0.5; Cigarettes Per Day: 10; Second Hand Exposure: Yes (); Hx Alcohol Use: Yes Alcohol type: beer and hard liquor Alcohol Intake Frequency: Monthly or Less Hx Substance Use: Yes Substance Use Type Other:: medical marijuana Preferred Language: [place] Communication Ability: Effective Visual Impairment: No Limitations Hearing Ability: Normal 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 Beliefs That Will Affect Care: None marital status: marital status details: Ortiz Cabrera ([phone] Current Living Situation: Family Current Living Situation Comment: lives at home with , son 21, and pets current occupational status: disabled Other Information That Helps Us Care for You: No Feels Safe at Home: Yes Safety Concerns: Feels Safe At This Time Childhood Exposure to Second-Hand Smoke: Yes caffeine: No Dental Care, Regularly: Yes Physical Activity Frequency: Daily Physical Activity Frequency Comment: walking, House work Seatbelt Use: always Sunscreen Use: Yes Assistive Devices: Cane Assistive Devices Comment: glasses Review of Systems Constitutional: + weakness; no fever and no fatigue Eyes: no diplopia, no eye pain and no worsening vision Ear, Nose, Mouth, Throat: no ear pain, no tinnitus, no hearing loss, no dizziness, no snoring, no hoarseness and no dysphagia Respiratory: no cough and no dyspnea Cardiovascular: no chest pain, no palpitations and no lightheadedness Gastrointestinal: no abdominal pain, no nausea and no vomiting Genitourinary: no dysuria, no urinary frequency and no urinary incontinence Musculoskeletal: + back pain, + neck pain and + radicular pain; no joint pain and no myalgia Integumentary: no rash and no lesions Neurologic: + gait abnormality, + localized weakness, + numbness and + headache(s); no generalized weakness, no tingling, no tremor(s), no abnormal movements, no abnormal speech, no confusion and no memory loss Psychiatric: + depression and + anxiety; no irritability, no difficulty concentrating, no confusion and no hallucinations Endocrine: no fatigue and no flushing Hematologic / Lymphatic: no easy bleeding and no easy bruising Allergy / Immunological: no urticaria and no problem reported Exam (Neuro) Physical Exam: The patient is right-handed. The patient is awake, alert, and attentive. Speech is normal without any aphasia or dysarthria. The patient can name objects, repeat phrases, and has normal spontaneous speech. Mentation and thought processes are intact, with orientation to person, place and time, and normal fund of knowledge. Attention and concentration are normal. Mood and affect are normal and appropriate. General appearance and grooming are normal. Short and long-term memory are intact. Pupils are 3 mm bilaterally and reactive to light. Extraocular eye muscles are intact without nystagmus. Visual acuity and visual parham seem normal grossly to confrontation. There are no deficits to sensation in the face in all 3 distributions of the fifth cranial nerve bilaterally. Corneal reflexes are positive bilaterally. Facial strength and symmetry was normal bilaterally. Hearing seems normal bilaterally. Palate moves well without asymmetry. There is normal sternocleidomastoid and trapezius (shoulder shrug) strength bilaterally. Tongue is midline with good strength bilaterally. Neck has a full range of motion without discomfort. There are no cervical bruits bilaterally. There are no cranial or ocular bruits. Heart is without murmur. There is a regular rhythm and rate. Cervical, thoracic, and lumbar spine are nontender to palpation. Gait was not tested but stands sitting up in bed with legs dangling is quite normal. With outstretched arms there is no drift. There are no resting, postural, or action tremors. There is no ataxia with finger to nose testing. There is good facility in the hands. No other abnormal involuntary movements are noted. Motor strength is 5/5 diffusely in the arms bilaterally including deltoids, biceps, triceps, brachioradialis, wrist flexors and extensors, trouble locater, and intrinsic hand muscles. Motor strength is 5/5 diffusely in the legs bilaterally including hip flexors, quadriceps, hamstrings, gastrocnemius, tibialis anterior, tibialis posterior, and Peroneii muscles. Toe extensors are normal and there is good bulk in the extensor digitorum brevis muscles bilaterally. The limbs have good tone without rigidity or spasticity. There is no atrophy noted in the muscles. Muscle bulk is normal, there is no tenderness to palpation, no myotonia to percussion, and no fasciculations seen. Sensory examination reveals some mild stocking decreased sensation to pinprick. The hands were spared. Reflexes are 3/4 in the biceps, triceps, brachioradialis, quadriceps, and Achilles tendons bilaterally. The patient had brisk finger flexors and 3-4 beats of clonus at the ankles bilaterally. Toes are equivocal to upgoing with plantar stimulation bilaterally, although this was subtle. Peripheral pulses are present and of normal quality distally in all 4 limbs. There is no peripheral edema noted in the limbs. Results & Data ([facility]) Vital Signs (Past 12 Hours) Vital Signs Temp Pulse Resp BP Pulse Ox 06/22/22 06:04 36.6 C 75 16 145/72 H 96 12/21/21 22:50 36.7 C 78 16 134/88 98 12/21/21 22:45 36.7 C 77 16 134/88 98 PG Care Time/CCT Total # of Minutes Spent Total Time Spent with Patient: Total time spent is greater than 50% in coordination of care (as documented) at patient's floor/unit and/or counseling patient: Coding Level of Care Code INT OBSERVATION CARE 70M LVL 3 Diagnoses Cervical spinal stenosis M48.02 Cervical radiculopathy M54.12 Low back pain M54.5 Leg weakness R29.898 Myelopathy G95.9 Chronic cerebral ischemia I67.82 Time Spent (min) 100 Comment add modifiers as able
--- NOTE | 2021-12-22 13:00 | XRay Report ---
XR shoulder LT min 2V routine HISTORY: 46 years-old Female pain acute left-sided shoulder pain COMPARISON: Chest radiograph 02/22/2019 TECHNIQUE: 3 views of the left shoulder FINDINGS: No acute fracture, dislocation, significant osteoarthritis or opaque foreign body. IMPRESSION: No acute fracture. ACT 112: Negative or not required by law. The above report was generated using voice recognition software. It may contain grammatical, syntax o r spelling errors. Electronically signed by: Bobby Lomas M.D. 12/22/2021 12:58 PM
--- NOTE | 2021-12-22 16:29 | Hospitalist Progress Note ---
Date of Service December 22, 2021 Assessment & Plan (1) Myelopathy: Plan: Patient has a history of cervical spinal stenosis and had decompression and fusion of C4-5 and C5-6 in March of 2019. At that time she was having cervical radiculopathy in the left upper extremity and cervical spinal cord irritation creating leg weakness, all of which improved with surgery. She presents to the hospital with cervical spine pain MRI of the cervical spine shows a cervical cord lesion and significant spinal stenosis. On physical exam,found to have cervical radicular symptoms in the left upper extremity (C7) and a sensation of leg weakness likely from cervical spinal cord compression /irritation. On neurologic examination she has very brisk reflexes diffusely including her hands and feet. She has clonus and equivocal upgoing toes. Neurology suggested transfer [facility], since our spine surgeon will be out of town till next week, however, the spine surgeon at [facility] unwilling to accept as inpatient. Adviced for the patient to be seen as outpatient (2) Diabetes type 2, uncontrolled: Plan: Blood glucose under good control (3) DDD (degenerative disc disease), cervical: Plan: history of cervical spinal stenosis and had decompression and fusion of C4-5 and C5-6 in March of 2019 Plan: d/c in the next 24 hrs to f/u with spine surgery outpatient Admission and Anticipated Discharge Date Admission Date: December 21, 2021 Subjective patient seen and examined, still complains of left shoulder pain, numbness Review of Systems Review of Systems: All systems reviewed are negative, apart from the ones contained in the history. Physical Exam Physical Exam: The patient is awake, alert and oriented 3, well developed and well nourished, normocephalic and atraumatic, lying in bed and in no acute distress. HEENT--PERRL, EOMI, mucous membranes and oropharynx mildly dry Neck--supple. No JVD. No bruits. Thyroid normal, trachea midline, no adenopat hy. Heart--normal S1 and S2. No murmurs, rubs or gallops. Lungs--clear bilaterally, no respiratory distress, no accessory muscle use. Abdomen--normal bowel sounds and soft. Mild epigastric and left sided abdominal pain Extremities--no cyanosis or clubbing. No edema. Dermatologic--normal skin turgor, normal color, no abnormal lymph nodes, no rash. Neurologic--cranial nerves II through XII grossly intact. clonus, left arm Rheumatologic--normal range of motion. Psychiatric--normal affect. Results & Data Results & Data ([facility]) Vital Signs (Past 12 Hours) Vital Signs Temp Pulse Resp BP Pulse Ox 12/22/21 15:26 97.9 F 71 18 110/74 98 12/22/21 06:04 97.9 F 75 16 145/72 H 96 PG Care Time/CCT Total # of Minutes Spent Total Time Spent with Patient: Total time spent is greater than 50% in coordination of care (as documented) at patient's floor/unit and/or counseling patient: Coding Level of Care Code 23689 Subseq Hosp Care Lvl 2 Diagnoses Myelopathy G95.9 Diabetes type 2, uncontrolled E11.65 DDD (degenerative disc disease), cervical M50.30 Time Spent (min) 35
[2021-12-22] MEDS: LORazepam 0.5 MG TAB PO PRN (18:30)
[2021-12-22] MEDS: ESCITALOPRAM OXALATE 10 MG TAB PO SCH (20:24)
[2021-12-22] MEDS ORDERED: CYCLOBENZAPRINE HCL 10 MG TAB PO STA (22:30)
[2021-12-23] MEDS: ACETAMINOPHEN 325 MG TAB PO SCH ×3 (01:11→13:38)
[2021-12-23] MEDS: LORazepam 0.5 MG TAB PO PRN (01:11)
--- NOTE | 2021-12-23 04:25 | Billing Data ---
Date of Service December 23, 2021 Coding Level of Care Code INT OBSERVATION CARE 70M LVL 3
[2021-12-23] MEDS: ASPIRIN 81 MG ECTAB PO SCH (08:01)
[2021-12-23] MEDS: METOPROLOL TARTRATE 25 MG TAB PO SCH (08:01)
[2021-12-23] MEDS: FERROUS GLUCONATE 324 MG TAB PO SCH (08:01)
--- NOTE | 2021-12-23 08:41 | Neurology Progress Note ---
Date of Service December 23, 2021 Assessment & Plan (1) Cervical spinal stenosis: (2) Myelopathy: (3) Cervical radiculopathy: (4) Low back pain: (5) Leg weakness: (6) Chronic cerebral ischemia: Plan: This patient is neurologically complicated : She has a history of cervical spinal stenosis post decompression and fusion at C4-5 and C5-6 , March of 2019. At that time she was having cervical radiculopathy in the left upper extremity and cervical spinal cord irritation creating leg weakness, all of which improved with surgery. Currently the patient is having similar symptoms with cervical spine pain, cervical radicular symptoms in the left upper extremity (C7) and a sensation of leg weakness likely from cervical spinal cord compression /irritation. MRI of the cervical spine shows a cervical cord lesion and significant spinal stenosis. On neurologic examination she has no actual weakness but has very brisk reflexes diffusely including her hands and feet. She has clonus and equivocal upgoing toes. this is consistent with a cervical myelopathy. the patient has a mild amount of old white matter spots on MRI of the brain consistent with chronic cerebral ischemia. Her risk factors for this include longstanding cigarette smoking, diabetes, and dyslipidemia. She probably has hypertension as well. She has already been taking a baby aspirin tablet daily. None of these lesions appear new. She does not have any history to suggest and central nervous system demyelinating disease such as multiple sclerosis. Other causes of white matter spots could be considered. Based on sensory exam in her legs a mild sensory polyneuropathy is present, which would most likely be due to diabetes. Other causes could be considered. Recommendations: 1. orthopedic spine consult - I found out that Dr. Acevedo is not in town until late next week. Otherwise, we could try to send as an outpatient to [facility] if she does not want to wait for Dr. Acevedo. I am not even certain we could get her in that soon anyway. 2. consider MRIs of the thoracic and lumbar spine , to evaluate these areas for spinal stenosis and other disease. 3. stop cigarette smoking 4. ESR, B12, Lyme antibody titers, hemoglobin A1c, fasting lipid profile 5. Control blood pressure as you are doing, aiming for a mean arterial pressure of 95-100. 6. other testing or treatment will be considered after orthopedic spine consult and the above tests. 7. I can see her as an outpatient for follow-up after she sees the orthopedic spine surgeon. Admission and Anticipated Discharge Date Admission Date: December 21, 2021 Subjective Patient has no complain of cervical spine or limb pain today. She has no new weakness or numbness. Nursing reports no new issues overnight. Blood pressure is 125/85 and she is afebrile. Apparently clinicians at [facility] did not want to take this patient in transfer and said that they would see her as an outpatient Results & Data ([facility]) Vital Signs (Past 12 Hours) Vital Signs Temp Pulse Resp BP Pulse Ox 12/23/21 07:34 36.7 C 61 17 125/85 94 12/22/21 23:16 36.6 C 75 16 108/70 98 Exam (Neuro) Physical Exam: She is awake and alert. Speech is without aphasia or dysarthria. Mood and affect seem normal appropriate. Thought processes seem intact to conversation. Extraocular eye muscles are intact without nystagmus. There is no facial droop. She was sitting up in bed without difficulty and limb strength seems symmetric. There were no abnormal involuntary movements. PG Care Time/CCT Total # of Minutes Spent Total Time Spent with Patient: Total time spent is greater than 50% in coordination of care (as documented) at patient's floor/unit and/or counseling patient: Coding Level of Care Code 61463 Subseq Hosp Care Lvl 3 Diagnoses Cervical spinal stenosis M48.02 Myelopathy G95.9 Cervical radiculopathy M54.12 Low back pain M54.5 Leg weakness R29.898 Chronic cerebral ischemia I67.82
[2021-12-23] MEDS: INSULIN ASPART PER UNIT SC SCH ×2 (08:42→12:28)
--- NOTE | 2021-12-23 14:25 | Discharge Summary ---
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 It is primarily left scapular pain that radiates a bit towards her chest. The pain does not radiate down her arm though her left arm and hand numbness has worsened as well. Patient has noticed her pain and numbness are worse with certain neck positions. Patient's BL LE weakness has worsened over the past few weeks, leading to a few falls, though none with any trauma or injury. The BL LE weakness is intermittent and usually comes on quickly, though it doesn't last long. Denies change in bowel or bladder habits, denies saddle anesthesia. Patient has also noticed some bilateral facial numbness a couple times over the past two weeks, which is new - it always involves the entire face, happens about once an hour, and lasts only a few seconds. Patient denies fever, headache, vision changes, cough, congestion, SOB, abdominal pain, dysuria,nausea, vomiting, vertigo, or other symptoms. Principal Diagnosis cervical radiculopathy Discharge Exam The patient is awake, alert and oriented 3, well developed and well nourished, normocephalic and atraumatic, lying in bed and in no acute distress. HEENT--PERRL, EOMI, mucous membranes and oropharynx mildly dry Neck--supple. No JVD. No bruits. Thyroid normal, trachea midline, no adenopathy. Heart--normal S1 and S2. No murmurs, rubs or gallops. Lungs--clear bilaterally, no respiratory distress, no accessory muscle use. Abdomen--normal bowel sounds and soft. Mild epigastric and left sided abdominal pain Extremities--no cyanosis or clubbing. No edema. Dermatologic--normal skin turgor, normal color, no abnormal lymph nodes, no rash. Neurologic--cranial nerves II through XII grossly intact. clonus, left arm Rheumatologic--normal range of motion. Psychiatric--normal affect. Discharge Data Allergies Allergy/AdvReac Type Severity Reaction Status Date / Time mold Allergy Severe SHORTNESS Verified 12/21/21 18:41 OF BREATH fentanyl Allergy Intermediate SKIN RASH Verified 12/21/21 18:41 morphine Allergy Intermediate RASH Verified 12/21/21 18:41 Iodinated Contrast Media AdvReac Intermediate PALPITATIONS, Verified 12/21/21 18:41 FLUSHING nicotine AdvReac Intermediate HEART Verified 12/21/21 18:41 RACES WITH PATCH oxycodone AdvReac Intermediate GI SYMPTOMS Verified 12/21/21 18:41 Consultations 12/21/21 20:20 ED Decision to Admit Stat 12/22/21 08:20 Consult Neurology Routine Ordered Studies 12/21/21 15:04 MR cervical spine wo/w con Stat 12/21/21 15:35 MR brain wo/w con Stat Hospital Course (1) DDD (degenerative disc disease), cervical: 46yo female with a history of DM2, 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 Left scapula pain, left arm/hand numbness Patient with a two-week history of worsening of preexisting cervical radiculopathy symptoms In ED, received dexamethasone 10mg IV x1, flexeril 10mg PO x1, and toradol 15mg IV x1, leading to an improvement in pain MRI c-spine: surgical hardware noted, moderate C6-C7 d/t posterior disc osteophyte complex, mild-mod C4-C5/C5-C6 canal stenosis, multilevel foraminal stenosis, mild increased C5-C6 cord signal MRI brain: no acute intracranial findings, but does remonstrate multiple small white matter T2 foci, with a slight size increase since 2018 (read as nonspecific and not highly suggestive of demyelinating disease) Differential includes worsening DJD, spinal stenosis, inflammatory etiologies Will consult orthopedic surgery Continue dexamethasone 4mg IV q6h Pain adequately controlled at this time with APAP, will escalate pain control if needed PT/OT ordered Bilateral lower extremity weakness Patient with a two-week history of intermittent BL LE weakness leading to a few non-traumatic falls, no weakness between episodes; no bowel/bladder incontinence or saddle anesthesia to suggest cauda equina Differential includes spinal stenosis, inflammatory conditions, others Given that this symptom and patient's above symptoms have the same duration of worsening, suspicious for a unifying diagnosis like C-spine stenosis Consult ortho as above, steroids as above Fall precautions PT/OT ordered DM2 HbA1c 8.3% (07/2021) Home metformin and trulicity held on admission Continue BSG checks, sliding-scale insulin, hypoglycemic protocol Chest pain Low suspicion for ACS, patient's lateral left CP likely just part of her DJD; CP is non-exertional, EKG without overt ischemic change Initial hsTrop negative, repeat 2.9, no further trops indicated Hypomagnesemia: received mag sulfate in ED, repeat mag level in AM Iron deficiency anemia: started ferrous gluconate q48h Tobacco dependence: declined patch/gum at this time, discuss possible cessation MDD: continue home escitalopram (which is 30mg qPM rather than a split dose as listed in home meds) Palpitations: continue home metoprolol FEN: DM2 diet Code status: full code DVT ppx: SCDs Held home meds: metformin, trulicity Consults: orthopedic surgery PT/OT: ordered Dispo: med/surg (2) Diabetes type 2, uncontrolled: (3) GERD without esophagitis: (4) Hyperlipidemia: (5) Tobacco dependence: (6) Anxiety and depression: Total Time Total Time Spent Total Time Spent (In Minutes): 35 Discharge Plan Discharge Items Patient Disposition: Home - Self-Care Reason For Visit: BACK PAIN, ARM/LEG WEAKNESS Discharge Diagnosis: cervical radiculopathy Condition on Discharge: Fair Activity: Resume your previous activity Lifting: Gradually increase as tolerated Non-emergency contact: Primary Care Provider and Neurologist Call non-emergency contact if: you have any medication questions Follow-up/Referrals: Viktoria Ballesteros MD [Primary Care Provider] - 01/24/22 11:20 am () Pro Acevedo DO [Surgeon] - ([facility], [facility], WANTS PATIENT TO CALL TO SCHEDULE HER APPOINTMENT.) Diet: Regular Addtl Attending Provider Instructions: please make appointment to see Spine/Ortho Surgery MATY Pending Studies at Discharge: No Stand-Alone Forms: My [facility], Smoking Cessation Medications and DC Order Prescriptions: New cyclobenzaprine 10 mg tablet 10 mg PO HS PRN (Reason: muscle spasm) Qty: 7 RF: 0 methylprednisolone [Medrol (Bonilla)] 4 mg tablets,dose pack 4 mg PO QID Qty: 21 RF: 0 Continued metformin 500 mg tablet 1,000 mg PO BID Qty: 360 RF: 1 metoprolol tartrate 25 mg tablet 25 mg PO BID Qty: 60 RF: 5 (DME) Accu-Chek Dena Plus test strp Strip See Rx Instructions .ROUTE .MEDSUPPLY Qty: 300 RF: 3 (DME) lancets [BD Ultra Fine Lancets] 33 gauge misc See Rx Instructions .ROUTE .MEDSUPPLY Qty: 300 RF: 3 ondansetron 4 mg tablet,disintegrating 4 mg PO Q8H PRN (Reason: nausea and vomiting) Qty: 30 RF: 0 escitalopram oxalate 20 mg tablet 20 mg PO QPM Qty: 90 RF: 3 cholecalciferol (vitamin D3) 125 mcg (5,000 unit) tablet 5,000 unit PO QPM Qty: 90 RF: 3 aspirin 81 mg Tablet,Delayed Release (Dr/Ec) 81 mg PO DAILY RF: 0 acetaminophen 650 mg Tablet Extended Release 650 mg PO Q8H PRN (Reason: Pain) RF: 0 escitalopram oxalate [Lexapro] 10 mg tablet 10 mg PO QAM RF: 0 Trulicity 0.75 mg/0.5 mL pen injector 0.75 mg subcut WK RF: 0 Discharge Orders: Discharge Order (Routine); Ordered 12/23/21 Ordered By: Keturah Ricardo/Other Patient Handouts: Understanding Spinal Cord Disease, Anatomy of a Normal Spine Admission Data Admit Date/Time: 12/21/21 21:38 Attending Provider: Keturah Alejandre Admit Provider: Ever Mtz Primary Care Provider: Viktoria Ballesteros V. Other Providers: Tashi Moran Emile Other Interventions: Discharge Summary Assessment (RN) Last Done: 12/23/21 13:31 Coding Level of Care Code D/C DAY MANAGEMENT >30 MINS Diagnoses DDD (degenerative disc disease), cervical M50.30 Diabetes type 2, uncontrolled E11.65 GERD without esophagitis K21.9 Hyperlipidemia E78.5 Tobacco dependence F17.200 Anxiety and depression F41.9; F32.9 Time Spent (min) 35
== END 2021-12-23 13:59 | disposition home or self-care (01) ==
LOC: 3E 14:25 → ED 14:25 → SUATTDRO 21:38 → 3E 22:23

== ENCOUNTER 2022-07-08 06:13 | Observation (INO) ==
--- NOTE | 2022-06-08 11:14 | PAT Medication Instructions ---
Medication Instructions Date of Service June 08, 2022 Home Medications Medication Instructions Recorded blood sugar diagnostic (Accu-Chek #300 ea 08/09/21 Dena Plus test strips) lancets 33 gauge (BD Ultra Fine #300 ea 08/09/21 Lancets) cyclobenzaprine 10 mg tablet 10 mg PO TID PRN muscle spasm #20 02/02/22 tabs ketorolac 10 mg tablet 10 mg PO Q8H PRN pain #20 tabs 02/03/22 escitalopram oxalate 10 mg tablet 10 mg PO QAM #90 tabs 03/15/22 (Lexapro) metoprolol tartrate 25 mg tablet 25 mg PO BID #60 tabs 04/11/22 lorazepam 0.5 mg tablet 0.5 mg PO DAILY PRN anxiety #10 04/28/22 tabs ondansetron 4 mg disintegrating 4 mg PO Q8H PRN nausea and 04/28/22 tablet vomiting #30 tabs rosuvastatin 10 mg tablet 10 mg PO DAILY #90 tabs 04/28/22 cholecalciferol (vitamin D3) 1,250 50,000 unit PO WK #12 caps 05/02/22 mcg (50,000 unit) capsule metformin 500 mg tablet,extended 1,000 mg PO BID #360 tabs 05/03/22 release 24 hr dulaglutide 1.5 mg/0.5 mL 1.5 mg (0.5 mL) subcut Q7D #2 mL 05/10/22 subcutaneous pen injector acetaminophen 650 mg tablet,extended release 650 mg PO Q8H PRN Pain aspirin 81 mg tablet,delayed release 81 mg PO QAM cyclobenzaprine 10 mg tablet 10 mg PO TID PRN muscle spasm ketorolac 10 mg tablet 10 mg PO Q8H PRN pain escitalopram oxalate 10 mg tablet (Lexapro) 10 mg PO QAM pantoprazole 40 mg tablet,delayed release 40 mg PO QAM metoprolol tartrate 25 mg tablet 25 mg PO BID lorazepam 0.5 mg tablet 0.5 mg PO DAILY PRN anxiety ondansetron 4 mg disintegrating tablet 4 mg PO Q8H PRN nausea and vomiting rosuvastatin 10 mg tablet 10 mg PO DAILY cholecalciferol (vitamin D3) 1,250 mcg (50,000 unit) capsule 50,000 unit PO WK cholecalciferol (vitamin D3) 125 mcg (5,000 unit) tablet 5,000 unit PO HS metformin 500 mg tablet,extended release 24 hr 1,000 mg PO BID dulaglutide 1.5 mg/0.5 mL subcutaneous pen injector 1.5 mg (0.5 mL) subcut Q7D Continue as directed dulaglutide 1.5 mg/0.5 mL subcutaneous pen injector 1.5 mg (0.5 mL) subcut Q7D ASK your surgeon for instructions ketorolac 10 mg tablet 10 mg PO Q8H PRN pain ASK your prescriber and surgeon aspirin 81 mg tablet,delayed release 81 mg PO QAM DO NOT take the morning of surgery cyclobenzaprine 10 mg tablet 10 mg PO TID PRN muscle spasm cholecalciferol (vitamin D3) 1,250 mcg (50,000 unit) capsule 50,000 unit PO WK metformin 500 mg tablet,extended release 24 hr 1,000 mg PO BID Take morning of surgery With a small sip of water, OTHERWISE NOTHING TO EAT OR DRINK AFTER MIDNIGHT: acetaminophen 650 mg tablet,extended release 650 mg PO Q8H PRN Pain (if needed) escitalopram oxalate 10 mg tablet (Lexapro) 10 mg PO QAM pantoprazole 40 mg tablet,delayed release 40 mg PO QAM metoprolol tartrate 25 mg tablet 25 mg PO BID lorazepam 0.5 mg tablet 0.5 mg PO DAILY PRN anxiety (if needed) ondansetron 4 mg disintegrating tablet 4 mg PO Q8H PRN nausea and vomiting (if needed) rosuvastatin 10 mg tablet 10 mg PO DAILY Take evening before surgery acetaminophen 650 mg tablet,extended release 650 mg PO Q8H PRN Pain (if needed) cyclobenzaprine 10 mg tablet 10 mg PO TID PRN muscle spasm (if needed) metoprolol tartrate 25 mg tablet 25 mg PO BID lorazepam 0.5 mg tablet 0.5 mg PO DAILY PRN anxiety (if needed) ondansetron 4 mg disintegrating tablet 4 mg PO Q8H PRN nausea and vomiting (if needed) cholecalciferol (vitamin D3) 125 mcg (5,000 unit) tablet 5,000 unit PO HS metformin 500 mg tablet,extended release 24 hr 1,000 mg PO BID Other Notes If you have any questions please call us at [phone] or [phone] or [phone] or [phone]
--- NOTE | 2022-06-14 10:43 | Anesthesiology Consultation ---
Date of Service June 14, 2022 Assessment & Plan (1) Encounter for pre-operative examination: Chart Review Chart Review: Acceptable Risk for Surgery (pending 06/17/22 PCP clearance ) and Patient seen in Pre Admission Testing -Awaiting PCP clearance 06/17/22 - Check BSG AM DOS - Check test AM DOS Pain medications cause nausea for patient- may need anti-nausea meds through perioperative peroid Per PAT appt on 06/14/22, patient denies any recent travel or large group activities. Pt is vaccinated for Covid. Will leave to surgeon's discretion if preop Covid testing needed. Educated on importance of using Covid precautions one week prior to surgery Teaching & Discussion Pre-Anesthesia Teaching/Discussion Notes: Instructed NPO after midnight before surgery,except medications with 15 cc of water. Medication instructions provided according to the PAT guidelines. History Surgery Operation Date: 07/08/22 12:25 Proposed Procedures p C6-C7 Anterior Cervical Discectomy and Fusion, Spinal Cord Monitoring - Pro Acevedo, Height/Weight Height: 5 ft 4 in Weight: 84.9 kg Allergies Allergy/AdvReac Type Severity Reaction Status Date / Time mold Allergy Severe SHORTNESS Verified 06/08/22 09:27 OF BREATH fentanyl Allergy Intermediate SKIN RASH Verified 06/08/22 09:27 morphine Allergy Intermediate RASH Verified 06/08/22 09:27 Iodinated Contrast Media AdvReac Intermediate PALPITATIONS, Verified 06/08/22 09:27 FLUSHING nicotine AdvReac Intermediate HEART Verified 06/08/22 09:27 RACES WITH PATCH oxycodone AdvReac Intermediate GI SYMPTOMS Verified 06/08/22 09:27 Medications Home Medications Medication Instructions Recorded Confirmed Last Taken acetaminophen 650 mg 650 mg PO Q8H PRN Pain 02/16/21 06/08/22 02/16/21 09:00 tablet,extended release 1625mg/2.5pills aspirin 81 mg tablet,delayed 81 mg PO QAM 02/16/21 06/08/22 03/21/22 release blood sugar diagnostic (Accu-Chek #300 ea 08/09/21 06/08/22 Unknown Dena Plus test strips) lancets 33 gauge (BD Ultra Fine #300 ea 08/09/21 06/08/22 Unknown Lancets) cyclobenzaprine 10 mg tablet 10 mg PO TID PRN muscle spasm #20 02/02/22 06/08/22 Unknown tabs ketorolac 10 mg tablet 10 mg PO Q8H PRN pain #20 tabs 02/03/22 06/08/22 Unknown escitalopram oxalate 10 mg tablet 10 mg PO QAM #90 tabs 03/15/22 06/08/22 04/03/22 (Lexapro) metoprolol tartrate 25 mg tablet 25 mg PO BID #60 tabs 04/11/22 06/08/22 Unknown lorazepam 0.5 mg tablet 0.5 mg PO DAILY PRN anxiety #10 04/28/22 06/08/22 Unknown tabs ondansetron 4 mg disintegrating 4 mg PO Q8H PRN nausea and 04/28/22 06/08/22 Unknown tablet vomiting #30 tabs rosuvastatin 10 mg tablet 10 mg PO DAILY #90 tabs 04/28/22 06/08/22 Unknown cholecalciferol (vitamin D3) 1,250 50,000 unit PO WK #12 caps 05/02/22 06/08/22 Unknown mcg (50,000 unit) capsule cholecalciferol (vitamin D3) 125 5,000 unit PO HS 05/02/22 06/08/22 Unknown mcg (5,000 unit) tablet metformin 500 mg tablet,extended 1,000 mg PO BID #360 tabs 05/03/22 06/08/22 Unknown release 24 hr dulaglutide 1.5 mg/0.5 mL 1.5 mg (0.5 mL) subcut Q7D #2 mL 05/10/22 06/08/22 Unknown subcutaneous pen injector pantoprazole 40 mg tablet,delayed See Rx Instructions .Route 06/13/22 Unknown release .COMPLEX #180 tabs Past Medical History Medical History Acid reflux Controlled and stable Adnexal cyst Stable - no current issues Anxiety 06/2022- seen in [place] ER for chest pain, was told it was anxiety related - has follow up with PCP on 06/17/22 Cervical spinal stenosis Chronic bronchitis Stable Chronic cerebral ischemia - Mild amount of old white matter spots on MRI of brain consistent with chronic cerebral ischemia per neuro consultation 12/23/21 -No known CVAs per patient- takes ASA daily per PCP recommendations; does not follow with neuro 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 Hypothyroidism induced- resolved two years ago with Premature atrial complexes Palpitations on metoprolol- seen in ER recently for anxiety- following up with PCP 06/17/22 (no statue carver) Exercise / Class Metabolic Activity III < 4 Walking/Shop/Light housework (one flight of stairs- no chest pain, mild SOB ) Past Family History Family History Uncle Anemia Kidney stones Mother Asthma Breast cancer Hypertension Father Diabetes Atrial fibrillation Grandmother Diabetes Myocardial infarction Grandfather Myocardial infarction Heart disease Stroke Sister Obesity Thyroid disease Denies family history of Colon cancer Ovarian cancer Prostate cancer Colorectal cancer Past Surgical History Surgical History H/O partial nephrectomy RIGHT (2014) FOR RENAL MASS H/O tubal ligation subsequent reversal History of colonoscopy History of dilatation and curettage History of esophagogastroduodenoscopy (EGD) History of reversal of tubal ligation Hx of fusion of cervical spine "doesn't have good full ROM, can go up and down and side to side, just not far" Previous delivery affecting , antepartum Renal mass CANCER RIGHT-PARTIAL [id number] CHEMO/NO RADIATION F/U DR LOVETT S/P epidural steroid injection cervical [place] teeth extracted Past Anesthesia History No Hx of Anesthesia Complications and No Family Hx of Anesthesia Complications History of PONV No Hx of PONV Social History Smoking Status: Current every day smoker tobacco type: cigarettes Smoking cigarettes per day: 10 PER DAY- ADVISED Do You Dip or Chew Tobacco: No Hx Alcohol Use: Yes Alcohol type: beer alcohol intake frequency: holidays/special occasions only Hx Substance Use: Yes (smokes medical marijuana for anxiety - ADVISED) substance use type: marijuana Substance Use Type Other:: medical marijuana Review of Systems Recent chest pain/palpitations- seen in ER 06/05/22- felt related to anxiety- no issues since. Patient denies shortness of breath at rest, cough, wheezing. No hx of seizures, stroke, MS, apnea/snoring. No hx of blood clots or blood transfusions Physical Exam Vital Signs VITALS BP 98/78 (manually- baseline per patient- denies dizziness or syncope) P 84 TEMP 98.0 SP02 98% RESP 16 Constitutional no acute distress ENMT Mouth: no TMJ clicking Thyromental Distance: < 3.5 Finger Breadths (3.0) Mallampati Class: II Neck + limited neck extension Respiratory normal respiratory effort; no respiratory distress Auscultation: lungs clear to auscultation bilaterally; no wheezes Cardiovascular Rate/Rhythm: regular rate and regular rhythm Heart Sounds: no murmur Vessels: no carotid bruit Musculoskeletal Spine: + pain with cervical ROM Extremities: extremities normal to inspection Psychiatric Orientation: alert Lab Results Anesthesia Preop Results Results Anesthesia Widget: WBC 8.56 K/ul (4.8-10.8) 06/14/22 Hgb 13.5 g/dl (12.0-16.0) 06/14/22 Hct 40.9 % (34.1-44.9) 06/14/22 Plt 230 K/uL (130-400) 06/14/22 Na 135 mmol/L (136-145) L 06/05/22 K 4.0 mmol/L (3.5-5.1) 06/05/22 Cl 102 mmol/L (98-107) 06/05/22 CO2 28 mmol/L (21-32) 06/05/22 BUN 7 mg/dl (6-23) 06/05/22 Creat 0.80 mg/dl (0.6-1.2) 06/05/22 Glucose Level 194 mg/dl (70-99(Fasting)) H 06/05/22 PT 10.0 Seconds (9.0-12.0) 06/05/22 PTT 27.1 Seconds (21.0-31.0) 06/05/22 INR 0.9 (0.9-1.1) 06/05/22 TSH 3.539 uIu/ml (0.300-4.500) 06/05/22 HA1c 6.6 % (4.5-5.6) H 04/28/22 Urine Color Yellow 06/14/22 Urine Appearance Clear (Clear) 06/14/22 Urine pH 5.0 (4.5-7.5) 06/14/22 Urine Specific [place] 1.024 (1.000-1.030) 06/14/22 Urine Protein Negative (Negative) 06/14/22 Urine Glucose (UA) Trace (Negative) H 06/14/22 Urine Ketones Trace (Negative) H 06/14/22 Urine Blood Negative (Negative) 06/14/22 Urine Nitrite Negative (Negative) 06/14/22 Urine Bilirubin Negative (Negative) 06/14/22 Urine Urobilinogen Negative (Negative) 06/14/22 Urine Leukocyte Esterase Negative (Negative) 06/14/22 Blood Type O Negative 06/14/22 Antibody Screen NEGATIVE 06/14/22 Testing Electrocardiogram Date: 06/14/22 Findings: + NSR @ (72bpm ) Low voltage QRS Chest X-Ray Date: 06/05/22 Findings: + NAD Other Testing Brain MRI 12/21/21= No acute intracranial findings. No intracranial mass or pathologic enhancement. Multiple small white matter T2 hyperintense foci. Slight increase since MRI of September 01, 2017. These are nonspecific. Although within the differential, the appearance is not highly suggestive of demyelinating disease. COVID-19 Risk Screen Screening Information COVID-19 Screen Date: 06/14/22 Exposure 21 Days Family/Household +COVID Last 21 Days: No Exposure 10 Days Any COVID Exposure Last 10 Days: No Symptoms Last 10 Days Experienced COVID Sx Last 10 Days: No + COVID 0-90 Days COVID + in Last 0-90 Days: No Risk Plan COVID Risk Plan: No Risk Identified Patient Education COVID Preop Screening Education Complete: Yes
--- NOTE | 2022-07-07 11:50 | History & Physical Report ---
Date of Service July 07, 2022 Assessment & Plan (1) Herniation of cervical intervertebral disc with radiculopathy: Plan: patient has motor sensory deficit C7 with severe stenosis requiring urgent decompression. recommending anterior disectomy and fusion C6-7. This is medically unrgent not advisable to wait. History of Present Illness Chief Complaint: neck and arm pain Primary Care Provider: Viktoria Ballesteros MD severe arm pain and weakness for 6 months. failed nonoperative care Allergies Allergy/AdvReac Type Severity Reaction Status Date / Time mold Allergy Severe SHORTNESS Verified 06/22/22 14:27 OF BREATH fentanyl Allergy Intermediate SKIN RASH Verified 06/22/22 14:27 morphine Allergy Intermediate RASH Verified 06/22/22 14:27 Iodinated Contrast Media AdvReac Intermediate PALPITATIONS, Verified 06/22/22 14:27 FLUSHING nicotine AdvReac Intermediate HEART Verified 06/22/22 14:27 RACES WITH PATCH oxycodone AdvReac Intermediate GI SYMPTOMS Verified 06/22/22 14:27 Home Medications Medication Instructions Recorded Confirmed Type acetaminophen 650 mg 650 mg PO Q8H PRN Pain 02/16/21 06/22/22 History tablet,extended release aspirin 81 mg tablet,delayed 81 mg PO QAM 02/16/21 06/22/22 History release blood sugar diagnostic (Accu-Chek #300 ea 08/09/21 06/22/22 Rx Dena Plus test strips) lancets 33 gauge (BD Ultra Fine #300 ea 08/09/21 06/22/22 Rx Lancets) cyclobenzaprine 10 mg tablet 10 mg PO TID PRN muscle spasm #20 02/02/22 06/22/22 Rx tabs ketorolac 10 mg tablet 10 mg PO Q8H PRN pain #20 tabs 02/03/22 06/22/22 Rx escitalopram oxalate 10 mg tablet 10 mg PO QAM #90 tabs 03/15/22 06/22/22 Rx (Lexapro) metoprolol tartrate 25 mg tablet 25 mg PO BID #60 tabs 04/11/22 06/22/22 Rx lorazepam 0.5 mg tablet 0.5 mg PO DAILY PRN anxiety #10 04/28/22 06/22/22 Rx tabs cholecalciferol (vitamin D3) 125 5,000 unit PO HS 05/02/22 06/22/22 History mcg (5,000 unit) tablet metformin 500 mg tablet,extended 1,000 mg PO BID #360 tabs 05/03/22 06/22/22 Rx release 24 hr dulaglutide 1.5 mg/0.5 mL 1.5 mg (0.5 mL) subcut Q7D #2 mL 05/10/22 06/22/22 Rx subcutaneous pen injector pantoprazole 40 mg tablet,delayed See Rx Instructions .Route 06/13/22 06/22/22 Rx release .COMPLEX #180 tabs ondansetron 4 mg disintegrating 4 mg PO Q8H PRN nausea and 07/05/22 Rx tablet vomiting #30 tabs Past Med/Surg History Medical History Acid reflux Adnexal cyst Anxiety Cervical spinal stenosis Chronic bronchitis Chronic cerebral ischemia Clear cell carcinoma of kidney DDD (degenerative disc disease), cervical DDD (degenerative disc disease), lumbar Diabetes mellitus, type 2 Environmental and seasonal allergies History of COVID-19 Hypothyroidism Premature atrial complexes Surgical History H/O partial nephrectomy H/O tubal ligation History of colonoscopy History of dilatation and curettage History of esophagogastroduodenoscopy (EGD) History of reversal of tubal ligation Hx of fusion of cervical spine Previous delivery affecting , antepartum Renal mass S/P epidural steroid injection [place] teeth extracted Family History Uncle Anemia Kidney stones Mother Asthma Breast cancer Hypertension Father Diabetes Atrial fibrillation Grandmother Diabetes Myocardial infarction Grandfather Myocardial infarction Heart disease Stroke Sister Obesity Thyroid disease Denies family history of Colon cancer Ovarian cancer Prostate cancer Colorectal cancer Social History Smoking Status: Current every day smoker Tobacco Type: Cigarettes Age Started Using Tobacco: 15; packs per day: 0.5; Cigarettes Per Day: 10 PER DAY- ADVISED; Second Hand Exposure: No; Hx Alcohol Use: Yes Alcohol type: beer Alcohol Intake Frequency: Monthly or Less Hx Substance Use: Yes (smokes medical marijuana for anxiety - ADVISED) Substance Use Type Other:: medical marijuana Preferred Language: Icelandic Communication Ability: Effective Visual Impairment: No Limitations Hearing Ability: Normal 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 Beliefs That Will Affect Care: None marital status: marital status details: Ortiz Cabrera (39) [phone] Current Living Situation: Spouse and Family Current Living Situation Comment: lives at home with , son 21, and pets current occupational status: disabled Feels Safe at Home: Yes Childhood Exposure to Second-Hand Smoke: Yes caffeine: No Dental Care, Regularly: Yes Physical Activity Frequency: Daily Physical Activity Frequency Comment: walking, House work Seatbelt Use: always Sunscreen Use: Yes Assistive Devices: Glasses Physical Exam Physical Exam: spurlings to the L 4/5 tricep on the L with sensory deficit
[~2022-07-08 06:13] MED LIST changes: +ACETAMINOPHEN 500 MG TAB PO SCH; -CITRIC ACID/SODIUM CITRATE 15 ML UDC PO SCH; +CeleBREX 200 MG CAP PO SCH; +GABAPENTIN 900 MG DOSE PO SCH; +LR 15ML/HR IV SCH; +ceFAZolin 2000MG 2,000 MG/15 ML SYR IV SCH
[2022-07-08] MEDS ORDERED: MIDAZOLAM HCL 1 MG/ML 2ML VIAL ONE (06:42)
[2022-07-08] MEDS ORDERED: fentaNYL citrate 100 MCG/2 ML VIAL ONE ×2 (06:42→09:54)
[2022-07-08] MEDS ORDERED: KETAMINE 50 MG/5 ML SYRINGE ONE (06:51)
[2022-07-08] MEDS ORDERED: HYDROmorphone INJ 2 MG/ML SYR/VIAL ONE (06:52)
[2022-07-08] MEDS ORDERED: ceFAZolin 330 MG/ML 1 GM VIAL ONE (06:58)
[2022-07-08] MEDS ORDERED: ONDANSETRON INJ 2 MG/ML 2 ML VIAL ONE (07:01)
[2022-07-08] MEDS ORDERED: DEXAMETHASONE SOD INJ 4 MG/ML VIAL ONE (07:01)
[2022-07-08] MEDS ORDERED: PROPOFOL IV EMULSION 10 MG/ML 20 ML VIAL IV ONE (07:01)
[2022-07-08] MEDS ORDERED: ROCURONIUM BROMIDE 10 MG/ML 5 ML VIAL IV ONE (07:01)
[2022-07-08] MEDS ORDERED: LIDOCAINE 2% MPF LOCAL 5 ML VIAL INFIL ONE (07:01)
[2022-07-08] MEDS ORDERED: SCOPOLAMINE 1 MG TDSY TD ONE ×2 (07:31→07:45)
--- NOTE | 2022-07-08 07:35 | History & Physical Bridge Note ---
Date of Service July 08, 2022 History & Physical Bridge Note I have examined the patient, reviewed the History & Physical and in the interval since the performance of the History & Physical I have noted the following changes of clinical significance: no changes noted
--- NOTE | 2022-07-08 07:36 | History & Physical Report ---
Date of Service July 08, 2022 Assessment & Plan (1) Herniation of cervical intervertebral disc with radiculopathy: Plan: C6-C7 anterior cervical discectomy and fusion History of Present Illness Chief Complaint: Neck and arm pain Primary Care Provider: Viktoria Ballesteros MD This is a 46-year-old female presents with chronic persistent neck and arm pain after failing course of nonoperative care she is here for surgical intervention. Allergies Allergy/AdvReac Type Severity Reaction Status Date / Time mold Allergy Severe SHORTNESS Verified 07/08/22 06:43 OF BREATH fentanyl Allergy Intermediate SKIN RASH Verified 07/08/22 06:43 morphine Allergy Intermediate RASH Verified 07/08/22 06:43 Iodinated Contrast Media AdvReac Intermediate PALPITATIONS, Verified 07/08/22 06:43 FLUSHING nicotine AdvReac Intermediate HEART Verified 07/08/22 06:43 RACES WITH PATCH oxycodone AdvReac Intermediate GI SYMPTOMS Verified 07/08/22 06:43 Home Medications Medication Instructions Recorded Confirmed Type acetaminophen 650 mg 650 mg PO Q8H PRN Pain 02/16/21 07/08/22 History tablet,extended release aspirin 81 mg tablet,delayed 81 mg PO QAM 02/16/21 07/08/22 History release blood sugar diagnostic (Accu-Chek #300 ea 08/09/21 06/22/22 Rx Dena Plus test strips) lancets 33 gauge (BD Ultra Fine #300 ea 08/09/21 06/22/22 Rx Lancets) cyclobenzaprine 10 mg tablet 10 mg PO TID PRN muscle spasm #20 02/02/22 07/08/22 Rx tabs ketorolac 10 mg tablet 10 mg PO Q8H PRN pain #20 tabs 02/03/22 07/08/22 Rx escitalopram oxalate 10 mg tablet 10 mg PO QAM #90 tabs 03/15/22 07/08/22 Rx (Lexapro) metoprolol tartrate 25 mg tablet 25 mg PO BID #60 tabs 04/11/22 07/08/22 Rx lorazepam 0.5 mg tablet 0.5 mg PO DAILY PRN anxiety #10 04/28/22 07/08/22 Rx tabs cholecalciferol (vitamin D3) 125 5,000 unit PO HS 05/02/22 07/08/22 History mcg (5,000 unit) tablet metformin 500 mg tablet,extended 1,000 mg PO BID #360 tabs 05/03/22 07/08/22 Rx release 24 hr dulaglutide 1.5 mg/0.5 mL 1.5 mg (0.5 mL) subcut Q7D #2 mL 05/10/22 07/08/22 Rx subcutaneous pen injector pantoprazole 40 mg tablet,delayed See Rx Instructions .Route 06/13/22 07/08/22 Rx release .COMPLEX #180 tabs ondansetron 4 mg disintegrating 4 mg PO Q8H PRN nausea and 07/05/22 07/08/22 Rx tablet vomiting #30 tabs Past Med/Surg History Medical History Acid reflux Adnexal cyst Anxiety Cervical spinal stenosis Chronic bronchitis Chronic cerebral ischemia Clear cell carcinoma of kidney DDD (degenerative disc disease), cervical DDD (degenerative disc disease), lumbar Diabetes mellitus, type 2 Environmental and seasonal allergies History of COVID-19 Hypothyroidism Premature atrial complexes Surgical History H/O partial nephrectomy H/O tubal ligation History of colonoscopy History of dilatation and curettage History of esophagogastroduodenoscopy (EGD) History of reversal of tubal ligation Hx of fusion of cervical spine Previous delivery affecting , antepartum Renal mass S/P epidural steroid injection [place] teeth extracted Family History Uncle Anemia Kidney stones Mother Asthma Breast cancer Hypertension Father Diabetes Atrial fibrillation Grandmother Diabetes Myocardial infarction Grandfather Myocardial infarction Heart disease Stroke Sister Obesity Thyroid disease Denies family history of Colon cancer Ovarian cancer Prostate cancer Colorectal cancer Social History Smoking Status: Current every day smoker Tobacco Type: Cigarettes Age Started Using Tobacco: 15; packs per day: 0.5; Cigarettes Per Day: 15; Second Hand Exposure: No; Do You Dip or Chew Tobacco: No; Tobacco Cessation Education Requested by Patient: No Hx Alcohol Use: Yes Alcohol type: beer Alcohol Intake Frequency: Monthly or Less Hx Substance Use: Yes (medical marijuana) Substance Use Type Other:: medical marijuana Preferred Language: [place]orese Communication Ability: Effective Visual Impairment: No Limitations Hearing Ability: Normal Dental Technician Metal Required: No Beliefs That Will Affect Care: None marital status: marital status details: Ortiz Cabrera (39) [phone] Current Living Situation: Spouse and Family Current Living Situation Comment: lives at home with , son 21, and pets current occupational status: disabled Other Information That Helps Us Care for You: No Feels Safe at Home: Yes Safety Concerns: Feels Safe At This Time Childhood Exposure to Second-Hand Smoke: Yes caffeine: No Dental Care, Regularly: Yes Physical Activity Frequency: Daily Physical Activity Frequency Comment: walking, House work Seatbelt Use: always Sunscreen Use: Yes Assistive Devices: Glasses Physical Exam Physical Exam: Patient is alert and oriented Heart regular rhythm Lungs clear Results & Data Results & Data ([facility]) Vital Signs (Past 12 Hours) Vital Signs Temp Pulse Resp BP Pulse Ox O2 Del Method 07/08/22 06:57 36.9 C 77 20 126/73 96 Room Air
[2022-07-08] MEDS ORDERED: PHENYLEPHRINE 100MCG/ML 5ML SYR ONE (08:11)
[2022-07-08] MEDS ORDERED: FLOSEAL HEMOSTATIC MATRIX 10ML TOP ONE (08:24)
[2022-07-08] MEDS ORDERED: ALBUTEROL HFA INHALER 8.5 GM INH ONE (08:28)
[2022-07-08] MEDS ORDERED: GLYCOPYRROLATE 0.2 MG/ML VIAL ONE (08:52)
[2022-07-08] MEDS ORDERED: NEOSTIGMINE METHYLSULFATE 1 MG/ML 10ML VIAL ONE (08:52)
--- NOTE | 2022-07-08 09:01 | Operative Report ---
Post Operative Report Pre & Post Diagnosis Operation Date: 07/08/22 07:45 Pre-Op Diagnosis: Cervical disc herniation with radiculopathy Post-Op Diagnosis: Same I identified the patient and participated in the time-out.: Yes Procedure Operation Date: 07/08/22 07:45 Actual Procedures #1 anterior cervical discectomy with bilateral foraminotomies C6-C7. #2 anterior cervical arthrodesis C6-C7. #3 placement of 9 mm spiral cage with I factor C6-C7. #4 placement of K2 M plate and screws across C6-C7. Surgeon Pro Acevedo, DO Bradley Linebacker Crewmember None Estimated Blood Loss 5 Findings Consistent with Post-Op Diagnosis Specimens None Indications This is a 46-year-old female who presents with above-mentioned diagnosis of failed extensive course of nonoperative care is here for surgical invention. Description of Procedure Patient was met with identified informed consent obtained. Patient was then taken to the operative suite underwent a patient placed in supine position Brayden table with head in the [place] screwhead stoner and polisher. All bony prominences well- padded eyes inspected to ensure no external pressure placed upon them. This point the anterior cervical spine was prepped and draped no sterile fashion. With the assistance of fluoroscopy identify the C6-C7 level and a transverse incision was placed along the right anterior aspect of the cervical spine overlying this region. Blunt dissection with assistance of bipolar electrocautery was then performed down to and exposing the anterior cervical spine at C6-C7. Self-retaining retractors placed. Then performed a complete discectomy of C6-C7 out to the uncovertebral joints bilaterally. [place] distracting pins utilized to assist in visualization. Removed all posterior annular fibers longitudinal ligament bilateral foraminotomies performed. Endplates burred to subcortical being bone and a 9 mm spiral cage with I factor tapped in position. Distracting apparatus was removed and a K2 plate and screws applied with the assistance of fluoroscopy. The incision was then copiously irrigated explored to ensure no damage to surrounding structures or remaining bleeding. 10 round TASIA drain inserted. The incision was then closed with 2 Vicryl in the fascia and 4 Monocryl for fascial closure. Steri-Strips dressings placed. Patient waken taken to PACU in stable condition. Please note spinal cord monitoring was utilized at the procedure no changes noted. I attest to the content of the Intraoperative Record and any orders documented therein. Any exceptions are noted below.
--- NOTE | 2022-07-08 09:52 | Fluoroscopy Report ---
FL cervical 2-3V CLINICAL HISTORY: C6-C7 ACDF COMPARISON STUDY: Cervical spine MRI December 21, 2021. FLUOROSCOPY TIME: 18.5 seconds. FLUOROSCOPIC IMAGES: 3 FINDINGS: Endotracheal tube is partially imaged. Surgical drain is in place. Previous C4-C5 and C5-C6 anterior discectomies are noted. There is interval C6-C7 anterior discectomy and fusion. IMPRESSION: Fluoroscopy provided during C6-C7 anterior discectomy fusion. ACT 112: Negative or not required by law. Electronically signed by: Ricky Mendoza M.D. 07/08/2022 9:51 AM
[2022-07-08] MEDS ORDERED: HYDROmorphone INJ 1 MG/ML SYRINGE IV PRN (09:57)
[2022-07-08] MEDS ORDERED: fentaNYL citrate 100 MCG/2 ML VIAL IV PRN (09:57)
[2022-07-08] MEDS ORDERED: ONDANSETRON INJ 2 MG/ML 2 ML VIAL IV PRN ×2 (09:57→11:24)
[2022-07-08] MEDS ORDERED: ATROPINE SULFATE 0.1 MG/ML 10ML SYR IV PRN (09:57)
[2022-07-08] MEDS ORDERED: ePHEDrine sulfate 50 MG/ML AMP IV PRN (09:57)
[2022-07-08] MEDS ORDERED: PHARMACY GLYCEMIC MGMT CONSULT PRN (11:24)
[2022-07-08] MEDS ORDERED: diphenhydrAMINE Capsule 25 MG CAP PO PRN (11:24)
[2022-07-08] MEDS ORDERED: CYCLOBENZAPRINE HCL 10 MG TAB PO PRN (11:24)
[2022-07-08] MEDS ORDERED: MAGNESIUM HYDROXIDE SUSP 30 ML UDC PO PRN (11:24)
[2022-07-08] MEDS ORDERED: DO NOT ADMINISTER FLU VACCINE PRN (11:24)
[2022-07-08] MEDS ORDERED: SOD PHOSPHATE/SOD BIPHOSPHATE ENEMA 132 ML BTL PR PRN (11:24)
[2022-07-08] MEDS ORDERED: METOCLOPRAMIDE HCL INJ 5 MG/ML 2 ML VIAL IV PRN (11:24)
[2022-07-08] MEDS ORDERED: ALUMINUM/MAGNESIUM SUSP 30 ML UDC PO PRN (11:24)
[2022-07-08] MEDS ORDERED: LORazepam 0.5 MG TAB PO PRN (11:24)
[2022-07-08] MEDS ORDERED: RACEPINEPHRINE 2.25% NEBU SOLN 0.5 ML VIAL INH PRN (11:24)
[2022-07-08] MEDS ORDERED: NALOXONE HCL 0.4 MG/1 ML VIAL/CARP IV PRN (11:24)
[2022-07-08] MEDS ORDERED: traMADol HCL 50 MG TABLET PO PRN (11:24)
[2022-07-08] MEDS ORDERED: ACETAMINOPHEN 1,000 MG/100 ML VIAL IV PRN (11:24)
[2022-07-08] MEDS ORDERED: LORazepam 2 MG/1 ML VIAL IV PRN (11:24)
[2022-07-08] MEDS ORDERED: hydrOXYzine HCl 25 MG TAB PO PRN (11:24)
[2022-07-08] MEDS ORDERED: PROMETHAZINE HCL 12.5 MG in SODIUM CHLORIDE 0.9% 50 ML IV PRN (11:24)
[2022-07-08] MEDS ORDERED: FAMOTIDINE 20 MG TAB PO PRN (11:24)
[2022-07-08] MEDS ORDERED: ACETAMINOPHEN 500 MG TAB PO PRN (11:24)
[2022-07-08] MEDS ORDERED: DO NOT ADMINISTER PNEUMOCOCCAL VACCINE PRN (11:24)
[2022-07-08] MEDS ORDERED: ONDANSETRON 4 MG OD TAB PO PRN (11:24)
[2022-07-08] MEDS ORDERED: bisacodyL 10 MG SUPP PR PRN (11:24)
[2022-07-08] MEDS ORDERED: dexAMETHasone 8 MG in SYRINGE 0 ML IV PRN (11:24)
--- NOTE | 2022-07-08 11:45 | Hospitalist Consultation ---
Date of Consultation July 08, 2022 Assessment & Plan (1) Herniation of cervical intervertebral disc with radiculopathy: - POD #0, EBL 5 cc, no complications. 1 TASIA drain placed. - Pain/ABX/IVF/diet/drain management/transfusion needs/activity per primary team - Rescue Narcan ordered for over sedation PRN - VTE prophylaxis per primary service- SCDs in place - CBC and BMP in AM. - Baseline Hgb: 13.5 06/14/2022 - Baseline renal function: Creatinine 0.80, GFR 89.7 06/05/2022 (2) Diabetes type 2, uncontrolled: - POSTER> Trulicity, metformin. Hold during admission. - Pharmacy consulted for glycemic management by primary team. - Preop BS - A1c 04/23 6.6% - DM diet. (3) Premature atrial complexes: - History of, continue metoprolol 25 mg twice daily. - Preop EKG this a.m.: NSR. (4) GERD without esophagitis: - Continue pantoprazole. Pepcid PRN. - Isolated incidence of gastritis years ago 2/2 alcohol binge. No longer drinks. No history of PUD. (5) Chronic cerebral ischemia: - Head CT with chronic cerebral ischemia, patient without any knowledge of prior strokes. Does not follow with neurology. - Continue ASA daily starting tomorrow POD #1. (6) Anxiety and depression: - Continue Lexapro daily, with lorazepam 0.5 g as needed daily. (7) Tobacco dependence: - Nicotine patch offered while admitted. Plan - Admitted to [facility] per primary team. - SCDs ordered for VTE PPx. - Full code. Supervising Physician Co-Signing Physician Notes Patient seen and examined, chart reviewed, case discussed with Kimberly Vergara PA-C and I agree with the assessment and plan as above except as otherwise noted Labs and images reviewed 46-year-old female with history of DM, PVCs, GERD, anxiety, tobacco use, clear- cell s/p partial right nephrectomy 2014 who is now s/p 1/[address] Acevedo. Doing well postop. No pain, chest pain, lightheadedness, dizziness, abdominal pain. Does have sore throat without sputum production, no shortness of breath. Hemodynamically stable. Agree with management of chronic issues above, continue Pepcid, would also continue Protonix for GERD prophylaxis. 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 Acevedo. Hospitalist group was consulted for post-operative medication management. Today, she is POD#0 and feels well. In the bilateral shoulder pressure, which was present prior to surgery, also reports dry throat, some phlegm which she attributes to intubation for procedure, otherwise without any complaints. About 30 cc of pain medication by her RN. No numbness, tingling, weakness. Denies fever/chills, weakness, chest pain, palpitations, shortness of breath, cough, orthopnea, abdominal pain, nausea, vomiting. Allergies Allergy/AdvReac Type Severity Reaction Status Date / Time mold Allergy Severe SHORTNESS Verified 07/08/22 06:43 OF BREATH fentanyl Allergy Intermediate SKIN RASH Verified 07/08/22 06:43 morphine Allergy Intermediate RASH Verified 07/08/22 06:43 Iodinated Contrast Media AdvReac Intermediate PALPITATIONS, Verified 07/08/22 06:43 FLUSHING nicotine AdvReac Intermediate HEART Verified 07/08/22 06:43 RACES WITH PATCH oxycodone AdvReac Intermediate GI SYMPTOMS Verified 07/08/22 06:43 Home Medications Medication Instructions Recorded Confirmed Type acetaminophen 650 mg 650 mg PO Q8H PRN Pain 02/16/21 07/08/22 History tablet,extended release aspirin 81 mg tablet,delayed 81 mg PO QAM 02/16/21 07/08/22 History release blood sugar diagnostic (Accu-Chek #300 ea 08/09/21 06/22/22 Rx Dena Plus test strips) lancets 33 gauge (BD Ultra Fine #300 ea 08/09/21 06/22/22 Rx Lancets) cyclobenzaprine 10 mg tablet 10 mg PO TID PRN muscle spasm #20 02/02/22 07/08/22 Rx tabs ketorolac 10 mg tablet 10 mg PO Q8H PRN pain #20 tabs 02/03/22 07/08/22 Rx escitalopram oxalate 10 mg tablet 10 mg PO QAM #90 tabs 03/15/22 07/08/22 Rx (Lexapro) metoprolol tartrate 25 mg tablet 25 mg PO BID #60 tabs 04/11/22 07/08/22 Rx lorazepam 0.5 mg tablet 0.5 mg PO DAILY PRN anxiety #10 04/28/22 07/08/22 Rx tabs cholecalciferol (vitamin D3) 125 5,000 unit PO HS 05/02/22 07/08/22 History mcg (5,000 unit) tablet metformin 500 mg tablet,extended 1,000 mg PO BID #360 tabs 05/03/22 07/08/22 Rx release 24 hr dulaglutide 1.5 mg/0.5 mL 1.5 mg (0.5 mL) subcut Q7D #2 mL 05/10/22 07/08/22 Rx subcutaneous pen injector pantoprazole 40 mg tablet,delayed See Rx Instructions .Route 06/13/22 07/08/22 Rx release .COMPLEX #180 tabs ondansetron 4 mg disintegrating 4 mg PO Q8H PRN nausea and 07/05/22 07/08/22 Rx tablet vomiting #30 tabs hydrocodone 5 mg-acetaminophen 325 1 tab PO Q6H PRN pain #30 tabs 07/08/22 Rx mg tablet Patient History Medical History Acid reflux Controlled and stable Adnexal cyst Stable - no current issues Anxiety 06/2022- seen in [place] ER for chest pain, was told it was anxiety related - has follow up with PCP on 06/17/22 Cervical spinal stenosis Chronic bronchitis Stable Chronic cerebral ischemia - Mild amount of old white matter spots on MRI of brain consistent with chronic cerebral ischemia per neuro consultation 12/23/21 -No known CVAs per patient- takes ASA daily per PCP recommendations; does not follow with neuro 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) Surgical History H/O partial nephrectomy RIGHT (2014) FOR RENAL MASS H/O tubal ligation subsequent reversal History of colonoscopy History of dilatation and curettage History of esophagogastroduodenoscopy (EGD) History of reversal of tubal ligation Hx of fusion of cervical spine "doesn't have good full ROM, can go up and down and side to side, just not far" Previous delivery affecting , antepartum Renal mass CANCER RIGHT-PARTIAL [id number] CHEMO/NO RADIATION F/U DR LOVETT S/P epidural steroid injection cervical [place] teeth extracted Family History Uncle Anemia Kidney stones Mother Asthma Breast cancer Hypertension Father Diabetes Atrial fibrillation Grandmother Diabetes Myocardial infarction Grandfather Myocardial infarction Heart disease Stroke Sister Obesity Thyroid disease Denies family history of Colon cancer Ovarian cancer Prostate cancer Colorectal cancer Social History Smoking Status: Current every day smoker Tobacco Type: Cigarettes Age Started Using Tobacco: 15; packs per day: 0.5; Cigarettes Per Day: 15; Second Hand Exposure: No; Do You Dip or Chew Tobacco: No; Tobacco Cessation Education Requested by Patient: No Hx Alcohol Use: Yes Alcohol type: beer Alcohol Intake Frequency: Monthly or Less Hx Substance Use: Yes (medical marijuana) Substance Use Type Other:: medical marijuana Preferred Language: [place] Communication Ability: Effective Visual Impairment: No Limitations Hearing Ability: Normal Medication Manager Required: No Beliefs That Will Affect Care: None marital status: marital status details: Ortiz Rick ([phone] Current Living Situation: Spouse and Family Current Living Situation Comment: lives at home with , son 21, and pets current occupational status: disabled Other Information That Helps Us Care for You: No Feels Safe at Home: Yes Safety Concerns: Feels Safe At This Time Childhood Exposure to Second-Hand Smoke: Yes caffeine: No Dental Care, Regularly: Yes Physical Activity Frequency: Daily Physical Activity Frequency Comment: walking, House work Seatbelt Use: always Sunscreen Use: Yes Assistive Devices: None Review of Systems Review of Systems: Constitutional: No fever/chills, weakness, fatigue, myalgias, anorexia, night sweats Eyes: No diplopia, no worsening or blurred vision ENT: normal hearing, no trouble swallowing Respiratory: No cough, sputum, dyspnea at rest or on exertion Cardiovascular: No chest pain, tightness or palpitations Abdomen: No pain, nausea, vomiting, diarrhea or constipation : Denies dysuria, hematuria, increased urgency/frequency, urinary retention Musculoskeletal: b/l shoulder pressure, present prior to surgery; No joint pain, calf pain, swelling Neurologic: No weakness, numbness/tingling, or balance problems Psychiatric: No anxiety or depression Skin: No rash or itch Physical Exam Physical Exam: Constitutional: No fever/chills, weakness, fatigue, myalgias, anorexia, night sweats Eyes: No diplopia, no worsening or blurred vision ENT: normal hearing, no trouble swallowing Respiratory: No cough, sputum, dyspnea at rest or on exertion Cardiovascular: No chest pain, tightness or palpitations Abdomen: No pain, nausea, vomiting, diarrhea or constipation : Denies dysuria, hematuria, increased urgency/frequency, urinary retention Musculoskeletal: No joint pain, calf pain, swelling Neurologic: No weakness, numbness/tingling, or balance problems Psychiatric: No anxiety or depression Skin: No rash or itch Results & Data Results & Data ([facility]) Vital Signs (Past 12 Hours) Vital Signs Temp Pulse Pulse Resp BP Pulse Ox O2 Del Method 07/08/22 11:19 36.4 C L 88 16 101/67 97 Nasal Cannula 07/08/22 10:45 99 H 19 105/72 98 Nasal Cannula 07/08/22 10:15 36.3 C L 79 15 114/68 98 Nasal Cannula 07/08/22 10:05 77 19 121/84 99 Nasal Cannula 07/08/22 09:55 71 21 120/81 97 Nasal Cannula 07/08/22 09:45 69 18 120/82 97 Nasal Cannula 07/08/22 09:25 85 21 124/79 94 Oxymask 07/08/22 09:35 78 17 120/85 97 Nasal Cannula 07/08/22 09:15 106 H 21 118/86 93 Oxymask 07/08/22 09:06 36.1 C L 119 H 19 115/92 91 Oxymask 07/08/22 06:57 36.9 C 77 20 126/73 96 Room Air O2 Flow Rate 07/08/22 11:19 2 07/08/22 10:45 3 07/08/22 10:15 3 07/08/22 10:05 4 07/08/22 09:55 4 07/08/22 09:45 4 07/08/22 09:25 4 07/08/22 09:35 4 07/08/22 09:15 10 07/08/22 09:06 6 07/08/22 06:57 Laboratory Results Abnormal lab results 07/08/22 07/08/22 Range/Units 07:26 09:14 POC Glucose 153 H 117 H (70-99) mg/dl Diagnostic Findings Cervical Spine X-Ray 07/08/22 00:00 FL cervical 2-3V CLINICAL HISTORY: C6-C7 ACDF COMPARISON STUDY: Cervical spine MRI December 21, 2021. FLUOROSCOPY TIME: 18.5 seconds. FLUOROSCOPIC IMAGES: 3 FINDINGS: Endotracheal tube is partially imaged. Surgical drain is in place. Previous C4-C5 and C5-C6 anterior discectomies are noted. There is interval C6- C7 anterior discectomy and fusion. IMPRESSION: Fluoroscopy provided during C6-C7 anterior discectomy fusion. ACT 112: Negative or not required by law. Electronically signed by: Ricky Mendoza M.D. 07/08/2022 9:51 AM ECG Additional Comments: Normal sinus rhythm Low voltage QRS Cannot rule out Anterior infarct , age undetermined Abnormal ECG When compared with ECG of 14-JUN-2022 11:04, No significant change was found. PG Care Time/CCT Total # of Minutes Spent Total Time Spent with Patient: Total time spent is greater than 50% in coordination of care (as documented) at patient's floor/unit and/or counseling patient: Coding Level of Care Code INP/OBS CONSULT LVL 3, 45 MIN Diagnoses Herniation of cervical intervertebral disc with radiculopathy M50.10 Diabetes type 2, uncontrolled E11.65 Premature atrial complexes I49.1 GERD without esophagitis K21.9 Chronic cerebral ischemia I67.82 Anxiety and depression F41.9; F32.9 Tobacco dependence F17.200
[2022-07-08] MEDS ORDERED: GLUCAGON FOR INJ 1 MG VIAL SQ PRN (11:46)
[2022-07-08] MEDS ORDERED: DEXTROSE 50% 50 ML SYRINGE IV PRN (11:46)
[2022-07-08] MEDS ORDERED: CARBOHYDRATES FOR HYPOGLYCEMIA PO PRN (11:46)
[2022-07-08] MEDS ORDERED: GLUCOSE 10 TAB/TUBE PO PRN (11:46)
[2022-07-08] MEDS ORDERED: GLUCOSE 40% GEL 15 GM TUBE PO PRN (11:46)
[2022-07-08] MEDS: SODIUM CHLORIDE 0.9% 1000ML 1,000 ML IV SCH ×2 (12:02→21:35)
[2022-07-08] MEDS: HYDROmorphone INJ 0.5 MG/0.5 ML SYR IV PRN ×2 (12:02→20:40)
--- NOTE | 2022-07-08 12:31 | Anesthesiology Progress Note ---
Date of Service July 08, 2022 Anesthesia Post Procedure Vital Signs Vital Signs: Temp Pulse Pulse Resp BP Pulse Ox Pulse Ox 07/08/22 12:12 36.6 C 93 H 17 109/74 95 07/08/22 11:24 86 18 96 07/08/22 11:53 36.6 C 83 18 109/74 96 07/08/22 11:44 96 07/08/22 11:19 36.4 C L 88 16 101/67 97 07/08/22 10:45 99 H 19 105/72 98 07/08/22 10:15 36.3 C L 79 15 114/68 98 07/08/22 10:05 77 19 121/84 99 07/08/22 09:55 71 21 120/81 97 07/08/22 09:45 69 18 120/82 97 07/08/22 09:25 85 21 124/79 94 07/08/22 09:35 78 17 120/85 97 07/08/22 09:15 106 H 21 118/86 93 07/08/22 09:06 36.1 C L 119 H 19 115/92 91 07/08/22 06:57 36.9 C 77 20 126/73 96 O2 Del Method O2 Del Method O2 Flow Rate O2 Flow Rate 07/08/22 12:12 Nasal Cannula 1 07/08/22 11:24 Nasal Cannula 1.5 07/08/22 11:53 Nasal Cannula 1 07/08/22 11:44 Nasal Cannula 1 07/08/22 11:19 Nasal Cannula 2 07/08/22 10:45 Nasal Cannula 3 07/08/22 10:15 Nasal Cannula 3 07/08/22 10:05 Nasal Cannula 4 07/08/22 09:55 Nasal Cannula 4 07/08/22 09:45 Nasal Cannula 4 07/08/22 09:25 Oxymask 4 07/08/22 09:35 Nasal Cannula 4 07/08/22 09:15 Oxymask 10 07/08/22 09:06 Oxymask 6 07/08/22 06:57 Room Air Pain Intensity Anterior Neck: Pain Intensity: 4 Transfer of Care Handoff Completed per policy Notes Mental Status: alert / awake / arousable and participated in evaluation Patient Amnestic to Procedure: Yes Nausea / Vomiting: adequately controlled Pain: adequately controlled Airway Patency, RR, SpO2: stable & adequate BP & HR: stable & adequate Hydration State: stable & adequate Anesthetic Complications: no major complications apparent and Pt Satisfied with anesthetic care
--- NOTE | 2022-07-08 14:34 | Pharmacy Report ---
Pharmacy Glycemic Short Note 2 - Date of Service July 08, 2022 - Glycemic Short BSG Results (Last 24 hours): 07/08/22 07/08/22 07/08/22 07:26 09:14 12:37 POC Glucose 153 H 117 H 127 H OUTPATIENT ANTIDIABETIC REGIMEN: * Metformin 1gm PO BID * Trulicity 1.5mg SQ qSaturday * HbA1c: 6.6% (04/28/22) ASSESSMENT: * Ms Cabrera is a 46yo diabetic F, POD 0 s/p spinal procedure with Dr Acevedo this morning. * It appears that pt received 4mg IV DXM preoperatively, which is expected to contribute to steroid-induced hyperglycemia. * BSG post-op looks good (127 mg/dL). * Will provide a small dose of Lantus x1 dose to prevent/lessen hyperglycemia risk in the PM. * Novolog added for correctional/prandial coverage. * Will continue to follow and adjust regimen as indicated. PLAN FOR INPATIENT GLYCEMIC CONTROL: * Hold outpatient oral diabetes medications * Basal insulin * Lantus 10 units SQ x1 dose * Bolus insulin * NovoLog per scale ACHS or Q6hrs while NPO * Goal Range: Low 110 mg/dL - High 140 mg/dL * Correction Factor: 30 mg/dL/unit * Nutritional / Prandial insulin per carb ratio of 1 unit per 10 grams CHO consumed
[2022-07-08] MEDS: HYDROCODONE/ACETAMOPHEN 5/325MG TAB PO PRN (15:32)
--- NOTE | 2022-07-08 16:00 | Electrocardiogram Report ---
Test Reason : Blood Pressure : / mmHG Vent. Rate : 073 BPM Atrial Rate : 073 BPM P-R Int : 138 ms QRS Dur : 074 ms QT Int : 394 ms P-R-T Axes : 033 -22 022 degrees QTc Int : 434 ms Normal sinus rhythm Low voltage QRS Poor R wave progression, consider anterior [place] vs. lead placement vs. LVH Abnormal ECG When compared with ECG of 14-JUN-2022 11:04, No significant change was found Confirmed by Chandrakant Flores ([id number]) on 07/08/2022 3:59:42 PM Referred By: Pro Acevedo Confirmed By:Chandrakant Flores
[2022-07-08] MEDS: HYDROmorphone INJ 1 MG/ML SYRINGE IV PRN (16:20)
[2022-07-08] MEDS ORDERED: CHOLECALCIFEROL 5,000 UNITS 125 MCG TAB PO SCH (16:30)
[2022-07-08] MEDS ORDERED: LANTUS PER UNIT CHARGE SQ SCH (16:30)
[2022-07-08] MEDS: ceFAZolin 2000MG 2,000 MG/15 ML SYR IV SCH (17:01)
[2022-07-08] MEDS: CHECK SCOPOLAMINE PATCH PLACEMENT SCH (17:01)
[2022-07-08] MEDS: INSULIN ASPART PER UNIT SC SCH ×2 (18:00→20:43)
[2022-07-08] MEDS: METOPROLOL TARTRATE 25 MG TAB PO SCH (20:35)
[2022-07-08] MEDS ORDERED: DOCUSATE SODIUM/SENNA 50/8.6MG TAB PO SCH (21:00)
[2022-07-09] MEDS: ceFAZolin 2000MG 2,000 MG/15 ML SYR IV SCH (00:27)
[2022-07-09] MEDS: CHECK SCOPOLAMINE PATCH PLACEMENT SCH ×2 (00:28→09:13)
[2022-07-09] MEDS: HYDROCODONE/ACETAMOPHEN 5/325MG TAB PO PRN ×2 (01:59→07:19)
[2022-07-09] MEDS: HYDROmorphone INJ 1 MG/ML SYRINGE IV PRN (04:08)
[2022-07-09] MEDS ORDERED: POLYETHYLENE (MIRALAX) 17 GM PACK PO SCH (06:00)
[2022-07-09 06:27] LABS: Basophils # (auto) 0.04 K/uL (0-0.2); Basophils % (auto) 0.5 %; Eosinophils # (auto) 0.27 K/uL (0-0.50); Eosinophils % (auto) 3.4 %; Hematocrit (blood only) 37.5 % (34.1-44.9); Hemoglobin 12.3 g/dl (12.0-16.0); Immature Granulocytes # (auto) 0.01 K/uL (0.00-0.02); Immature Granulocytes % (auto) 0.1 %; Lymphocytes # (auto) 2.03 K/uL (1.2-3.4); Lymphocytes % (auto) 25.2 %; Mean Corpuscular Hemoglobin 29.8 pg (25.0-34.0); Mean Corpuscular Hgb Conc 32.8 g/dL (32.0-36.0); Mean Corpuscular Volume 90.8 fL (80.0-100.0); Mean Platelet Volume 10.6 fL (9.4-12.3); Monocytes # (auto) 0.46 K/uL (0.24-0.82); Monocytes % (auto) 5.7 %; Neutrophils # (auto) 5.24 K/uL (1.4-6.5); Neutrophils % (auto) 65.1 %; Platelet Count 193 K/uL (130-400); RDW Coefficient of Variation 14.8 % (11.5-14.5); RDW Standard Deviation 49.5 fL (36.4-46.3); Red Blood Count 4.13 M/uL (3.93-5.22); White Blood Count 8.05 K/ul (4.8-10.8)
[2022-07-09 06:56] LABS: Calcium 8.1 mg/dl (8.5-10.1); Creatinine Clr Calc Pharmacy 109.4 ml/min; Est GFR (African American) 122.1 ml/min; Est GFR (Non-African American) 105.4 ml/min; Potassium 4.1 mmol/L (3.5-5.1)
--- NOTE | 2022-07-09 08:14 | Hospitalist Progress Note ---
Date of Service July 09, 2022 Assessment & Plan (1) Herniation of cervical intervertebral disc with radiculopathy: Plan: - POD #1 s/p surgery by Dr. Acevedo, EBL 5 cc, no complications. 1 TASIA drain placed. 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 Can resume on discharge. (3) Premature atrial complexes: Plan: - History of, continue metoprolol 25 mg twice daily. - Preop EKG this admission: NSR. (4) GERD without esophagitis: Plan: - Continue pantoprazole. Pepcid PRN. - Isolated incidence of gastritis years ago 2/2 alcohol binge. No longer drinks. No history of PUD. (5) Chronic cerebral ischemia: Plan: - Head CT with chronic cerebral ischemia, patient without any knowledge of prior strokes. Does not follow with Neurology. - Continue ASA daily starting today POD #1. (6) Anxiety and depression: Plan: - Continue Lexapro daily, with lorazepam 0.5 g as needed daily. (7) Tobacco dependence: Plan: - Nicotine patch offered while admitted. Plan Dispo: home Hospitalist service will sign off. Admission and Anticipated Discharge Date Admission Date: July 08, 2022 Subjective Neck pain, otherwise no complaints. No overnight events. Review of Systems Review of Systems: All systems reviewed & are unremarkable except as noted in Subjective Physical Exam Constitutional: WD/WN, vitals as above Neck: C collar in place Respiratory: normal respiratory effort, lungs clear to auscultation Cardiovascular: RRR, no murmur, no edema Psychiatric: A+Ox3, euthymic affect Results & Data Results & Data ([facility]) Vital Signs (Past 12 Hours) Vital Signs Temp Pulse Pulse Resp BP Pulse Ox O2 Del Method 07/09/22 07:44 78 18 95 Room Air 07/09/22 07:22 36.4 C L 83 18 102/65 96 Room Air 07/09/22 04:04 36.9 C 75 16 117/79 97 Nasal Cannula 07/09/22 03:00 90 18 97 Nasal Cannula 07/09/22 01:58 37.0 C 85 16 102/70 95 Nasal Cannula 07/09/22 00:29 36.9 C 75 16 100/67 95 Nasal Cannula 07/08/22 22:30 36.8 C 76 16 107/71 94 Nasal Cannula 07/08/22 23:00 77 16 93 Nasal Cannula 07/08/22 20:31 36.7 C 82 18 99/58 L 95 Nasal Cannula O2 Flow Rate 07/09/22 07:44 07/09/22 07:22 07/09/22 04:04 1 07/09/22 03:00 1 07/09/22 01:58 2 07/09/22 00:29 1 07/08/22 22:30 1 07/08/22 23:00 1 07/08/22 20:31 2 PG Care Time/CCT Total # of Minutes Spent Total Time Spent with Patient: Total time spent is greater than 50% in coordination of care (as documented) at patient's floor/unit and/or counseling patient: Coding Level of Care Code 74964 SUB INP/OBS CARE 1/25MIN Medical Decision Making Low Complexity Diagnoses Herniation of cervical intervertebral disc with radiculopathy M50.10 Diabetes type 2, uncontrolled E11.65 Premature atrial complexes I49.1 GERD without esophagitis K21.9 Chronic cerebral ischemia I67.82 Anxiety and depression F41.9; F32.9 Tobacco dependence F17.200
--- NOTE | 2022-07-09 08:24 | Discharge Summary ---
Date of Service July 09, 2022 Admission HPI Per Admitting Provider This is a 46-year-old female presents with chronic persistent neck and arm pain after failing course of nonoperative care she is here for surgical intervention. Principal Diagnosis Several discrimination with radiculopathy Discharge Data Allergies Allergy/AdvReac Type Severity Reaction Status Date / Time mold Allergy Severe SHORTNESS Verified 07/08/22 06:43 OF BREATH fentanyl Allergy Intermediate SKIN RASH Verified 07/08/22 06:43 morphine Allergy Intermediate RASH Verified 07/08/22 06:43 Iodinated Contrast Media AdvReac Intermediate PALPITATIONS, Verified 07/08/22 06:43 FLUSHING nicotine AdvReac Intermediate HEART Verified 07/08/22 06:43 RACES WITH PATCH oxycodone AdvReac Intermediate GI SYMPTOMS Verified 07/08/22 06:43 Consultations 07/08/22 11:24 Consult Hospitalist Routine Procedures Performed Operation Date: 07/08/22 07:45 Actual Procedures p C6-C7 Anterior Cervical Discectomy and Fusion, Spinal Cord Monitoring(Not Applicable) - Pro Acevedo DO Ordered Studies 07/08/22 [place] cervical 2-3V Routine Hospital Course (1) Herniation of cervical intervertebral disc with radiculopathy: Patient 1 anterior cervical discectomy and fusion tolerated as well as taken to orthopedic. Labor postop day 1 she is swallowing well no hoarseness. TASIA drain decreasing appropriate. Excellent strength testing. Subsequent discharge home. Discharge orders instructions from the chart for further review. Total Time Total Time Spent Total Time Spent (In Minutes): 20 minutes Discharge Plan Discharge Items Patient Disposition: Home - Self-Care Reason For Visit: Cervical Disc Disorder with Radiculopathy, Unspeci Discharge Diagnosis: Cervical disc herniation with radiculopathy Activity: As commented below Non-emergency contact: Primary Care Provider Call non-emergency contact if: you have any medication questions Follow-up/Referrals: Viktoria Ballesteros MD [Primary Care Provider] - Diet: Regular Addtl Attending Provider Instructions: ACTIVITY RECOMMENDATIONS: SELF CARE INSTRUCTIONS AFTER CERVICAL FUSIONS 1. No smoking. Smoking drastically decreases the chance of a solid fusion. 2. No bending, lifting more than 5 pounds, or twisting (roll like a log when turning in bed). 3. You may shower 3 days after surgery. Thoroughly dry wound. Do not soak in the tub. 4. Cervical collar: Must be worn at all times including sleeping. You may remove the brace only to bath, eat and if you are sitting in a recliner. 5. Please walk as much as you can for exercise. Gradually increase the distance that you walk as your endurance increases. SPECIAL CARE INSTRUCTIONS: VERY IMPORTANT TO READ AND REVIEW A. Do not take any anti-inflammatory medications (i.e. Indocin, Advil, Aspirin, Naprosyn, Aleve, Motrin, etc.) as these may inhibit the chance of a solid fusion. Tylenol is okay to take. B. Your surgical incision has been closed with a cosmetic suture under the skin that will dissolve in about 6 weeks. In 14 days, you can use a pair of clean scissors and cut the suture that is left outside of the skin at the ends of your incision. C. Complications are uncommon, but please contact us if you have any signs or symptoms of: 1. wound infection (fever higher than 102.5 degrees F, redness, separation of wound, drainage, or increasing pain from the incision) 2. blood clots in legs (pain, swelling, redness and warmth in legs) 3. urinary tract infection (fever higher than 102.5 degrees, burning upon urination or increased frequency of urination) 4. nerve problems (inability to walk on your toes or heels, numbness, loss of bowel or bladder control) 5. any other symptoms that concern you. D. Please call the office at if you have any concerns or questions about your operation or recovery. MANAGING PAIN AFTER SPINAL SURGERY 1. Narcotic medication is intended for short-term use and will be provided for surgical pain. Surgical pain usually lasts for a period of 4-6 weeks. Narcotic medication includes Percocet, Vicodin, Darvocet, Tylenol #3 or Lortab. 2. Longer-term pain is more appropriately treated with non-narcotic medication such as Tylenol ES. 3. Muscle spasm is not appropriately treated with narcotics. Muscle relaxers such as Soma, Flexeril or Skelaxin can be used along with Tylenol ES. 4. Remember that we all live with some "aches and pains". This is not unusual or uncommon after an injury or as we get older. 5. We will provide appropriate medication within the normal guidelines of their prescribed use. We will also be very cautious and aware of potential abuse and extended duration of patients' medication needs. 6. Please allow 2-3 days to process refills. Prescriptions will not be mailed but must be picked up at the office. FOLLOW UP VISIT: Keep your scheduled follow-up appointment. Any questions, please call the office at . Pending Studies at Discharge: No Stand-Alone Forms: [facility], Smoking Cessation Medications and DC Order Prescriptions: New hydrocodone-acetaminophen 5-325 mg tablet 1 tab PO Q6H PRN (Reason: pain) Qty: 30 0RF Rx Instructions: 1 tab PO PRN; Continued (DME) Accu-Chek Dena Plus test strp Strip See Rx Instructions .ROUTE .MEDSUPPLY Qty: 300 3RF Rx Instructions: TEST THREE TIMES DAILY. DX: E11.65 (DME) lancets [BD Ultra Fine Lancets] 33 gauge misc See Rx Instructions .ROUTE .MEDSUPPLY Qty: 300 3RF Rx Instructions: TEST THREE TIMES DAILY. DX: E11.65 escitalopram oxalate [Lexapro] 10 mg tablet 10 mg PO QAM Qty: 90 1RF metoprolol tartrate 25 mg tablet 25 mg PO BID Qty: 60 5RF cholecalciferol (vitamin D3) 125 mcg (5,000 unit) tablet 5,000 unit PO HS Rx Instructions: TAKE THIS MEDICATION WITH THE HEAVIEST MEAL DAILY metformin 500 mg tablet extended release 24 hr 1,000 mg PO BID Qty: 360 3RF dulaglutide 1.5 mg/0.5 mL pen injector 1.5 mg subcut Q7D Qty: 2 3RF Rx Instructions: TAKES ON SATURDAYS. pantoprazole 40 mg tablet,delayed release (DR/EC) See Rx Instructions .ROUTE .COMPLEX Qty: 180 3RF Dose Instruction: TAKE 1 TABLET BY MOUTH TWICE A DAY Rx Instructions: TAKE 1 TABLET BY MOUTH TWICE A DAY ondansetron 4 mg tablet,disintegrating 4 mg PO Q8H PRN (Reason: nausea and vomiting) Qty: 30 0RF lorazepam 0.5 mg tablet 0.5 mg PO DAILY PRN (Reason: anxiety) Qty: 10 0RF cyclobenzaprine 10 mg tablet 10 mg PO TID PRN (Reason: muscle spasm) Qty: 20 0RF ketorolac 10 mg tablet 10 mg PO Q8H PRN (Reason: pain) Qty: 20 0RF aspirin 81 mg Tablet,Delayed Release (Dr/Ec) 81 mg PO QAM acetaminophen 650 mg Tablet Extended Release 650 mg PO Q8H PRN (Reason: Pain) Discharge Orders: Discharge Order (Routine); Ordered 07/09/22 Ordered By: Pro Acevedo Admission Data Admit Date/Time: 07/08/22 09:05 Attending Provider: Pro Acevedo Admit Provider: Pro Acevedo Primary Care Provider: Viktoria Ballesteros V. Other Providers: Ananth Lewis ; Bridgette Tai
[2022-07-09] MEDS ORDERED: LANTUS PER UNIT CHARGE SQ ONE (09:00)
[2022-07-09] MEDS ORDERED: ASPIRIN 81 MG ECTAB PO SCH (09:00)
[2022-07-09] MEDS ORDERED: ESCITALOPRAM OXALATE 10 MG TAB PO SCH (09:00)
[2022-07-09] MEDS: INSULIN ASPART PER UNIT SC SCH (09:12)
[2022-07-09] MEDS: METOPROLOL TARTRATE 25 MG TAB PO SCH (09:14)
[2022-07-09] MEDS: HYDROmorphone INJ 0.5 MG/0.5 ML SYR IV PRN (11:12)
== END 2022-07-09 12:00 | disposition home or self-care (01) ==
LOC: ASU 06:13 → 3E 09:05 → INTOOBSV 09:05